=== PATIENT | male | born 1970 | race Caucasian/White ===

== ENCOUNTER 2017-07-02 22:18 | Inpatient (IN) | END 2017-07-07 14:58 | disposition home or self-care (01) | DRG 440 ==

== ENCOUNTER 2017-09-26 00:36 | Emergency (ER) | END 2017-09-26 06:40 | disposition home or self-care (01) ==

== ENCOUNTER 2018-11-06 11:07 | Inpatient (IN) | payer OTHER ==
[~2018-11-06] VITALS: Ht 175.3 cm; Wt 103.5 kg
[~2018-11-06 11:07] MED LIST: ALPR0.5T PO; CIPR500T4 PO; DOCU-144 PO; DOCU-216 PO; FAMO20TA18 PO; GLIP5TAB13 PO; HYDR-3601 PO; HYDR-4011 PO; IBUP-1542 PO; MAGN400O19 PO; METF-849 PO; METR-122 PO
[2018-11-06] MEDS ORDERED: KETOROLAC 15 MG INJ IV STA (11:44)
[2018-11-06] MEDS ORDERED: HEPARIN 25000 UNITS/250 ML 250 ML IV STA ×2 (12:38)
[2018-11-06] MEDS ORDERED: NITROGLYCERIN (SL) 0.4 MG TAB ONE (12:38)
[2018-11-06] MEDS ORDERED: HEPARIN 1000 UNITS/ML 10 ML INJ ONE ×2 (12:41→13:49)
[2018-11-06] MEDS: NITROGLYCERIN (SL) 0.4 MG TAB SL PRN ×2 (12:48→13:35)
[2018-11-06] MEDS ORDERED: NITROGLYCERIN (SL) 0.4 MG TAB SL ONE (13:00)
[2018-11-06] MEDS ORDERED: ATORVASTATIN 80 MG TAB PO ONE (13:00)
[2018-11-06] MEDS ORDERED: HEPARIN 1000 UNITS/ML 10 ML INJ IV ONE (13:00)
[2018-11-06] MEDS ORDERED: ONDANSETRON 4 MG INJ IV STA (13:13)
[2018-11-06] MEDS ORDERED: morphine 4 MG/ML VIAL IV STA (13:13)
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
[2018-11-06] MEDS ORDERED: FENTAnyl 50 MCG/ML VIAL ONE (13:49)
[2018-11-06] MEDS ORDERED: LIDOCAINE 1% (MDV) 20 ML INJ ONE (13:49)
[2018-11-06] MEDS ORDERED: MIDAZOLAM 1 MG/ML 2 ML INJ ONE (13:49)
[2018-11-06] MEDS ORDERED: IODIXANOL LOCM 100 ML BTL ONE (13:49)
[2018-11-06] MEDS ORDERED: VERAPAMIL 5 MG INJ ONE ×2 (13:50→14:19)
[2018-11-06] MEDS ORDERED: NITROGLYCERIN (IC) 100 MCG/ML INJ ONE ×2 (13:50→14:29)
--- NOTE | 2018-11-06 13:56 | CONS ---
Assessment/Plan Assessment/Plan Hospital Course (Demo Recall) Acute anterior ST elevation myocardial infarction Severe coronary artery disease include 100% occlusion of the LAD as well as significant obtuse marginal and ramus intermediate disease Status post emergent PCI of the left anterior descending artery Diabetes Most likely dyslipidemia History of pancreatitis History of anxiety Abnormal EKG due to above Recommendations: Aspirin and Brilinta needs to be continued. Importance of compliant with the medication was emphasized to the patient. Prescription has been left for the patient with the coupons so he can have it filled as soon as possible. Echocardiogram will be checked tomorrow. Serial cardiac enzyme will be checked but is expected to be elevated and rising over the next 24 hours at least Diabetic management as per internal medicine Statin has been started ICU care will be continued Angiomax will be continued for the next 2 to 3 hours. She to be pulled 2 hours after Angiomax was stopped We will plan for PCI of ramus intermediate and possibly obtuse marginal in about 48 hours if patient remains stable and no complication with the current PCI and patient remains compliant with the medication. I have my reservations about his complaints he has not been taking medication before as he was discharged a year ago with diabetic medication. I have emphasized with him multiple times the importance of compliant with the medication. More than 45 minutes critical care time was spent management treatment is critically ill patient excluding any procedures Thank you for this referral. We will continue to follow along with you JEWEL HERNANDEZ MD [facility] Consultation Date/Type/Reason Admit Date/Time Date of Consultation: Nov 06, 2018 Type of Consult Cardiology Reason for Consultation stemi Requesting Provider: NEELA SHIRLEY MD Date/Time of Note DATE: 11/06/18 TIME: 13:56 Hx of Present Illness Emergent interventional cardiology consultation note/critical care note Chief complaint: Chest pain Reason for consult: ST elevation [place] History of present illness: Thank you for this referral. History was informed the patient discussion with the staff and physician review of the old chart. This is a 47-year-old gentleman with history of diabetes although on no medication, pancreatitis about a year ago, anxiety who presents emergency room with cough complaint of chest pain. Pain Has been on and off. When he got the emergency room initially the pain was improved. EKG EKG done initially in the emergency did not show acute ST elevation myocardial infarction. Troponin was positive. Patient was diagnosed with non-ST elevation myocardial infarction However later on patient complained of recurrent chest pain and worsening. EKG repeated at [address] elevation myocardial infarction preop was called at that time code STEMI was activated. Patient was seen by me in the emergency room. After evaluation consent was obtained for emergent coronary angiography Patient underwent emergent coronary angiography and PCI of his underpants and occluded LAD. Patient currently in the ICU on Angiomax drip. His chest pain has significantly reduced now. He was also noted to have multivessel disease including significant ramus very small obtuse marginal disease as well. Allergies: No known drug allergies Medications At Home none Family history: No history of early coronary artery disease Social history: Does not smoke or drink Past medical history: History of pancreatitis 2018. At that time he was noted to have also diabetes has been discharged on oral medication which he has not taken any has not follow with any doctors. Review of system: Patient denies all others except for above-mentioned Past Medical History Home Meds Discontinued Scripts Hydrocodone/Acetaminophen ([place] 5-325 Tablet) 1 Each Tablet, 1 TAB PO Q6H PRN for PAIN, #20 TAB Prov:SUZI,AYLA 09/26/17 Ibuprofen* (Motrin*) 600 Mg Tab, 600 MG PO Q6, #30 TAB Prov:SUZI,AYLA 18 Magnesium Hydroxide* (Milk Of Magnesia*) 400 Mg/5 Ml Oral.susp, 30 ML PO DAILY for CONSTIPATION, #200 ML Prov:BROOKS,BEN V. PHARMACEUTICAL LABORATORY TECHNICIAN 07/07/17 Docusate Sodium* (Colace*) 100 Mg Capsule, 200 MG PO DAILY, #30 CAP Prov:BROOKS,BEN V. PHARMACEUTICAL LABORATORY TECHNICIAN 07/07/17 Glipizide* (Glipizide*) 5 Mg Tablet, 5 MG PO AC BREAKFAST, #30 TAB Prov:BROOKS,BEN V. PHARMACEUTICAL LABORATORY TECHNICIAN 07/07/17 Metformin* (Glucophage*) 500 Mg Tab, 500 MG PO WITH BREAKFAST DINNE, #60 TAB Prov:BROOKS,BEN V. PHARMACEUTICAL LABORATORY TECHNICIAN 07/07/17 Alprazolam* (Xanax*) 0.5 Mg Tab, 0.5 MG PO Q12 PRN for ANXIETY, #30 TAB Prov:BROOKS,BEN V. PHARMACEUTICAL LABORATORY TECHNICIAN 07/06/17 Metronidazole* (Metronidazole*) 500 Mg Tablet, 500 MG PO Q8 for 5 Days, #15 TAB Prov:BROOKS,BEN V. PHARMACEUTICAL LABORATORY TECHNICIAN 07/06/17 Ciprofloxacin Hcl* (Ciprofloxacin Hcl*) 500 Mg Tablet, 500 MG PO BID for 5 Days, #10 TAB Prov:BROOKSTUNGA V. PHARMACEUTICAL LABORATORY TECHNICIAN 07/06/17 Docusate Sodium (Dok) 100 Mg Capsule, 100 MG PO BID, #60 CAP Prov:BROOKS,BEN V. PHARMACEUTICAL LABORATORY TECHNICIAN 07/06/17 Famotidine* (Famotidine*) 20 Mg Tablet, 20 MG PO HS, #30 TAB Prov:BROOKSPEARLBEN V. PHARMACEUTICAL LABORATORY TECHNICIAN 07/06/17 Hydrocodone Bit-Acetaminophen (Hydrocodone Bit-APAP) 5-325MG Tablet, 1 TAB PO Q4H PRN for PAIN, #14 TAB Prov:BROOKSTUNGA V. PHARMACEUTICAL LABORATORY TECHNICIAN 07/06/17 Medications Current Medications Nitroglycerin (Nitroglycerin (Sl Tab) 0.4 Mg) 1 tab Q5M UP TO 3 DOSES PRN SL .CHEST PAIN Last administered on 11/06/18at 13:35; Admin Dose 1 TAB; Start 11/06/18 at 13:00 Allergies: Coded Allergies: No Known Allergy (Unverified , 11/06/18) Past Surgical History Past Surgical Hx: no surgical history Social History Smoking Status: Never smoker Exam/Review of Systems Vital Signs Vitals Vital Signs Date Temp Pulse Resp B/P (MAP) Pulse Ox O2 O2 Flow FiO2 Time Delivery Rate 11/06/18 97.2 60 16 155/93 99 11:16 (113) Exam Exam General: no acute distress HEENT: NC/AT. pupils are equal. round. NECK: NO JVD. no stridor. CV: RRR. systolic murmur; no gallop or rubs. PULM: no wheezing or rhonchi. GI: SOFT, NT, ND, no rebound or guarding Extremity: trace B/L LE edema. no clubbing. neuro: awake and alert, OX3. Psych: calm and pleasant rectal: deferred : normal Vascular right femoral arterial sheath in place no active bleeding or hematoma noted EKGs multiple were reviewed. Initial EKG showed normal sinus rhythm with ST-T wave abnormalities. Subsequent EKG has showed normal sinus rhythm with anterior ST elevation myocardial infarction with reciprocal changes Chest x-ray done emergency room showed no acute cardiopulmonary disease Labs Result Diagram: 11/06/18 1111 11/06/18 1111 Results 24hrs Laboratory Tests Test 11/06/18 11:11 White Blood Count 11.2 #H Red Blood Count 5.08 # Hemoglobin 15.8 # Hematocrit 44.9 Mean Corpuscular Volume 88.4 Mean Corpuscular Hemoglobin 31.1 Mean Corpuscular Hemoglobin Concent 35.2 Red Cell Distribution Width 12.2 Platelet Count 275 Mean Platelet Volume 11.5 H Immature Granulocytes % 0.300 Neutrophils % 51.7 Lymphocytes % 30.4 Monocytes % 13.4 H Eosinophils % 3.4 Basophils % 0.8 Nucleated Red Blood Cells % 0.0 Immature Granulocytes # 0.030 Neutrophils # 5.8 Lymphocytes # 3.4 H Monocytes # 1.5 H Eosinophils # 0.4 Basophils # 0.1 Nucleated Red Blood Cells # 0.0 Prothrombin Time 12.0 Prothrombin Time Ratio 0.9 INR International Normalized Ratio 0.88 Activated Partial Thromboplast Time 22.8 L Sodium Level 139 Potassium Level 4.0 Chloride Level 104 Carbon Dioxide Level 26 Anion Gap 9 Blood Urea Nitrogen 9 Creatinine 0.71 Est Glomerular Filtrat Rate mL/min > 60 Glucose Level 233 H Calcium Level 8.7 Total Bilirubin 0.9 Direct Bilirubin 0.00 Indirect Bilirubin 0.9 Aspartate Amino Transf (AST/SGOT) 57 H Alanine Aminotransferase (ALT/SGPT) 76 H Alkaline Phosphatase 98 Troponin I 0.681 *H B-Type Natriuretic Peptide 162 H Total Protein 7.0 Albumin 3.6 Globulin 3.40 H Albumin/Globulin Ratio 1.05 Medications Medications Current Medications Nitroglycerin (Nitroglycerin (Sl Tab) 0.4 Mg) 1 tab Q5M UP TO 3 DOSES PRN SL .CHEST PAIN Last administered on 11/06/18at 13:35; Admin Dose 1 TAB; Start 11/06/18 at 13:00 JEWEL HERNANDEZ MD Nov 06, 2018 13:56
[2018-11-06] MEDS ORDERED: HYDROCODONE/APAP (5/325) TAB PO PRN (14:00)
[2018-11-06] MEDS ORDERED: ACETAMINOPHEN 325 MG TAB PO PRN ×2 (14:00→15:30)
[2018-11-06] MEDS ORDERED: morphine 2 MG INJ IV PRN ×2 (14:00→15:30)
[2018-11-06] MEDS ORDERED: ONDANSETRON 4 MG INJ IV PRN (14:00)
[2018-11-06] MEDS ORDERED: NACL 0.9% 3 ML SYG IV SCH (14:00)
--- NOTE | 2018-11-06 14:00 | EN ---
Date/Time of Note Date/Time of Note DATE: 11/06/18 TIME: 13:59 Event Note Cardiology Cardiology Event Note 47-year-old presented with anterior elevation myocardial infarction. Code STEMI was activated. Patient was seen by myself in the emergency room. Response alternatives of defecating selective right and left coronary angiography possible percutaneous coronary intervention discussed with the patient in detail. High risk of procedure including risk of infection vascular complication bleeding complication SD stroke arrhythmia renal failure etc. discussed with the patient. Consent has been obtained. We will proceed with procedure as soon as the Encoding Machine Operator team is here.. Full note will follow JEWEL HERNANDEZ MD Nov 06, 2018 14:00
--- NOTE | 2018-11-06 14:06 | HP ---
Date/Time of Note Date/Time of Note DATE: 11/06/18 TIME: 14:06 Assessment/Plan VTE Prophylaxis Pharmacological prophylaxis: other Assessment/Plan Hospital Course Patient is a male with no sniffing past medical history as patient has not seen doctors in quite some time who presents to [facility] for chest pain. Patient states that chest pain began around 10 AM this morning and it feels centralized and it feels general and as if it is a crushing feeling. Patient states that all the chest pain is mildly better it is still not gone away. Code STEMI was called. Patient currently denies any other symptoms. Denies significant shortness of breath, headache, nausea, vomiting, abdominal pain, leg pain, bowel or bladder dysfunction. Objective Physical physical exam General: Patient is laying in bed and answers questions appropriately Mentation: Patient is alert and oriented 4, Head: Normocephalic atraumatic Eyes: EOMI, pupils reactive to light Neck: Supple, nontender, midline Respiratory: Clear to auscultation bilaterally Cardiovascular: regular rate, no obvious murmurs Gastrointestinal: non-tender to palpation, bowel sounds heard. Neurological: Moves all extremities spontaneously Skin: No new skin lesions Assessment and plan ST elevation [place] -Cardiology to take patient into cardiac cath -Medications per cardiology Chest pain -Secondary to above ST elevation [place] Mild elevated AST and ALT -Very mild, monitor tomorrow, consider ultrasound if values increase Disposition -Patient to go to cardiac cath for emergent STEMI cath Result Diagram: 11/06/18 1111 11/06/18 1111 Results 24hrs Laboratory Tests Test 11/06/18 11:11 White Blood Count 11.2 #H Red Blood Count 5.08 # Hemoglobin 15.8 # Hematocrit 44.9 Mean Corpuscular Volume 88.4 Mean Corpuscular Hemoglobin 31.1 Mean Corpuscular Hemoglobin Concent 35.2 Red Cell Distribution Width 12.2 Platelet Count 275 Mean Platelet Volume 11.5 H Immature Granulocytes % 0.300 Neutrophils % 51.7 Lymphocytes % 30.4 Monocytes % 13.4 H Eosinophils % 3.4 Basophils % 0.8 Nucleated Red Blood Cells % 0.0 Immature Granulocytes # 0.030 Neutrophils # 5.8 Lymphocytes # 3.4 H Monocytes # 1.5 H Eosinophils # 0.4 Basophils # 0.1 Nucleated Red Blood Cells # 0.0 Prothrombin Time 12.0 Prothrombin Time Ratio 0.9 INR International Normalized Ratio 0.88 Activated Partial Thromboplast Time 22.8 L Sodium Level 139 Potassium Level 4.0 Chloride Level 104 Carbon Dioxide Level 26 Anion Gap 9 Blood Urea Nitrogen 9 Creatinine 0.71 Est Glomerular Filtrat Rate mL/min > 60 Glucose Level 233 H Calcium Level 8.7 Total Bilirubin 0.9 Direct Bilirubin 0.00 Indirect Bilirubin 0.9 Aspartate Amino Transf (AST/SGOT) 57 H Alanine Aminotransferase (ALT/SGPT) 76 H Alkaline Phosphatase 98 Troponin I 0.681 *H B-Type Natriuretic Peptide 162 H Total Protein 7.0 Albumin 3.6 Globulin 3.40 H Albumin/Globulin Ratio 1.05 HPI/ROS Admit Date/Time Admit Date/Time PMH/Family/Social Past Medical History Medications Current Medications Nitroglycerin (Nitroglycerin (Sl Tab) 0.4 Mg) 1 tab Q5M UP TO 3 DOSES PRN SL .CHEST PAIN Last administered on 11/06/18at 13:35; Admin Dose 1 TAB; Start 11/06/18 at 13:00 Coded Allergies: No Known Allergy (Unverified , 11/06/18) Past Surgical History Past Surgical Hx: no surgical history Family History Significant Family History: no pertinent family hx Social History Smoking Status: Never smoker Exam/Review of Systems Vital Signs Vitals Vital Signs Date Temp Pulse Resp B/P (MAP) Pulse Ox O2 O2 Flow FiO2 Time Delivery Rate 11/06/18 97.2 60 16 155/93 99 11:16 (113) NEELA MEDINA Nov 06, 2018 14:06
[2018-11-06] MEDS ORDERED: TICAGRELOR 90 MG TABLET ONE (14:12)
[2018-11-06] MEDS ORDERED: DEXTROSE 50% 50 ML SYRINGE IV PRN ×2 (14:30)
[2018-11-06] MEDS ORDERED: GLUCAGON 1 MG INJ IM PRN (14:30)
[2018-11-06] MEDS ORDERED: GLUCOSE GEL 15 GRAM TUBE PO PRN ×2 (14:30)
[2018-11-06] MEDS ORDERED: GLUCOSE GEL 15 GRAM TUBE BUCCAL PRN (14:30)
[2018-11-06] MEDS ORDERED: SOD CHLORIDE 0.9% 1,000 ML IV SCH (15:09)
--- NOTE | 2018-11-06 15:09 | OPR ---
Date/Time of Note Date/Time of Note DATE: 11/06/18 TIME: 15:04 Operative Report Procedure Date: Nov 06, 2018 Preoperative Diagnosis anterior STEMI Postoperative Diagnosis same Operation/Procedure Performed PCI LAD Surgeon see signature line Microsoft Bi Developer JESSIE Anesthesia Type: moderate sedation Estimated Blood Loss: minimal Transfusion none Specimen none Grafts/Implants none Complications none Procedure Description Viticulture Teacher: Jewel Coats MD Indication:. ST elevation myocardial infarction Procure performed: #1 Emergent left heart catheterization and selective right and left coronary angiogram #2 Right femoral angiogram 3. Emergent successful PTCA and stenting of proximal left anterior descending artery using a 3 x 38 mm Synergy drug-eluting stent 4. Thrombectomy of the left anterior descending artery using a Pronto device 5. Moderate sedation for more than 60 minutes Findings: 1. Left main: is normal and trirfurcates to LAD & LCX and ramus intermediate 2. LAD: has 100 % stenosis at proximal LAD with BYRON 0 flow. Successful PCI of this lesion no significant residual stenosis left 3. Left circumflex artery: is condominant. OM1 is a small and has has subtotal ostial stenosis 4. RCA: is codominant. it has 50 % stenosis at PDA 5. Ramus intermedius small to moderate-sized vessel with about up to 80-90 % stenosis LV EDP is 20 with no significant gradient across aortic valve Procedure in detail: Written informed consent with obtained after risks benefits and alternatives discussed with the patient in detail. risks including but not limited to risk of infection vascular complications, bleeding complications, HI stroke arrhythmia renal failure at even were discussed with the patient in detail. Patient was brought into the cardiac laborer operator and placed in supine position. Right and left groin area was prepped and draped in regular sterile fashion and then he was in anesthetized using 1% lidocaine. Right femoral artery was cannulated and using modified seldinger technique a 6 Telugu sheath was placed in the femoral artery. . JR4 catheter was advanced and engaged into the right coronary artery and angiographic view was obtained. A total of 4 guiding catheter was advanced to engage the left main coronary artery. MW wire was used and advanced across the lesion and placed distal to the lesion. I used a 2.5 x 12 mm balloon which was placed across the lesion and predilated the vessel. Then I used a Pronto and thrombectomy was done of the large amount of clot was removed. Intermittent intracoronary nitroglycerin verapamil was given. The knee is a 2.5 x 15 mm balloon and dilated the vessel more. Then I used a 3 x 30 mm Synergy drug-eluting stent which was placed across the lesion and deployed at 12 Johnnie. Finally a 3.25 x 8 mm noncompliant balloon was used and postdilated the stent and up to 20 Johnnie. Final angiographic view was obtained which showed BYRON-3 flow no evidence of dissection and no significant residual stenosis at the site of the stent. Then a pigtail was advanced to engage the left ventricle hemodynamics as recorded by pullback aortic pressure was measured. Femoral angiogram was performed Patient tolerated the procedure well with no complication. Patient is to be transferred to recovery room in stable condition. contrast used: Under 30 cc Visipaque Conclusions: Successful PTCA, thrombectomy/stenting of the proximal left anterior descending artery from 100% occlusion to no significant residual st enosis using a 3 x 30 mm Synergy drug-eluting stent Recommendations: Aggressive medical therapy. aspirin indefinitely dual antiplatlet therapy with aspirin and Brilinta. Will consider PCI of ramus and possibly obtuse marginal later time ICU care overnight JEWEL COATS MD [facility] JEWEL COATS MD Nov 06, 2018 15:09
[2018-11-06] MEDS ORDERED: OXYCODONE/ACETAMINOPHEN (5/325) TAB PO PRN ×2 (15:30)
[2018-11-06] MEDS ORDERED: BIVALIRUDIN 250 MG in SOD CHLORIDE 0.9% 500 ML IV SCH (15:30)
[2018-11-06 16:00] VITALS: PULSE 67
[2018-11-06 16:15] VITALS: Ht 175.3 cm; Wt 103.5 kg
[2018-11-06] MEDS: INSULIN ASPART [NOVOLOG] 3 ML PEN SC SCH ×2 (17:35→20:44)
[2018-11-06 19:00] VITALS: BP 139/88; RESP 15
[2018-11-06 20:00] VITALS: BP 121/73; PULSE 71; RESP 20
[2018-11-06] MEDS: ATORVASTATIN 80 MG TAB PO SCH (20:29)
[2018-11-06] MEDS: TICAGRELOR 90 MG TABLET PO SCH (20:43)
[2018-11-06] MEDS: DOCUSATE SODIUM 100 MG CAP PO SCH (20:45)
[2018-11-06 21:00] VITALS: BP 122/76; PULSE 76; RESP 18
[2018-11-06 22:00] VITALS: BP 152/91; PULSE 72; RESP 19
[2018-11-06 23:00] VITALS: BP 136/106; PULSE 84; RESP 12
[2018-11-07] VITALS (25 sets, daily range): BP systolic 82–130; BP diastolic 45–97; PULSE 67–111; RESP 13–26
[2018-11-07] MEDS: ACCU-CHEK XX SCH (01:40)
[2018-11-07] MEDS: INSULIN ASPART [NOVOLOG] 3 ML PEN SC SCH ×4 (08:34→20:32)
[2018-11-07] MEDS: TICAGRELOR 90 MG TABLET PO SCH ×2 (08:51→20:33)
[2018-11-07] MEDS: ASPIRIN (EC) 81 MG TAB PO SCH (08:53)
[2018-11-07] MEDS: DOCUSATE SODIUM 100 MG CAP PO SCH ×2 (08:53→20:34)
[2018-11-07] MEDS ORDERED: ENOXAPARIN 80 MG/0.8 ML SYG SC SCH (10:00)
[2018-11-07] MEDS ORDERED: AMIODARONE 150MG/D5W BOLUS 100 ML IV ONE (10:00)
[2018-11-07] MEDS ORDERED: AMIODARONE 900 MG in DEXTROSE 5% 482 ML IV SCH (10:30)
--- NOTE | 2018-11-07 14:16 | PN ---
Date/Time of Note Date/Time of Note DATE: 11/07/18 TIME: 14:09 Assessment/Plan VTE Prophylaxis Risk score (from Nsg)>0 risk: 3 SCD applied (from Nsg): No SCD contraindicated: low risk/ambulating Pharmacological prophylaxis: other (per cardiology) Lines/Catheters IV Catheter Type (from Nrs): Peripheral IV Urinary Cath still in place: No Assessment/Plan Assessment/Plan 47 yo man newly diagnosed diabetes presents with acute STEMI #ST elevation WI - s/p cardiac cath 10/06 with PCI to LAD - Tentative plan to return to lab pack chemist for staged stenting. - Dual antiplatelet per cardiology. Looks like plavix will be better for insurance than brilinta. - Dr. Coats following. #A fib - Possible episode of A fib the morning of 10/07 - Per [facility]OSIAN[facility] Trial ([facility], August 2018), patient with both A fib and ACS s/p PCI may benefit most from anti-factor Xa plus clopidogrel WITHOUT aspirin. - Will defer to cardiology. #Mild elevated AST and ALT -Likely due to ACS DVT: SCDs GI: None Result Diagram: 11/07/1851211/07/18512 Subjective 24 Hr Interval Summary Free Text/Dictation After PCI last night patient had episode of possible atrial fibrillation this morning associated with heart palpitations. Says he's had palpitations in the past he attributed to anxiety. Otherwise feeling well, tolerating diet. Hasn't tried ambulating. Exam/Review of Systems Exam Vitals Vital Signs Date Temp Pulse Resp B/P (MAP) Pulse Ox O2 O2 Flow FiO2 Time Delivery Rate 11/07/18 72 12:00 11/07/18 23 89/48 (62) 96 Room Air 11:00 11/07/18 98.5 08:00 11/06/18 2.0 13:45 Intake and Output 11/06/18 11/06/18 11/07/18 1515:00 23:00 07:00 IntakeIntake Total 1502 ml OutputOutput Total 865 ml 570 ml BalanceBalance 637 ml -570 ml Exam General: Patient is laying in bed and answers questions appropriately Mentation: Patient is alert and oriented 4 Head: Normocephalic atraumatic Eyes: EOMI, pupils reactive to light Neck: Supple, nontender, midline Respiratory: Clear to auscultation bilaterally Cardiovascular: regular rate, no obvious murmurs Gastrointestinal: non-tender to palpation, bowel sounds heard. Ext: R femoral sheath site well healed, no hematoma. Results Results 24hrs Laboratory Tests Test 11/06/18 18:06 11/06/18 19:03 11/06/18 20:33 11/07/18 01:39 Bedside Glucose 179 174 214 Creatine Kinase 2784 H Creatine Kinase 3.8 Index Creatinine Kinase MB 105.00 H (Mass) Troponin I 134.000 *H Test 11/07/18 05:13 11/07/18 05:17 11/07/18 08:30 11/07/18 12:33 White Blood Count 12.7 H Red Blood Count 4.41 L Hemoglobin 13.6 L Hematocrit 39.0 L Mean Corpuscular 88.4 Volume Mean Corpuscular 30.8 Hemoglobin Mean Corpuscular 34.9 Hemoglobin Concent Red Cell 12.5 Distribution Width Platelet Count 204 # Mean Platelet Volume 12.1 H Immature 0.500 H Granulocytes % Neutrophils % 75.6 Lymphocytes % 9.8 L Monocytes % 12.5 H Eosinophils % 1.2 Basophils % 0.4 Nucleated Red Blood 0.0 Cells % Immature 0.060 H Granulocytes # Neutrophils # 9.6 H Lymphocytes # 1.2 Monocytes # 1.6 H Eosinophils # 0.2 Basophils # 0.1 Nucleated Red Blood 0.0 Cells # Sodium Level 138 Potassium Level 4.3 Chloride Level 107 Carbon Dioxide Level 26 Anion Gap 5 Blood Urea Nitrogen 9 Creatinine 0.70 Est Glomerular > 60 Filtrat Rate mL/min Glucose Level 194 Hemoglobin A1c 8.5 H Calcium Level 8.0 L Magnesium Level 2.0 Total Bilirubin 1.2 Direct Bilirubin 0.00 Indirect Bilirubin 1.2 H Aspartate Amino 328 #H Transf (AST/SGOT) Alanine 97 H Aminotransferase (AL T/SGPT) Alkaline Phosphatase 67 Creatine Kinase 1268 #H Creatine Kinase 3.1 Index Creatinine Kinase MB 39.50 H (Mass) Troponin I 102.000 *H B-Type Natriuretic 1440 H Peptide Total Protein 5.9 #L Albumin 3.0 L Globulin 2.90 Albumin/Globulin 1.03 Ratio Triglycerides Level 150 H Cholesterol Level 178 LDL Cholesterol, 123 Calculated HDL Cholesterol 25 L Cholesterol/HDL 7.1 Ratio Thyroid Stimulating 3.230 Hormone (TSH) Free Thyroxine 1.20 Bedside Glucose 197 227 H 288 H Medications Medication Current Medications Nitroglycerin (Nitroglycerin (Sl Tab) 0.4 Mg) 1 tab Q5M UP TO 3 DOSES PRN SL .CHEST PAIN Last administered on 11/06/18at 13:35; Admin Dose 1 TAB; Start 11/06/18 at 13:00 IV Flush (NS 3 ml) 3 ml PER PROTOCOL IV ; Start 11/06/18 at 14:00 Acetaminophen (Tylenol Tab) 650 mg Q6H PRN PO .PAIN 1-3 OR TEMP; Start 11/06/18 at 14:00 Acetaminophen/ Hydrocodone Bitart ([place] (5/325)) 1 tab Q6H PRN PO .PAIN 4-6; Start 11/06/18 at 14:00 Morphine Sulfate (morphine) 2 mg Q4H PRN IV .PAIN 7-10 Last administered on 11/07/18at 03:00; Admin Dose 2 MG; Start 11/06/18 at 14:00 Diagnostic Test (Pha) (Accu-Chek) 1 ea 02 XX ; Start 11/07/18 at 02:00 Insulin Aspart (Novolog Insulin Pen) NOVOLOG *MILD* ALGORITHM WITH MEALS BEDTIME SC Last administered on 11/07/18at 12:45; Admin Dose 4 UNIT; Start 11/06/18 at 17:35 Miscellaneous Information 1 ea NOTE XX ; Start 11/06/18 at 14:30 Glucose (Glutose) 15 gm Q15M PRN PO DECREASED GLUCOSE; Start 11/06/18 at 14:30 Glucose (Glutose) 22.5 gm Q15M PRN PO DECREASED GLUCOSE; Start 11/06/18 at 14:30 Dextrose (D50w Syringe) 25 ml Q15M PRN IV DECREASED GLUCOSE; Start 11/06/18 at 14:30 Dextrose (D50w Syringe) 50 ml Q15M PRN IV DECREASED GLUCOSE; Start 11/06/18 at 14:30 Glucagon (Glucagen) 1 mg Q15M PRN IM DECREASED GLUCOSE; Start 11/06/18 at 14:30 Glucose (Glutose) 15 gm Q15M PRN BUCCAL DECREASED GLUCOSE; Start 11/06/18 at 14:30 Aspirin (Halfprin) 81 mg DAILY PO Last administered on 11/07/18at 08:53; Admin Dose 81 MG; Start 11/07/18 at 09:00 Ticagrelor (Brilinta) 90 mg BID PO Last administered on 11/07/18at 08:51; Admin Dose 90 MG; Start 11/06/18 at 21:00 Acetaminophen (Tylenol Tab) 650 mg Q4H PRN PO PAIN; Start 11/06/18 at 15:30 Oxycodone/ Acetaminophen (Percocet (5/ 325)) 1 tab Q4H PRN PO PAIN; Start 11/06/18 at 15:30 Oxycodone/ Acetaminophen (Percocet (5/ 325)) 2 tab Q4H PRN PO PAIN; Start 11/06/18 at 15:30 Morphine Sulfate (morphine) 1 mg Q1H PRN IV PAIN LEVEL 6-10; Start 11/06/18 at 15:30 Ondansetron HCl (Zofran Inj) 4 mg Q4H PRN IV NAUSEA AND/OR VOMITING; Start 11/06/18 at 15:30 Docusate Sodium (Colace) 100 mg BID PO Last administered on 11/07/18at 08:53; Admin Dose 100 MG; Start 11/06/18 at 21:00 Carvedilol (Coreg) 3.125 mg BID PO Last administered on 11/07/18at 08:53; Admin Dose 3.125 MG; Start 11/06/18 at 21:00 Atorvastatin Calcium (Lipitor) 80 mg DAILY@21 PO Last administered on 11/06/18at 20:29; Admin Dose 80 MG; Start 11/06/18 at 21:00 Amiodarone HCl 900 mg/Dextrose 500 ml @ 0 mls/hr Q0M IV Last administered on 11/07/18at 10:50; Admin Dose 33.3 MLS/HR; Start 11/07/18 at 10:30; Stop 11/08/18 at 10:29 ELOISE TUCKER MD Nov 07, 2018 14:16
--- NOTE | 2018-11-07 15:23 | CONS ---
Consult Date/Type/Reason Admit Date/Time Nov 06, 2018 at 13:03 Initial Consult Date 11/06/18 Requesting Provider: NEELA SHIRLEY MD Date/Time of Note DATE: 11/07/18 TIME: 15:20 Subjective Interventional cardiology follow-up progress note/critical care note Subjective: Discussed with the staff of multiple physicians. Telemetry was reviewed. Patient went into atrial fibrillation with ventricular response. Started amiodarone converted back to sinus rhythm. He denies any more chest pain or pressure to me denies any groin pain to me. Patient still in ICU. Objective: General: no acute distress HEENT: NC/AT. pupils are equal. round. NECK: NO JVD. no stridor. CV: RRR. systolic murmur; no gallop or rubs. PULM: no wheezing or rhonchi. GI: SOFT, NT, ND, no rebound or guarding Extremity: trace B/L LE edema. no clubbing. neuro: awake and alert, OX3. Psych: calm and pleasant rectal: deferred : normal Vascular: Right femoral no bleeding or hematoma EKG was personally reviewed which shows sinus rhythm with proximal atrial fibrillation anteroseptal infarct age undetermined echo reviewed personally: Normal left ventricular cavity size. Mild concentric left ventricular hypertrophy. Moderate left ventricular systolic dysfunction. Ejection fraction is visually estimated at 35-40 %. Abnormal Diastolic Function. These segments of the LV are hypokinetic mid anterior segment, apical anterior segment, apical lateral segment, anteroseptum mid segment, apex and apical septum. The left atrium is normal in size. Mitral valve leaflets appear mildly thickened. Mild mitral annular calcification. Trace mitral regurgitation. Normal appearance of the aortic valve. No significant aortic stenosis or insufficiency. Normal appearance and function of the tricuspid valve with trace physiologic regurgitation. Normal right ventricular systolic pressure. Objective Vitals Vital Signs Date Temp Pulse Resp B/P (MAP) Pulse Ox O2 O2 Flow FiO2 Time Delivery Rate 11/07/18 82 16 124/70 99 Room Air 15:00 (88) 11/07/18 98.7 12:00 11/06/18 2.0 13:45 Intake and Output 11/06/18 11/06/18 11/07/18 1515:00 23:00 07:00 IntakeIntake Total 1502 ml OutputOutput Total 865 ml 570 ml BalanceBalance 637 ml -570 ml Results/Medications Result Diagram: 11/07/18 0513 11/07/18 0513 Results 24 hrs Laboratory Tests Test 11/06/18 18:06 11/06/18 19:03 11/06/18 20:33 11/07/18 01:39 Bedside Glucose 179 174 214 Creatine Kinase 2784 H Creatine Kinase 3.8 Index Creatinine Kinase MB 105.00 H (Mass) Troponin I 134.000 *H Test 11/07/18 05:13 11/07/18 05:17 11/07/18 08:30 11/07/18 12:33 White Blood Count 12.7 H Red Blood Count 4.41 L Hemoglobin 13.6 L Hematocrit 39.0 L Mean Corpuscular 88.4 Volume Mean Corpuscular 30.8 Hemoglobin Mean Corpuscular 34.9 Hemoglobin Concent Red Cell 12.5 Distribution Width Platelet Count 204 # Mean Platelet Volume 12.1 H Immature 0.500 H Granulocytes % Neutrophils % 75.6 Lymphocytes % 9.8 L Monocytes % 12.5 H Eosinophils % 1.2 Basophils % 0.4 Nucleated Red Blood 0.0 Cells % Immature 0.060 H Granulocytes # Neutrophils # 9.6 H Lymphocytes # 1.2 Monocytes # 1.6 H Eosinophils # 0.2 Basophils # 0.1 Nucleated Red Blood 0.0 Cells # Sodium Level 138 Potassium Level 4.3 Chloride Level 107 Carbon Dioxide Level 26 Anion Gap 5 Blood Urea Nitrogen 9 Creatinine 0.70 Est Glomerular > 60 Filtrat Rate mL/min Glucose Level 194 Hemoglobin A1c 8.5 H Calcium Level 8.0 L Magnesium Level 2.0 Total Bilirubin 1.2 Direct Bilirubin 0.00 Indirect Bilirubin 1.2 H Aspartate Amino 328 #H Transf (AST/SGOT) Alanine 97 H Aminotransferase (AL T/SGPT) Alkaline Phosphatase 67 Creatine Kinase 1268 #H Creatine Kinase 3.1 Index Creatinine Kinase MB 39.50 H (Mass) Troponin I 102.000 *H B-Type Natriuretic 1440 H Peptide Total Protein 5.9 #L Albumin 3.0 L Globulin 2.90 Albumin/Globulin 1.03 Ratio Triglycerides Level 150 H Cholesterol Level 178 LDL Cholesterol, 123 Calculated HDL Cholesterol 25 L Cholesterol/HDL 7.1 Ratio Thyroid Stimulating 3.230 Hormone (TSH) Free Thyroxine 1.20 Bedside Glucose 197 227 H 288 H Home Meds Discontinued Scripts Hydrocodone/Acetaminophen ([place] 5-325 Tablet) 1 Each Tablet, 1 TAB PO Q6H PRN for PAIN, #20 TAB Prov:SUZI,AYLA 09/26/17 Ibuprofen* (Motrin*) 600 Mg Tab, 600 MG PO Q6, #30 TAB Prov:SUZI,AYLA 09/26/17 Magnesium Hydroxide* (Milk Of Magnesia*) 400 Mg/5 Ml Oral.susp, 30 ML PO DAILY for CONSTIPATION, #200 ML Prov:BROOKS,BEN V. [employer]ORATORY ASSISTANT 07/07/17 Docusate Sodium* (Colace*) 100 Mg Capsule, 200 MG PO DAILY, #30 CAP Prov:BROOKS,BEN V. [employer]ORATORY ASSISTANT 07/07/17 Glipizide* (Glipizide*) 5 Mg Tablet, 5 MG PO AC BREAKFAST, #30 TAB Prov:BROOKS,BEN V[employer]ORATORY ASSISTANT 07/07/17 Metformin* (Glucophage*) 500 Mg Tab, 500 MG PO WITH BREAKFAST DINNE, #60 TAB Prov:BROOKS,BEN V. [employer]ORATORY ASSISTANT 07/07/17 Alprazolam* (Xanax*) 0.5 Mg Tab, 0.5 MG PO Q12 PRN for ANXIETY, #30 TAB Prov:BROOKS,BEN V[employer]ATORY ASSISTANT 07/06/17 Metronidazole* (Metronidazole*) 500 Mg Tablet, 500 MG PO Q8 for 5 Days, #15 TAB Prov:BROOKS,BEN V[employer]ORATORY ASSISTANT 07/06/17 Ciprofloxacin Hcl* (Ciprofloxacin Hcl*) 500 Mg Tablet, 500 MG PO BID for 5 Days, #10 TAB Prov:BROOKS,BEN V[employer]ORATORY ASSISTANT 07/06/17 Docusate Sodium (Dok) 100 Mg Capsule, 100 MG PO BID, #60 CAP Prov:BROOKS,BEN V[employer]ORATORY ASSISTANT 07/06/17 Famotidine* (Famotidine*) 20 Mg Tablet, 20 MG PO HS, #30 TAB Prov:BROOKS,BEN V[employer]ORATORY ASSISTANT 07/06/17 Hydrocodone Bit-Acetaminophen (Hydrocodone Bit-APAP) 5-325MG Tablet, 1 TAB PO Q4H PRN for PAIN, #14 TAB Prov:BROOKS,BEN V[employer]ORATORY ASSISTANT 07/06/17 Medications Current Medications Nitroglycerin (Nitroglycerin (Sl Tab) 0.4 Mg) 1 tab Q5M UP TO 3 DOSES PRN SL .CHEST PAIN Last administered on 11/06/18at 13:35; Admin Dose 1 TAB; Start 11/06/18 at 13:00 IV Flush (NS 3 ml) 3 ml PER PROTOCOL IV ; Start 11/06/18 at 14:00 Acetaminophen (Tylenol Tab) 650 mg Q6H PRN PO .PAIN 1-3 OR TEMP; Start 11/06/18 at 14:00 Acetaminophen/ Hydrocodone Bitart ([place] (5/325)) 1 tab Q6H PRN PO .PAIN 4-6; Start 11/06/18 at 14:00 Morphine Sulfate (morphine) 2 mg Q4H PRN IV .PAIN 7-10 Last administered on 11/07/18at 03:00; Admin Dose 2 MG; Start 11/06/18 at 14:00 Diagnostic Test (Pha) (Accu-Chek) 1 ea 02 XX ; Start 11/07/18 at 02:00 Insulin Aspart (Novolog Insulin Pen) NOVOLOG *MILD* ALGORITHM WITH MEALS BEDTIME SC Last administered on 11/07/18at 12:45; Admin Dose 4 UNIT; Start 11/06 at 17:35 Miscellaneous Information 1 ea NOTE XX ; Start 11/06/18 at 14:30 Glucose (Glutose) 15 gm Q15M PRN PO DECREASED GLUCOSE; Start 11/06/18 at 14:30 Glucose (Glutose) 22.5 gm Q15M PRN PO DECREASED GLUCOSE; Start 11/06/18 at 14:30 Dextrose (D50w Syringe) 25 ml Q15M PRN IV DECREASED GLUCOSE; Start 11/06/18 at 14:30 Dextrose (D50w Syringe) 50 ml Q15M PRN IV DECREASED GLUCOSE; Start 11/06/18 at 14:30 Glucagon (Glucagen) 1 mg Q15M PRN IM DECREASED GLUCOSE; Start 11/06/18 at 14:30 Glucose (Glutose) 15 gm Q15M PRN BUCCAL DECREASED GLUCOSE; Start 11/06/18 at 14:30 Aspirin (Halfprin) 81 mg DAILY PO Last administered on 11/07/18at 08:53; Admin Dose 81 MG; Start 11/07/18 at 09:00 Ticagrelor (Brilinta) 90 mg BID PO Last administered on 11/07/18at 08:51; Admin Dose 90 MG; Start 11/06/18 at 21:00 Acetaminophen (Tylenol Tab) 650 mg Q4H PRN PO PAIN; Start 11/06/18 at 15:30 Oxycodone/ Acetaminophen (Percocet (5/ 325)) 1 tab Q4H PRN PO PAIN; Start 11/06/18 at 15:30 Oxycodone/ Acetaminophen (Percocet (5/ 325)) 2 tab Q4H PRN PO PAIN; Start 11/06/18 at 15:30 Morphine Sulfate (morphine) 1 mg Q1H PRN IV PAIN LEVEL 6-10; Start 11/06/18 at 15:30 Ondansetron HCl (Zofran Inj) 4 mg Q4H PRN IV NAUSEA AND/OR VOMITING; Start 11/06/18 at 15:30 Docusate Sodium (Colace) 100 mg BID PO Last administered on 11/07/18at 08:53; Admin Dose 100 MG; Start 11/06/18 at 21:00 Carvedilol (Coreg) 3.125 mg BID PO Last administered on 11/07/18at 08:53; Admin Dose 3.125 MG; Start 11/06/18 at 21:00 Atorvastatin Calcium (Lipitor) 80 mg DAILY@21 PO Last administered on 11/06/18at 20:29; Admin Dose 80 MG; Start 11/06/18 at 21:00 Amiodarone HCl 900 mg/Dextrose 500 ml @ 0 mls/hr Q0M IV Last administered on 11/07/18at 10:50; Admin Dose 33.3 MLS/HR; Start 11/07/18 at 10:30; Stop 11/08/18 at 10:29 Insulin Glargine (Lantus) 25 units DAILY@2000 SC ; Start 11/07/18 at 20:00 Assessment/Plan Hospital Course (Demo Recall) Acute anterior ST elevation myocardial infarction Severe coronary artery disease include 100% occlusion of the LAD as well as significant obtuse marginal and ramus intermediate disease Status post emergent PCI of the left anterior descending artery Diabetes Most likely dyslipidemia History of pancreatitis History of anxiety Abnormal EKG due to above Paroxysmal atrial fibrillation rapid ventricular response Ischemic cardiomyopathy Recommendations: Aspirin and Brilinta needs to be continued. Importance of compliant with the medication was emphasized to the patient. Prescription has been left for the patient with the coupons so he can have it filled as soon as possible. I have even spoken to the pharmacy and even though initially had said he was not approved to have approved to give him 30-day for free with use of the coupons. Diabetic management as per internal medicine Statin has been started Continue with the Coreg. We will keep the patient amiodarone drip now that he is going to atrial fibrillation. Currently back in sinus still plan for PCI of ramus intermediate and possibly obtuse marginal tomorrow a.m. [facility] was discussed with the patient in detail. Risks include but limited to risk of infection vascular convocation bleeding ideation CO stroke arrhythmia renal failure etc. discussed with the patient. Patient consented to procedure. More than 35 minutes critical care time was spent management treatment is critically ill patient excluding any procedures Thank you for this referral. We will continue to follow along with you JEWEL HERNANDEZ MD [facility] JEWEL HERNANDEZ MD Nov 07, 2018 15:23
--- NOTE | 2018-11-07 15:48 | RADRPT ---
Echocardiogram Report Patient Name: SIMIN EASONPatient ID: [id number] : 1970 (47y 11m)Study Date: 11/07/2018 8:07:43 AM Gender: MAccession #: [id number] Tech: Deyanira Duran RDCS Location: 111 Ref.Physician: JEWEL COATS Height(Cm): BSA: Weight(Kg): Quality: AdequateOrder Physician: JEWEL COATS Account #: Procedures: Echocardiographic Report: Transthoracic echocardiogram with complete 2D, M-Mode, and doppler examination. Indications: STEMI. Measurements: 2D/M Mode Doppler Measurement Value Normal Range Measurement Value Normal Range LVIDd 2D 5.0 [ 4.2 - 5.8 ] cm AV Peak Darren 1.5 [ 100.0 - 170.0 ] cm/sec LVIDs 2D 2.9 [ 2.5 - 4.0 ] cm AV Peak PG 9.0 [ 2.0 - 9.0 ] mmHg LVPWd 2D 1.0 [ 0.6 - 1.0 ] cm LVOT Peak Darren 0.9 [ 70.0 - 110.0 ] cm/sec IVSd 2D 1.1 [ 0.6 - 1.0 ] cm LVOT Peak PG 3.0 [ 2.0 - 6.0 ] mmHg AoR Diam 2D 2.8 [ 2.6 - 3.4 ] cm EDV 2D 119.0 [ 62.0 - 150.0 ] ml ESV 2D 33.0 [ 21.0 - 61.0 ] ml EF 2D 72.3 [ 52.0 - 72.0 ] percent LA Dimen 2D 3.4 [ 3.0 - 4.0 ] cm Findings: Left Ventricle: Normal left ventricular cavity size. Mild concentric left ventricular hypertrophy. Moderate left ventricular systolic dysfunction. Ejection fraction is visually estimated at 35-40 %. Abnormal Diastolic Function. These segments of the LV are hypokinetic mid anterior segment, apical anterior segment, apical lateral segment, anteroseptum mid segment, apex and apical septum. Right Ventricle: Normal right ventricular size. Normal right ventricular systolic function. Left Atrium: The left atrium is normal in size. Right Atrium: The right atrium is normal in size. Mitral Valve: Mitral valve leaflets appear mildly thickened. Mild mitral annular calcification. Trace mitral regurgitation. Aortic Valve: Normal appearance of the aortic valve. No significant aortic stenosis or insufficiency. Tricuspid Valve: Normal appearance and function of the tricuspid valve with trace physiologic regurgitation. Normal right ventricular systolic pressure. Pulmonic Valve: Pulmonic valve not well visualized. Pericardium: Trivial pericardial effusion. Aorta: Normal aortic root. IVC: Normal size and no respiratory collapse consistent with elevated right atrial pressure. Conclusions: Normal left ventricular cavity size. Mild concentric left ventricular hypertrophy. Moderate left ventricular systolic dysfunction. Ejection fraction is visually estimated at 35-40 %. Abnormal Diastolic Function. These segments of the LV are hypokinetic mid anterior segment, apical anterior segment, apical lateral segment, anteroseptum mid segment, apex and apical septum. The left atrium is normal in size. Mitral valve leaflets appear mildly thickened. Mild mitral annular calcification. Trace mitral regurgitation. Normal appearance of the aortic valve. No significant aortic stenosis or insufficiency. Normal appearance and function of the tricuspid valve with trace physiologic regurgitation. Normal right ventricular systolic pressure. Electronically Signed By: Jewel Coats 2018-11-07 15:47:10 PDT
[2018-11-07] MEDS ORDERED: INSULIN GLARGINE [LANTus] (100 UNITS/ML) SYG SC SCH (20:00)
[2018-11-07] MEDS: ATORVASTATIN 80 MG TAB PO SCH (20:33)
[2018-11-07] MEDS: MELATONIN 5 MG TABLET PO PRN (20:56)
[2018-11-07] MEDS ORDERED: MELATONIN 5 MG TABLET PO SCH (21:00)
[2018-11-08] VITALS (22 sets, daily range): BP systolic 87–152; BP diastolic 53–79; PULSE 64–129; RESP 13–25
[2018-11-08] MEDS: ACCU-CHEK XX SCH (02:00)
[2018-11-08] MEDS ORDERED: LIDOCAINE 1% (MDV) 20 ML INJ ONE (07:21)
[2018-11-08] MEDS ORDERED: MIDAZOLAM 1 MG/ML 2 ML INJ ONE (07:21)
[2018-11-08] MEDS ORDERED: NITROGLYCERIN (IC) 100 MCG/ML INJ ONE (07:21)
[2018-11-08] MEDS ORDERED: IODIXANOL LOCM 50 ML BTL ONE (07:21)
[2018-11-08] MEDS ORDERED: IODIXANOL LOCM 100 ML BTL ONE ×2 (07:21→08:27)
[2018-11-08] MEDS ORDERED: FENTAnyl 50 MCG/ML VIAL ONE (07:21)
[2018-11-08] MEDS ORDERED: VERAPAMIL 5 MG INJ ONE (07:23)
--- NOTE | 2018-11-08 07:23 | CONS ---
Consult Date/Type/Reason Admit Date/Time Nov 06, 2018 at 13:03 Initial Consult Date 11/06/18 Type of Consultation: cv Requesting Provider: NEELA SHIRLEY MD Date/Time of Note DATE: 11/08/18 TIME: 07:22 Subjective Interventional cardiology follow-up progress note/critical care note Subjective: Discussed with the staff of multiple physicians. Telemetry was reviewed. Patient has remained in normal sinus rhythm amiodarone drip in the ICU still. He denies any more chest pain or pressure to me denies any groin pain to me. Patient still in ICU. Objective: General: no acute distress HEENT: NC/AT. pupils are equal. round. NECK: NO JVD. no stridor. CV: RRR. systolic murmur; no gallop or rubs. PULM: no wheezing or rhonchi. GI: SOFT, NT, ND, no rebound or guarding Extremity: trace B/L LE edema. no clubbing. neuro: awake and alert, OX3. Psych: calm and pleasant rectal: deferred : normal Vascular: Right femoral no bleeding or hematoma EKG was personally reviewed which shows sinus rhythm with proximal atrial fibrillation anteroseptal infarct age undetermined echo reviewed personally: Normal left ventricular cavity size. Mild concentric left ventricular hypertrophy. Moderate left ventricular systolic dysfunction. Ejection fraction is visually estimated at 35-40 %. Abnormal Diastolic Function. These segments of the LV are hypokinetic mid anterior segment, apical anterior segment, apical lateral segment, anteroseptum mid segment, apex and apical septum. The left atrium is normal in size. Mitral valve leaflets appear mildly thickened. Mild mitral annular calcification. Trace mitral regurgitation. Normal appearance of the aortic valve. No significant aortic stenosis or insufficiency. Normal appearance and function of the tricuspid valve with trace physiologic regurgitation. Normal right ventricular systolic pressure. Objective Vitals Vital Signs Date Temp Pulse Resp B/P (MAP) Pulse Ox O2 O2 Flow FiO2 Time Delivery Rate 11/08/18 79 23 101/64 98 Room Air 06:00 (76) 11/08/18 98.7 04:00 11/06/18 2.0 13:45 Intake and Output 11/07/18 11/07/18 11/08/18 1515:00 23:00 07:00 IntakeIntake Total 560.0 ml 756.9 ml 316.9 ml OutputOutput Total 800 ml 775 ml 1150 ml BalanceBalance -240.0 ml -18.1 ml -833.1 ml Results/Medications Result Diagram: 11/08/18 0500 11/08/18 0500 Results 24 hrs Laboratory Tests Test 11/07/18 08:30 11/07/18 12:33 11/07/18 17:27 11/07/18 20:21 Bedside Glucose 227 H 288 H 224 H 198 Test 11/08/18 01:24 11/08/18 05:00 Bedside Glucose 155 White Blood Count 11.4 H Red Blood Count 4.34 L Hemoglobin 13.6 L Hematocrit 39.3 L Mean Corpuscular 90.6 Volume Mean Corpuscular 31.3 Hemoglobin Mean Corpuscular 34.6 Hemoglobin Concent Red Cell 12.2 Distribution Width Platelet Count 217 Mean Platelet Volume 11.5 H Immature 0.400 Granulocytes % Neutrophils % 67.9 Lymphocytes % 13.1 L Monocytes % 15.3 H Eosinophils % 2.7 Basophils % 0.6 Nucleated Red Blood 0.0 Cells % Immature 0.040 H Granulocytes # Neutrophils # 7.8 H Lymphocytes # 1.5 Monocytes # 1.7 H Eosinophils # 0.3 Basophils # 0.1 Nucleated Red Blood 0.0 Cells # Sodium Level 137 Potassium Level 4.3 Chloride Level 105 Carbon Dioxide Level 29 Anion Gap 3 L Blood Urea Nitrogen 11 Creatinine 0.87 Est Glomerular > 60 Filtrat Rate mL/min Glucose Level 174 Calcium Level 8.6 Phosphorus Level 4.4 Magnesium Level 1.9 Home Meds Discontinued Scripts Hydrocodone/Acetaminophen ([place] 5-325 Tablet) 1 Each Tablet, 1 TAB PO Q6H PRN for PAIN, #20 TAB Prov:SUZI,AYLA 09/26/17 Ibuprofen* (Motrin*) 600 Mg Tab, 600 MG PO Q6, #30 TAB Prov:SUZI,AYLA 09/26/17 Magnesium Hydroxide* (Milk Of Magnesia*) 400 Mg/5 Ml Oral.susp, 30 ML PO DAILY for CONSTIPATION, #200 ML Prov:BROOKS,BEN V. RECORDS ADMINISTRATOR 07/07/17 Docusate Sodium* (Colace*) 100 Mg Capsule, 200 MG PO DAILY, #30 CAP Prov:BROOKS,BEN V. RECORDS ADMINISTRATOR 07/07/17 Glipizide* (Glipizide*) 5 Mg Tablet, 5 MG PO AC BREAKFAST, #30 TAB Prov:BROOKS,BEN V. RECORDS ADMINISTRATOR 07/07/17 Metformin* (Glucophage*) 500 Mg Tab, 500 MG PO WITH BREAKFAST DINNE, #60 TAB Prov:BROOKS,BEN V. RECORDS ADMINISTRATOR 07/07/17 Alprazolam* (Xanax*) 0.5 Mg Tab, 0.5 MG PO Q12 PRN for ANXIETY, #30 TAB Prov:BROOKS,BEN V. RECORDS ADMINISTRATOR 07/06/17 Metronidazole* (Metronidazole*) 500 Mg Tablet, 500 MG PO Q8 for 5 Days, #15 TAB Prov:BROOKS,BEN V. RECORDS ADMINISTRATOR 07/06/17 Ciprofloxacin Hcl* (Ciprofloxacin Hcl*) 500 Mg Tablet, 500 MG PO BID for 5 Days, #10 TAB Prov:BROOKS,BEN V. RECORDS ADMINISTRATOR 07/06/17 Docusate Sodium (Dok) 100 Mg Capsule, 100 MG PO BID, #60 CAP Prov:BROOKS,BEN V. RECORDS ADMINISTRATOR 07/06/17 Famotidine* (Famotidine*) 20 Mg Tablet, 20 MG PO HS, #30 TAB Prov:BROOKS,BEN V. RECORDS ADMINISTRATOR 07/06/17 Hydrocodone Bit-Acetaminophen (Hydrocodone Bit-APAP) 5-325MG Tablet, 1 TAB PO Q4H PRN for PAIN, #14 TAB Prov:BROOKSBEN V. RECORDS ADMINISTRATOR 07/06/17 Medications Current Medications Nitroglycerin (Nitroglycerin (Sl Tab) 0.4 Mg) 1 tab Q5M UP TO 3 DOSES PRN SL .CHEST PAIN Last administered on 11/06/18at 13:35; Admin Dose 1 TAB; Start 11/06/18 at 13:00 IV Flush (NS 3 ml) 3 ml PER PROTOCOL IV ; Start 11/06/18 at 14:00 Acetaminophen (Tylenol Tab) 650 mg Q6H PRN PO .PAIN 1-3 OR TEMP; Start 11/06/18 at 14:00 Acetaminophen/ Hydrocodone Bitart ([place] (5/325)) 1 tab Q6H PRN PO .PAIN 4-6; Start 11/06/18 at 14:00 Morphine Sulfate (morphine) 2 mg Q4H PRN IV .PAIN 7-10 Last administered on 11/07/18at 03:00; Admin Dose 2 MG; Start 11/06/18 at 14:00 Diagnostic Test (Pha) (Accu-Chek) 1 ea 02 XX ; Start 11/07/18 at 02:00 Insulin Aspart (Novolog Insulin Pen) NOVOLOG *MILD* ALGORITHM WITH MEALS BEDTIME SC Last administered on 11/07/18at 20:32; Admin Dose 1 UNIT; Start 11/06/18 at 17:35 Miscellaneous Information 1 ea NOTE XX ; Start 11/06/18 at 14:30 Glucose (Glutose) 15 gm Q15M PRN PO DECREASED GLUCOSE; Start 11/06/18 at 14:30 Glucose (Glutose) 22.5 gm Q15M PRN PO DECREASED GLUCOSE; Start 11/06/18 at 14:30 Dextrose (D50w Syringe) 25 ml Q15M PRN IV DECREASED GLUCOSE; Start 11/06/18 at 14:30 Dextrose (D50w Syringe) 50 ml Q15M PRN IV DECREASED GLUCOSE; Start 11/06/18 at 14:30 Glucagon (Glucagen) 1 mg Q15M PRN IM DECREASED GLUCOSE; Start 11/06/18 at 14:30 Glucose (Glutose) 15 gm Q15M PRN BUCCAL DECREASED GLUCOSE; Start 11/06/18 at 14:30 Aspirin (Halfprin) 81 mg DAILY PO Last administered on 11/07/18at 08:53; Admin Dose 81 MG; Start 11/07/18 at 09:00 Ticagrelor (Brilinta) 90 mg BID PO Last administered on 11/07/18at 20:33; Admin Dose 90 MG; Start 11/06/18 at 21:00 Acetaminophen (Tylenol Tab) 650 mg Q4H PRN PO PAIN; Start 11/06/18 at 15:30 Oxycodone/ Acetaminophen (Percocet (5/ 325)) 1 tab Q4H PRN PO PAIN; Start 11/06/18 at 15:30 Oxycodone/ Acetaminophen (Percocet (5/ 325)) 2 tab Q4H PRN PO PAIN; Start 11/06/18 at 15:30 Morphine Sulfate (morphine) 1 mg Q1H PRN IV PAIN LEVEL 6-10; Start 11/06/18 at 15:30 Ondansetron HCl (Zofran Inj) 4 mg Q4H PRN IV NAUSEA AND/OR VOMITING; Start 11/06/18 at 15:30 Docusate Sodium (Colace) 100 mg BID PO Last administered on 11/07/18 20:34; Admin Dose 100 MG; Start 11/06/18 at 21:00 Carvedilol (Coreg) 3.125 mg BID PO Last administered on 11/07/18 20:34; Admin Dose 3.125 MG; Start 11/06/18 at 21:00 Atorvastatin Calcium (Lipitor) 80 mg DAILY@21 PO Last administered on 11/07/18 20:33; Admin Dose 80 MG; Start 11/06/18 at 21:00 Amiodarone HCl 900 mg/Dextrose 500 ml @ 0 mls/hr Q0M IV Last administered on 11/07/18 10:50; Admin Dose 33.3 MLS/HR; Start 11/07/18 at 10:30; Stop 11/08/18 at 10:29 Insulin Glargine (Lantus) 25 units DAILY@2000 SC Last administered on 11/07/18 20:33; Admin Dose 25 UNITS; Start 11/07/18 at 20:00 Melatonin (Melatonin) 5 mg HS PRN PO INSOMNIA Last administered on 11/07/18 20:56; Admin Dose 5 MG; Start 11/07/18 at 20:30 Assessment/Plan Hospital Course (Demo Recall) Acute anterior ST elevation myocardial infarction Severe coronary artery disease include 100% occlusion of the LAD as well as significant obtuse marginal and ramus intermediate disease Status post emergent PCI of the left anterior descending artery Diabetes Most likely dyslipidemia History of pancreatitis History of anxiety Abnormal EKG due to above Paroxysmal atrial fibrillation rapid ventricular response Ischemic cardiomyopathy Recommendations: Aspirin and Brilinta needs to be continued. Importance of compliant with the medication was emphasized to the patient. Prescription has been left for the patient with the coupons so he can have it filled as soon as possible. I have even spoken to the pharmacy and even though initially had said he was not approved to have approved to give him 30-day for free with use of the coupons. Diabetic management as per internal medicine Statin has been started Continue with the Coreg. We will keep the patient amiodarone drip now that he is going to atrial fibrillation. Currently back in sinus still plan for PCI of ramus intermediate and possibly obtuse marginal tomorrow a.m. [facility] was discussed with the patient in detail. Risks include but limited to risk of infection vascular convocation bleeding ideation CT stroke arrhythmia renal failure etc. discussed with the patient. Patient consented to procedure. More than 32 minutes critical care time was spent management treatment is critically ill patient excluding any procedures Thank you for this referral. We will continue to follow along with you JEWEL HERNANDEZ MD [facility] JEWEL HERNANDEZ MD Nov 08, 2018 07:23
[2018-11-08] MEDS ORDERED: ASPIRIN 81 MG TAB ONE (07:27)
[2018-11-08] MEDS ORDERED: TICAGRELOR 90 MG TABLET ONE (07:27)
[2018-11-08] MEDS: INSULIN ASPART [NOVOLOG] 3 ML PEN SC SCH ×4 (07:35→20:31)
[2018-11-08] MEDS ORDERED: BIVALIRUDIN 250MG /NS 50 ML 100 ML IVPB ONE (08:27)
--- NOTE | 2018-11-08 08:37 | OPR ---
Date/Time of Note Date/Time of Note DATE: 11/08/18 TIME: 08:32 Operative Report Procedure Date: Nov 08, 2018 Preoperative Diagnosis [place] , CAD Postoperative Diagnosis same Operation/Procedure Performed PCI RI Surgeon see signature line Linotype Machinist MAYI Anesthesia Type: moderate sedation Estimated Blood Loss: minimal Transfusion none Specimen none Grafts/Implants none Complications none Procedure Description Grinding Machine Operator: Jewel Coats MD Indication: 47 year old with anterior STEMI PCI LAD 2 days ago who was also noted to have significant RI disease and FIRE OFFICIAL small OM. Procure performed: #1 Right femoral angiogram AND Closure using a perclose device 2. Selective left coronary angiography 3. Successful PTCA and stenting of ramus intermediate using a 2.25 x 38 mm Synergy drug-eluting stent 4. Moderate sedation for more than 60 minutes Findings: 1. Left main: is normal and trirfurcates to LAD & LCX. And ramus intermediate 2. LAD: Proximal/mid stent is widely patent 3. Left circumflex artery: is condominant. it has chronic total occlusion of the obtuse marginal 1 which appeared to be very small. Attempt to crossing this lesion was unsuccessful Procedure in detail: Written informed consent with obtained after risks benefits and alternatives discussed with the patient in detail. risks including but not limited to risk of infection vascular complications, bleeding complications, TN stroke arrhythmia renal failure at even were discussed with the patient in detail. Patient was brought into the cardiac label pinker and placed in supine position. Right and left groin area was prepped and draped in regular sterile fashion and then he was in anesthetized using 1% lidocaine. Right femoral artery was cannulated and using modified seldinger technique a 6 [place] sheath was placed in the femoral artery. Femoral angiogram was performed At this time we decided to perform PCI of the ramus intermediate artery. A total of 4 guiding catheter was advanced to engage the left main coronary artery geographic view was obtained. BMW wire was used and advanced across the lesion and placed distal to the lesion into the ramus intermediate. I used a 2 x 15 mm balloon which was placed across the lesion and predilated the vessel. Then I used a 2.25 x 38 mm Synergy drug-eluting stent which was placed across the lesion and deployed at 12 Johnnie. Another BMW was used and crossed into the LAD and proximal portion of the LAD stent was postdilated not to jeopardize this area finally a [] noncompliant balloon was used and postdilated the stent and up to 18 Johnnie. Final angiographic view was obtained which showed BYRON-3 flow no evidence of dissection and no significant residual stenosis at the site of the stent. Multiple wires were used to try to cross into the obtuse marginal area. We could not cross across it given the fact that it was appeared to be chronic total occlusion and very small decided not to pursue this any further perclose was successfully deployed. Patient tolerated the procedure well with no complication. Patient is to be transferred to recovery room in stable condition. contrast used: 105 cc Visipaque Conclusions: Successful PTCA stenting of the intermediate artery from 80 to 90% stenosis to no significant residual stenosis using a 2.25 x 38 mm Synergy drug- eluting stent. Recommendations: Aggressive medical therapy. aspirin indefinitely dual antiplatlet therapy with aspirin and Brilinta . JEWEL COATS MD [facility] JEWEL COATS MD Nov 08, 2018 08:37
[2018-11-08] MEDS ORDERED: SOD CHLORIDE 0.9% 1,000 ML IV SCH (08:45)
[2018-11-08] MEDS: TICAGRELOR 90 MG TABLET PO SCH ×2 (09:00→20:31)
[2018-11-08] MEDS: ASPIRIN (EC) 81 MG TAB PO SCH (09:00)
[2018-11-08] MEDS: DOCUSATE SODIUM 100 MG CAP PO SCH ×2 (09:45→20:14)
--- NOTE | 2018-11-08 11:21 | PN ---
Date/Time of Note Date/Time of Note DATE: 11/08/18 TIME: : Assessment/Plan VTE Prophylaxis Risk score (from Ns)>0 risk: 3 SCD applied (from Ns): Yes Pharmacological prophylaxis: NA/contraindicated Pharm contraindication: low risk/ambulating Lines/Catheters IV Catheter Type (from [facility]): Peripheral IV Urinary Cath still in place: No Assessment/Plan Assessment/Plan 47 yo man newly diagnosed diabetes presents with acute STEMI #ST elevation [place] - s/p cardiac cath 11/06 and 11/07 with PCI to LAD - Dual antiplatelet per cardiology, meds will be delivered to bedside. - Dr. Coats following. #Diabetes - Blood sugar well controlled with lantus 25, but patient wants to be on oral meds only - Will hold lantus and try metformin BID. #A fib - Very brief episode the morning after admission. - Likely was related to CAD. Will plan to hold off on anticoagulation. #Mild elevated AST and ALT -Likely due to ACS DVT: SCDs GI: None Dispo: Transfer to [facility], discharge in AM. 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 Exam/Review of Systems Exam Vitals Vital Signs Date Temp Pulse Resp B/P (MAP) Pulse Ox O2 O2 Flow FiO2 Time Delivery Rate 11/08/18 79 23 101/64 98 Room Air 06:00 (76) 11/08/18 98.7 04:00 11/06/18 2.0 13:45 Intake and Output 11/07/18 11/07/18 11/08/18 1515:00 23:00 07:00 IntakeIntake Total 560.0 ml 756.9 ml 316.9 ml OutputOutput Total 800 ml 775 ml 1150 ml BalanceBalance -240.0 ml -18.1 ml -833.1 ml Exam General: Patient is laying in bed and answers questions appropriately Mentation: Patient is alert and oriented 4 Head: Normocephalic atraumatic Eyes: EOMI, pupils reactive to light Neck: Supple, nontender, midline Respiratory: Clear to auscultation bilaterally Cardiovascular: regular rate, no obvious murmurs Gastrointestinal: non-tender to palpation, bowel sounds heard. Ext: R femoral sheath site well healed, no hematoma. Results Results 24hrs Laboratory Tests Test 11/07/18 12:33 11/07/18 17:27 11/07/18 20:21 11/08/18 01:24 Bedside Glucose 288 H 224 H 198 155 Test 11/08/18 05:00 11/08/18 10:34 White Blood Count 11.4 H Red Blood Count 4.34 L Hemoglobin 13.6 L Hematocrit 39.3 L Mean Corpuscular 90.6 Volume Mean Corpuscular 31.3 Hemoglobin Mean Corpuscular 34.6 Hemoglobin Concent Red Cell 12.2 Distribution Width Platelet Count 217 Mean Platelet Volume 11.5 H Immature 0.400 Granulocytes % Neutrophils % 67.9 Lymphocytes % 13.1 L Monocytes % 15.3 H Eosinophils % 2.7 Basophils % 0.6 Nucleated Red Blood 0.0 Cells % Immature 0.040 H Granulocytes # Neutrophils # 7.8 H Lymphocytes # 1.5 Monocytes # 1.7 H Eosinophils # 0.3 Basophils # 0.1 Nucleated Red Blood 0.0 Cells # Sodium Level 137 Potassium Level 4.3 Chloride Level 105 Carbon Dioxide Level 29 Anion Gap 3 L Blood Urea Nitrogen 11 Creatinine 0.87 Est Glomerular > 60 Filtrat Rate mL/min Glucose Level 174 Calcium Level 8.6 Phosphorus Level 4.4 Magnesium Level 1.9 Bedside Glucose 149 Medications Medication Current Medications Nitroglycerin (Nitroglycerin (Sl Tab) 0.4 Mg) 1 tab Q5M UP TO 3 DOSES PRN SL .CHEST PAIN Last administered on 11/06/18at 13:35; Admin Dose 1 TAB; Start 11/06/18 at 13:00 IV Flush (NS 3 ml) 3 ml PER PROTOCOL IV ; Start 11/06/18 at 14:00 Acetaminophen (Tylenol Tab) 650 mg Q6H PRN PO .PAIN 1-3 OR TEMP; Start 11/06/18 at 14:00 Acetaminophen/ Hydrocodone Bitart ([place] (5/325)) 1 tab Q6H PRN PO .PAIN 4-6; Start 11/06/18 at 14:00 Morphine Sulfate (morphine) 2 mg Q4H PRN IV .PAIN 7-10 Last administered on 11/07/18at 03:00; Admin Dose 2 MG; Start 11/06/18 at 14:00 Diagnostic Test (Pha) (Accu-Chek) 1 ea 02 XX ; Start 11/07/18 at 02:00 Insulin Aspart (Novolog Insulin Pen) NOVOLOG *MILD* ALGORITHM WITH MEALS BEDTIME SC Last administered on 11/08/18at 10:39; Admin Dose 1 UNIT; Start 11/06/18 at 17:35 Miscellaneous Information 1 ea NOTE XX ; Start 11/06/18 at 14:30 Glucose (Glutose) 15 gm Q15M PRN PO DECREASED GLUCOSE; Start 11/06/18 at 14:30 Glucose (Glutose) 22.5 gm Q15M PRN PO DECREASED GLUCOSE; Start 11/06/18 at 14:30 Dextrose (D50w Syringe) 25 ml Q15M PRN IV DECREASED GLUCOSE; Start 11/06/18 at 14:30 Dextrose (D50w Syringe) 50 ml Q15M PRN IV DECREASED GLUCOSE; Start 11/06/18 at 14:30 Glucagon (Glucagen) 1 mg Q15M PRN IM DECREASED GLUCOSE; Start 11/06/18 at 14:30 Glucose (Glutose) 15 gm Q15M PRN BUCCAL DECREASED GLUCOSE; Start 11/06/18 at 14: 30 Aspirin (Halfprin) 81 mg DAILY PO Last administered on 11/07/18at 08:53; Admin Dose 81 MG; Start 11/07/18 at 09:00 Ticagrelor (Brilinta) 90 mg BID PO Last administered on 11/07/18at 20:33; Admin Dose 90 MG; Start 11/06/18 at 21:00 Acetaminophen (Tylenol Tab) 650 mg Q4H PRN PO PAIN; Start 11/06/18 at 15:30 Oxycodone/ Acetaminophen (Percocet (5/ 325)) 1 tab Q4H PRN PO PAIN; Start 11/06/18 at 15:30 Oxycodone/ Acetaminophen (Percocet (5/ 325)) 2 tab Q4H PRN PO PAIN; Start 11/06/18 at 15:30 Morphine Sulfate (morphine) 1 mg Q1H PRN IV PAIN LEVEL 6-10; Start 11/06/18 at 15:30 Ondansetron HCl (Zofran Inj) 4 mg Q4H PRN IV NAUSEA AND/OR VOMITING; Start 11/06/18 at 15:30 Docusate Sodium (Colace) 100 mg BID PO Last administered on 11/08/18 09:45; Admin Dose 100 MG; Start 11/06/18 at 21:00 Carvedilol (Coreg) 3.125 mg BID PO Last administered on 11/08/18 09:46; Admin Dose 3.125 MG; Start 11/06/18 at 21:00 Atorvastatin Calcium (Lipitor) 80 mg DAILY@21 PO Last administered on 11/07/18 20:33; Admin Dose 80 MG; Start 11/06/18 at 21:00 Insulin Glargine (Lantus) 25 units DAILY@2000 SC Last administered on 11/07/18 20:33; Admin Dose 25 UNITS; Start 11/07/18 at 20:00 Melatonin (Melatonin) 5 mg HS PRN PO INSOMNIA Last administered on 11/07/18 20:56; Admin Dose 5 MG; Start 11/07/18 at 20:30 ELOISE TUCKER MD Nov 08, 2018 11:21
[2018-11-08] MEDS: metFORMIN 500 MG TAB PO SCH ×2 (11:30→17:35)
[2018-11-08] MEDS: ONDANSETRON 4 MG INJ IV PRN (12:37)
--- NOTE | 2018-11-08 16:51 | RADRPT ---
Vent Rate: 69 bpm RR Interval: 868 msec [place] Interval: 182 msec QRS Duration: 84 msec QT Interval: 470 msec QTC Interval: 504 msec P-R-T [place]: 25 - -9 - 117 degrees Sinus rhythm...normal P axis, V-rate 50- 99 Probable anteroseptal infarct, recent...Q, ST>0.15mV, T neg, V1-V2 Lateral wall also involved...lat Q or ST-T abnormalities Prolonged QT interval...QTc >500mS Electronically Signed By: Alban Woodall
--- NOTE | 2018-11-08 16:54 | RADRPT ---
Vent Rate: 84 bpm RR Interval: 716 msec SC Interval: 179 msec QRS Duration: 80 msec QT Interval: 349 msec QTC Interval: 412 msec P-R-T [place]: 18 - -5 - 119 degrees Sinus rhythm...normal P axis, V-rate 50- 99 Probable anteroseptal infarct, recent...Q, ST>0.15mV, T neg, V1-V2 Electronically Signed By: Alban Woodall
[2018-11-08] MEDS ORDERED: AMIODARONE 900 MG in DEXTROSE 5% 482 ML IV SCH (18:00)
[2018-11-08] MEDS ORDERED: AMIODARONE 150MG/D5W BOLUS 100 ML IV ONE (18:00)
[2018-11-08] MEDS: ATORVASTATIN 80 MG TAB PO SCH (20:14)
[2018-11-08] MEDS: MELATONIN 5 MG TABLET PO PRN (23:58)
[2018-11-09] VITALS (16 sets, daily range): BP systolic 98–133; BP diastolic 67–83; PULSE 75–97; RESP 16–20
[2018-11-09] MEDS: ACCU-CHEK XX SCH (03:40)
[2018-11-09] MEDS: metFORMIN 500 MG TAB PO SCH (08:28)
[2018-11-09] MEDS: ASPIRIN (EC) 81 MG TAB PO SCH (08:28)
[2018-11-09] MEDS: INSULIN ASPART [NOVOLOG] 3 ML PEN SC SCH ×4 (08:53→21:00)
[2018-11-09] MEDS: DOCUSATE SODIUM 100 MG CAP PO SCH ×2 (08:55→13:20)
[2018-11-09] MEDS: TICAGRELOR 90 MG TABLET PO SCH ×2 (09:00→22:28)
--- NOTE | 2018-11-09 13:06 | RADRPT ---
Vent Rate: 138 bpm RR Interval: 474 msec [place] Interval: [id number] msec QRS Duration: 88 msec QT Interval: 298 msec QTC Interval: 433 msec P-R-T [place]: [id number] - -23 - 101 degrees Atrial fibrillation Anterior infarct, acute (LAD)...ST >0.25mV, V2-V5 Electronically Signed By: Alban Woodall
--- NOTE | 2018-11-09 15:12 | PN ---
Date/Time of Note Date/Time of Note DATE: 11/09/18 TIME: 15:09 Assessment/Plan VTE Prophylaxis Risk score (from Ns)>0 risk: 7 SCD applied (from Ns): Yes Pharmacological prophylaxis: heparin Lines/Catheters IV Catheter Type (from Nrs): Peripheral IV Urinary Cath still in place: No Assessment/Plan Hospital Course 47 yo male presented with STEMI now s/p staged PCI with reduced EF and newly diagnosed DMII STEMI: - Continue DAPT, statin, JULIA, BB - Management per cardiology A Fib: - Amiodarone infusion DMII: - Started on metfomrin. A1C is 8.5. Will discharge him on metfomrin and have him follow up with PMD. Extensively counseled on dietary modifications Likely dc tomorrow Result Diagram: 11/09/1852111/09/18521 Results 24hrs Laboratory Tests Test 11/08/18 18:29 11/08/18 20:08 11/09/18 03:38 11/09/18 05:22 Bedside Glucose 217 240 H 195 White Blood Count 13.5 H Red Blood Count 4.28 L Hemoglobin 13.3 L Hematocrit 38.3 L Mean Corpuscular 89.5 Volume Mean Corpuscular 31.1 Hemoglobin Mean Corpuscular 34.7 Hemoglobin Concent Red Cell 12.1 Distribution Width Platelet Count 221 Mean Platelet Volume 11.7 H Immature 0.400 Granulocytes % Neutrophils % 73.2 Lymphocytes % 9.9 L Monocytes % 13.1 H Eosinophils % 2.8 Basophils % 0.6 Nucleated Red Blood 0.0 Cells % Immature 0.050 H Granulocytes # Neutrophils # 9.9 H Lymphocytes # 1.3 Monocytes # 1.8 H Eosinophils # 0.4 Basophils # 0.1 Nucleated Red Blood 0.0 Cells # Sodium Level 139 Potassium Level 4.4 Chloride Level 104 Carbon Dioxide Level 28 Anion Gap 7 Blood Urea Nitrogen 14 Creatinine 0.79 Est Glomerular > 60 Filtrat Rate mL/min Glucose Level 194 Calcium Level 8.5 Magnesium Level 1.8 Total Bilirubin 1.4 H Direct Bilirubin 0.00 Indirect Bilirubin 1.4 H Aspartate Amino 56 H Transf (AST/SGOT) Alanine 56 Aminotransferase (AL T/SGPT) Alkaline Phosphatase 79 Creatine Kinase 172 Creatine Kinase 1.3 Index Creatinine Kinase MB 2.27 (Mass) Troponin I 14.400 *H Total Protein 5.8 L Albumin 3.0 L Globulin 2.80 Albumin/Globulin 1.07 Ratio Test 11/09/18 08:31 11/09/18 12:47 Bedside Glucose 154 250 H Subjective 24 Hr Interval Summary Free Text/Dictation Discussed diet and lifestyle modifications at length No current symptoms Wants to stay until tomorrow as can't get into apartment Exam/Review of Systems Exam Vitals Vital Signs Date Temp Pulse Resp B/P (MAP) Pulse Ox O2 O2 Flow FiO2 Time Delivery Rate 11/09/18 77 13:37 11/09/18 98.3 16 127/75 98 11:25 (92) 11/09/18 Room Air 06:15 11/06/18 2.0 13:45 Intake and Output 11/08/18 11/08/18 11/09/18 1515:00 23:00 07:00 IntakeIntake Total 556.7 ml 1310 ml 120 ml OutputOutput Total 500 ml 1600 ml 200 ml BalanceBalance 56.7 ml -290 ml -80 ml Constitutional: alert, oriented, well developed Psych: no complaints, nl mood/affect Head: normocephalic, atraumatic Eyes: nl conjunctiva, EOMI, nl lids, nl sclera, PERRL ENMT: nl external ears & nose, nl lips & teeth, nl nasal mucosa & septum Neck: supple, non-tender Respiratory: clear to auscultation, normal air movement Cardiovascular: regular rate and rhythm, nl pulses Gastrointestinal: soft, nl liver, spleen, non-tender Musculoskeletal: nl extremities to inspection, nl gait and stance Extremities: normal pulses Neurological: RADIO TALK SHOW HOST II-XII intact, nl mental status, nl speech, nl strength Skin: nl turgor; No rash or lesions Lymph: nl lymph nodes Results Results 24hrs Laboratory Tests Test 11/08/18 18:29 11/08/18 20:08 11/09/18 03:38 11/09/18 05:22 Bedside Glucose 217 240 H 195 White Blood Count 13.5 H Red Blood Count 4.28 L Hemoglobin 13.3 L Hematocrit 38.3 L Mean Corpuscular 89.5 Volume Mean Corpuscular 31.1 Hemoglobin Mean Corpuscular 34.7 Hemoglobin Concent Red Cell 12.1 Distribution Width Platelet Count 221 Mean Platelet Volume 11.7 H Immature 0.400 Granulocytes % Neutrophils % 73.2 Lymphocytes % 9.9 L Monocytes % 13.1 H Eosinophils % 2.8 Basophils % 0.6 Nucleated Red Blood 0.0 Cells % Immature 0.050 H Granulocytes # Neutrophils # 9.9 H Lymphocytes # 1.3 Monocytes # 1.8 H Eosinophils # 0.4 Basophils # 0.1 Nucleated Red Blood 0.0 Cells # Sodium Level 139 Potassium Level 4.4 Chloride Level 104 Carbon Dioxide Level 28 Anion Gap 7 Blood Urea Nitrogen 14 Creatinine 0.79 Est Glomerular > 60 Filtrat Rate mL/min Glucose Level 194 Calcium Level 8.5 Magnesium Level 1.8 Total Bilirubin 1.4 H Direct Bilirubin 0.00 Indirect Bilirubin 1.4 H Aspartate Amino 56 H Transf (AST/SGOT) Alanine 56 Aminotransferase (AL T/SGPT) Alkaline Phosphatase 79 Creatine Kinase 172 Creatine Kinase 1.3 Index Creatinine Kinase MB 2.27 (Mass) Troponin I 14.400 *H Total Protein 5.8 L Albumin 3.0 L Globulin 2.80 Albumin/Globulin 1.07 Ratio Test 11/09/18 08:31 11/09/18 12:47 Bedside Glucose 154 250 H Medications Medication Current Medications Nitroglycerin (Nitroglycerin (Sl Tab) 0.4 Mg) 1 tab Q5M UP TO 3 DOSES PRN SL .CHEST PAIN Last administered on 11/06/18at 13:35; Admin Dose 1 TAB; Start 11/06/18 at 13:00 IV Flush (NS 3 ml) 3 ml PER PROTOCOL IV ; Start 11/06/18 at 14:00 Acetaminophen (Tylenol Tab) 650 mg Q6H PRN PO .PAIN 1-3 OR TEMP; Start 11/06/18 at 14:00 Acetaminophen/ Hydrocodone Bitart ([place] (5/325)) 1 tab Q6H PRN PO .PAIN 4-6; Start 11/06/18 at 14:00 Morphine Sulfate (morphine) 2 mg Q4H PRN IV .PAIN 7-10 Last administered on 11/07/18at 03:00; Admin Dose 2 MG; Start 11/06/18 at 14:00 Diagnostic Test (Pha) (Accu-Chek) 1 ea 02 XX Last administered on 11/09/18at 03:40; Admin Dose 1 EA; Start 11/07/18 at 02:00 Insulin Aspart (Novolog Insulin Pen) NOVOLOG *MILD* ALGORITHM WITH MEALS BEDTIME SC Last administered on 11/09/18at 13:06; Admin Dose 3 UNIT; Start 11/06/18 at 17:35 Miscellaneous Information 1 ea NOTE XX ; Start 11/06/18 at 14:30 Glucose (Glutose) 15 gm Q15M PRN PO DECREASED GLUCOSE; Start 11/06/18 at 14:30 Glucose (Glutose) 22.5 gm Q15M PRN PO DECREASED GLUCOSE; Start 11/06/18 at 14:30 Dextrose (D50w Syringe) 25 ml Q15M PRN IV DECREASED GLUCOSE; Start 11/06/18 at 14:30 Dextrose (D50w Syringe) 50 ml Q15M PRN IV DECREASED GLUCOSE; Start 11/06/18 at 14:30 Glucagon (Glucagen) 1 mg Q15M PRN IM DECREASED GLUCOSE; Start 11/06/18 at 14:30 Glucose (Glutose) 15 gm Q15M PRN BUCCAL DECREASED GLUCOSE; Start 11/06/18 at 14:30 Aspirin (Halfprin) 81 mg DAILY PO Last administered on 11/09/18at 08:28; Admin Dose 81 MG; Start 11/07/18 at 09:00 Ticagrelor (Brilinta) 90 mg BID PO Last administered on 11/09/18at 09:00; Admin Dose 90 MG; Start 11/06/18 at 21:00 Acetaminophen (Tylenol Tab) 650 mg Q4H PRN PO PAIN; Start 11/06/18 at 15:30 Oxycodone/ Acetaminophen (Percocet (5/ 325)) 1 tab Q4H PRN PO PAIN; Start 11/06/18 at 15:30 Oxycodone/ Acetaminophen (Percocet (5/ 325)) 2 tab Q4H PRN PO PAIN; Start 11/06/18 at 15:30 Morphine Sulfate (morphine) 1 mg Q1H PRN IV PAIN LEVEL 6-10; Start 11/06/18 at 15:30 Ondansetron HCl (Zofran Inj) 4 mg Q4H PRN IV NAUSEA AND/OR VOMITING Last administered on 11/08/18at 12:37; Admin Dose 4 MG; Start 11/06/18 at 15:30 Docusate Sodium (Colace) 100 mg BID PO Last administered on 11/09/18at 13:20; Admin Dose 100 MG; Start 11/06/18 at 21:00 Carvedilol (Coreg) 3.125 mg BID PO Last administered on 11/09/18 08:27; Admin Dose 3.125 MG; Start 11/06/18 at 21:00 Atorvastatin Calcium (Lipitor) 80 mg DAILY@21 PO Last administered on 11/08/18 20:14; Admin Dose 80 MG; Start 11/06/18 at 21:00 Insulin Glargine (Lantus) 25 units DAILY@2000 SC Last administered on 11/07/18 20:33; Admin Dose 25 UNITS; Start 11/07/18 at 20:00; Status Hold Melatonin (Melatonin) 5 mg HS PRN PO INSOMNIA Last administered on 11/08/18 23:58; Admin Dose 5 MG; Start 11/07/18 at 20:30 Metformin HCl (Glucophage) 500 mg BID WITH MEALS PO Last administered on 11/09/18 08:28; Admin Dose 500 MG; Start 11/08/18 at 11:30 Amiodarone HCl 900 mg/Dextrose 500 ml @ 16.7 mls/hr Q24H IV Last administered on 11/08/18 18:43; Admin Dose 16.7 MLS/HR; Start 11/08/18 at 18:00 BAYRON MULLEN MD Nov 09, 2018 15:12
[2018-11-09] MEDS ORDERED: metFORMIN 500 MG TAB PO SCH (17:55)
[2018-11-09] MEDS: LISINOPRIL 5 MG TAB PO SCH (18:34)
--- NOTE | 2018-11-09 20:43 | CONS ---
Consult Date/Type/Reason Admit Date/Time Nov 06, 2018 at 13:03 Initial Consult Date 11/06/18 Type of Consultation: cv Requesting Provider: NEELA SHIRLEY MD Date/Time of Note DATE: 11/09/18 TIME: 20:42 Subjective Interventional cardiology follow-up progress note/critical care note Subjective: Discussed with the staff of multiple physicians. Telemetry was reviewed. Patient has remained in normal sinus rhythm amiodarone drip but with short runs of AFIB YESTERDAY He denies any more chest pain or pressure to me denies any groin pain to me. Objective: General: no acute distress HEENT: NC/AT. pupils are equal. round. NECK: NO JVD. no stridor. CV: RRR. systolic murmur; no gallop or rubs. PULM: no wheezing or rhonchi. GI: SOFT, NT, ND, no rebound or guarding Extremity: trace B/L LE edema. no clubbing. neuro: awake and alert, OX3. Psych: calm and pleasant rectal: deferred : normal Vascular: Right femoral no bleeding or hematoma EKG was personally reviewed which shows sinus rhythm with proximal atrial fibrillation anteroseptal infarct age undetermined echo reviewed personally: Normal left ventricular cavity size. Mild concentric left ventricular hypertrophy. Moderate left ventricular systolic dysfunction. Ejection fraction is visually estimated at 35-40 %. Abnormal Diastolic Function. These segments of the LV are hypokinetic mid anterior segment, apical anterior segment, apical lateral segment, anteroseptum mid segment, apex and apical septum. The left atrium is normal in size. Mitral valve leaflets appear mildly thickened. Mild mitral annular calcification. Trace mitral regurgitation. Normal appearance of the aortic valve. No significant aortic stenosis or insufficiency. Normal appearance and function of the tricuspid valve with trace physiologic regurgitation. Normal right ventricular systolic pressure. Objective Vitals Vital Signs Date Temp Pulse Resp B/P (MAP) Pulse Ox O2 O2 Flow FiO2 Time Delivery Rate 11/09/18 75 16:04 11/09/18 97.9 16 108/70 96 15:33 (83) 11/09/18 Room Air 06:15 11/06/18 2.0 13:45 Intake and Output 11/08/18 11/08/18 11/09/18 1515:00 23:00 07:00 IntakeIntake Total 556.7 ml 1310 ml 136.7 ml OutputOutput Total 500 ml 1600 ml 200 ml BalanceBalance 56.7 ml -290 ml -63.3 ml Results/Medications Result Diagram: 11/09/1852111/09/18521 Results 24 hrs Laboratory Tests Test 11/09/18 03:38 11/09/18 05:22 11/09/18 08:31 11/09/18 12:47 Bedside Glucose 195 154 250 H White Blood Count 13.5 H Red Blood Count 4.28 L Hemoglobin 13.3 L Hematocrit 38.3 L Mean Corpuscular 89.5 Volume Mean Corpuscular 31.1 Hemoglobin Mean Corpuscular 34.7 Hemoglobin Concent Red Cell 12.1 Distribution Width Platelet Count 221 Mean Platelet Volume 11.7 H Immature 0.400 Granulocytes % Neutrophils % 73.2 Lymphocytes % 9.9 L Monocytes % 13.1 H Eosinophils % 2.8 Basophils % 0.6 Nucleated Red Blood 0.0 Cells % Immature 0.050 H Granulocytes # Neutrophils # 9.9 H Lymphocytes # 1.3 Monocytes # 1.8 H Eosinophils # 0.4 Basophils # 0.1 Nucleated Red Blood 0.0 Cells # Sodium Level 139 Potassium Level 4.4 Chloride Level 104 Carbon Dioxide Level 28 Anion Gap 7 Blood Urea Nitrogen 14 Creatinine 0.79 Est Glomerular > 60 Filtrat Rate mL/min Glucose Level 194 Calcium Level 8.5 Magnesium Level 1.8 Total Bilirubin 1.4 H Direct Bilirubin 0.00 Indirect Bilirubin 1.4 H Aspartate Amino 56 H Transf (AST/SGOT) Alanine 56 Aminotransferase (AL T/SGPT) Alkaline Phosphatase 79 Creatine Kinase 172 Creatine Kinase 1.3 Index Creatinine Kinase MB 2.27 (Mass) Troponin I 14.400 *H Total Protein 5.8 L Albumin 3.0 L Globulin 2.80 Albumin/Globulin 1.07 Ratio Test 11/09/18 18:06 Bedside Glucose 186 Home Meds Discontinued Scripts Hydrocodone/Acetaminophen ([place] 5-325 Tablet) 1 Each Tablet, 1 TAB PO Q6H PRN for PAIN, #20 TAB Prov:SUZI,AYLA 09/26/17 Ibuprofen* (Motrin*) 600 Mg Tab, 600 MG PO Q6, #30 TAB Prov:SUZI,AYLA 09/26/17 Magnesium Hydroxide* (Milk Of Magnesia*) 400 Mg/5 Ml Oral.susp, 30 ML PO DAILY for CONSTIPATION, #200 ML Prov:BROOKS,BEN V. POTATO PEELER 07/07/17 Docusate Sodium* (Colace*) 100 Mg Capsule, 200 MG PO DAILY, #30 CAP Prov:BROOKS,BEN V. POTATO PEELER 07/07/17 Glipizide* (Glipizide*) 5 Mg Tablet, 5 MG PO AC BREAKFAST, #30 TAB Prov:BROOKS,BEN V. POTATO PEELER 07/07/17 Metformin* (Glucophage*) 500 Mg Tab, 500 MG PO WITH BREAKFAST DINNE, #60 TAB Prov:BROOKS,BEN V. POTATO PEELER 07/07/17 Alprazolam* (Xanax*) 0.5 Mg Tab, 0.5 MG PO Q12 PRN for ANXIETY, #30 TAB Prov:BROOKS,BEN V. POTATO PEELER 07/06/17 Metronidazole* (Metronidazole*) 500 Mg Tablet, 500 MG PO Q8 for 5 Days, #15 TAB Prov:BROOKS,BEN V. POTATO PEELER 07/06/17 Ciprofloxacin Hcl* (Ciprofloxacin Hcl*) 500 Mg Tablet, 500 MG PO BID for 5 Days, #10 TAB Prov:BROOSK,BEN V. POTATO PEELER 07/06/17 Docusate Sodium (Dok) 100 Mg Capsule, 100 MG PO BID, #60 CAP Prov:RBOOKS,BEN V. POTATO PEELER 07/06/17 Famotidine* (Famotidine*) 20 Mg Tablet, 20 MG PO HS, #30 TAB Prov:BROOKS,BEN V. POTATO PEELER 07/06/17 Hydrocodone Bit-Acetaminophen (Hydrocodone Bit-APAP) 5-325MG Tablet, 1 TAB PO Q4H PRN for PAIN, #14 TAB Prov:BROOKS,BEN V. POTATO PEELER 07/06/17 Medications Current Medications Nitroglycerin (Nitroglycerin (Sl Tab) 0.4 Mg) 1 tab Q5M UP TO 3 DOSES PRN SL .CHEST PAIN Last administered on 11/06/18at 13:35; Admin Dose 1 TAB; Start 11/06/18 at 13:00 IV Flush (NS 3 ml) 3 ml PER PROTOCOL IV ; Start 11/06/18 at 14:00 Acetaminophen (Tylenol Tab) 650 mg Q6H PRN PO .PAIN 1-3 OR TEMP; Start 11/06/18 at 14:00 Acetaminophen/ Hydrocodone Bitart ([place] (5/325)) 1 tab Q6H PRN PO .PAIN 4-6; Start 11/06/18 at 14:00 Morphine Sulfate (morphine) 2 mg Q4H PRN IV .PAIN 7-10 Last administered on 11/07/18at 03:00; Admin Dose 2 MG; Start 11/06/18 at 14:00 Insulin Aspart (Novolog Insulin Pen) NOVOLOG *MILD* ALGORITHM WITH MEALS BEDTIME SC Last administered on 11/09/18at 18:13; Admin Dose 2 UNIT; Start 11/06/18 at 17:35 Miscellaneous Information 1 ea NOTE XX ; Start 11/06/18 at 14:30 Glucose (Glutose) 15 gm Q15M PRN PO DECREASED GLUCOSE; Start 11/06/18 at 14:30 Glucose (Glutose) 22.5 gm Q15M PRN PO DECREASED GLUCOSE; Start 11/06/18 at 14:30 Dextrose (D50w Syringe) 25 ml Q15M PRN IV DECREASED GLUCOSE; Start 11/06/18 at 14:30 Dextrose (D50w Syringe) 50 ml Q15M PRN IV DECREASED GLUCOSE; Start 11/06/18 at 14:30 Glucagon (Glucagen) 1 mg Q15M PRN IM DECREASED GLUCOSE; Start 11/06/18 at 14:30 Glucose (Glutose) 15 gm Q15M PRN BUCCAL DECREASED GLUCOSE; Start 11/06/18 at 14:30 Aspirin (Halfprin) 81 mg DAILY PO Last administered on 11/09/18at 08:28; Admin Dose 81 MG; Start 11/07/18 at 09:00 Ticagrelor (Brilinta) 90 mg BID PO Last administered on 11/09/18at 09:00; Admin Dose 90 MG; Start 11/06/18 at 21:00 Acetaminophen (Tylenol Tab) 650 mg Q4H PRN PO PAIN; Start 11/06/18 at 15:30 Oxycodone/ Acetaminophen (Percocet (5/ 325)) 1 tab Q4H PRN PO PAIN; Start 11/06/18 at 15:30 Oxycodone/ Acetaminophen (Percocet (5/ 325)) 2 tab Q4H PRN PO PAIN; Start 11/06/18 at 15:30 Morphine Sulfate (morphine) 1 mg Q1H PRN IV PAIN LEVEL 6-10; Start 11/06/18 at 15:30 Ondansetron HCl (Zofran Inj) 4 mg Q4H PRN IV NAUSEA AND/OR VOMITING Last administered on 11/08/18 12:37; Admin Dose 4 MG; Start 11/06/18 at 15:30 Docusate Sodium (Colace) 100 mg BID PO Last administered on 11/09/18 13:20; Admin Dose 100 MG; Start 11/06/18 at 21:00 Carvedilol (Coreg) 3.125 mg BID PO Last administered on 11/09/18 08:27; Admin Dose 3.125 MG; Start 11/06/18 at 21:00 Atorvastatin Calcium (Lipitor) 80 mg DAILY@21 PO Last administered on 11/08/18 20:14; Admin Dose 80 MG; Start 11/06/18 at 21:00 Insulin Glargine (Lantus) 25 units DAILY@2000 SC Last administered on 11/07/18 20:33; Admin Dose 25 UNITS; Start 11/07/18 at 20:00; Status Hold Melatonin (Melatonin) 5 mg HS PRN PO INSOMNIA Last administered on 11/08/18 23:58; Admin Dose 5 MG; Start 11/07/18 at 20:30 Amiodarone HCl 900 mg/Dextrose 500 ml @ 16.7 mls/hr Q24H IV Last administered on 11/08/18 18:43; Admin Dose 16.7 MLS/HR; Start 11/08/18 at 18:00 Metformin HCl (Glucophage) 1,000 mg BID WITH MEALS PO Last administered on 11/09/18 18:34; Admin Dose 1,000 MG; Start 11/09/18 at 17:55 Lisinopril (Zestril) 5 mg DAILY PO Last administered on 11/09/18 18:34; Admin Dose 5 MG; Start 11/09/18 at 15:30 Magnesium Sulfate 3 gm/Dextrose 106 ml @ 35.333 mls/ hr ONCE ONCE IVPB ; Start 11/09/18 at 22:00; Stop 11/10/18 at 00:59 Assessment/Plan Hospital Course (Demo Recall) Acute anterior ST elevation myocardial infarction Severe coronary artery disease include 100% occlusion of the LAD as well as significant obtuse marginal and ramus intermediate disease Status post emergent PCI of the left anterior descending artery Diabetes Most likely dyslipidemia History of pancreatitis History of anxiety Abnormal EKG due to above Paroxysmal atrial fibrillation rapid ventricular response Ischemic cardiomyopathy Recommendations: Aspirin and Brilinta needs to be continued. Importance of compliant with the medication was emphasized to the patient. Diabetic management as per internal medicine. WILL HOLD Metformin today since had contrast yesterday Statin has been started Continue with the Coreg. We will stop amiodarone drip now and start p o amiodarone dc planning in am Thank you for this referral. We will continue to follow along with you JEWEL HERNANDEZ MD [facility] JEWEL HERNANDEZ MD Nov 09, 2018 20:43
[2018-11-09] MEDS: AMIODARONE 200 MG TAB PO SCH (21:59)
[2018-11-09] MEDS: ATORVASTATIN 80 MG TAB PO SCH (21:59)
[2018-11-09] MEDS ORDERED: MAGNESIUM SULFATE 3 GM in DEXTROSE 5% 100 ML IVPB ONE (22:00)
[2018-11-09] MEDS: ONDANSETRON 4 MG INJ IV PRN (22:11)
[2018-11-09] MEDS ORDERED: AL HYDROX/MG HYDROX/SIMETH 30 ML CUP PO PRN (23:30)
[2018-11-09] MEDS ORDERED: METOCLOPRAMIDE 10 MG INJ IV ONE (23:30)
[2018-11-10] VITALS (12 sets, daily range): BP systolic 99–129; BP diastolic 55–80; PULSE 71–94; RESP 18–19
[2018-11-10] MEDS: MELATONIN 5 MG TABLET PO PRN (00:14)
[2018-11-10] MEDS: INSULIN ASPART [NOVOLOG] 3 ML PEN SC SCH ×4 (08:14→21:22)
[2018-11-10] MEDS: LISINOPRIL 5 MG TAB PO SCH (08:15)
[2018-11-10] MEDS: ASPIRIN (EC) 81 MG TAB PO SCH (08:15)
[2018-11-10] MEDS: AMIODARONE 200 MG TAB PO SCH ×2 (08:15→21:04)
[2018-11-10] MEDS: TICAGRELOR 90 MG TABLET PO SCH ×2 (08:17→21:22)
[2018-11-10] MEDS: DOCUSATE SODIUM 100 MG CAP PO SCH ×2 (08:20→21:00)
--- NOTE | 2018-11-10 09:17 | CONS ---
Consult Date/Type/Reason Admit Date/Time Nov 06, 2018 at 13:03 Initial Consult Date 11/06/18 Type of Consultation: cv Requesting Provider: NEELA SHIRLEY MD Date/Time of Note DATE: 11/10/18 TIME: 09:16 Subjective Interventional cardiology follow-up progress note/critical care note Subjective: Discussed with the staff of multiple physicians. Telemetry was reviewed. Patient has remained in normal sinus rhythm he c/o abd discomfort. constipation/ diarrhea He denies any more chest pain or pressure to me denies any groin pain to me. Objective: General: no acute distress HEENT: NC/AT. pupils are equal. round. NECK: NO JVD. no stridor. CV: RRR. systolic murmur; no gallop or rubs. PULM: no wheezing or rhonchi. GI: SOFT, NT, ND, no rebound or guarding Extremity: trace B/L LE edema. no clubbing. neuro: awake and alert, OX3. Psych: calm and pleasant rectal: deferred : normal Vascular: Right femoral no bleeding or hematoma EKG was personally reviewed which shows sinus rhythm with proximal atrial fibrillation anteroseptal infarct age undetermined echo reviewed personally: Normal left ventricular cavity size. Mild concentric left ventricular hypertrophy. Moderate left ventricular systolic dysfunction. Ejection fraction is visually estimated at 35-40 %. Abnormal Diastolic Function. These segments of the LV are hypokinetic mid anterior segment, apical anterior segment, apical lateral segment, anteroseptum mid segment, apex and apical septum. The left atrium is normal in size. Mitral valve leaflets appear mildly thickened. Mild mitral annular calcification. Trace mitral regurgitation. Normal appearance of the aortic valve. No significant aortic stenosis or insufficiency. Normal appearance and function of the tricuspid valve with trace physiologic regurgitation. Normal right ventricular systolic pressure. Objective Vitals Vital Signs Date Temp Pulse Resp B/P (MAP) Pulse Ox O2 O2 Flow FiO2 Time Delivery Rate 11/10/18 82 08:01 11/10/18 98.2 18 107/63 96 07:47 (78) 11/10/18 Room Air 04:00 11/06/18 2.0 13:45 Intake and Output 11/09/18 11/09/18 11/10/18 1515:00 23:00 07:00 IntakeIntake Total 131.48 ml 1132.54 ml 606 ml OutputOutput Total 800 ml BalanceBalance 131.48 ml 332.54 ml 606 ml Results/Medications Result Diagram: 11/09/1852111/09/18521 Results 24 hrs Laboratory Tests Test 11/09/18 12:47 11/09/18 18:06 11/09/18 22:21 11/10/18 08:12 Bedside Glucose 250 H 186 166 193 Home Meds Discontinued Scripts Hydrocodone/Acetaminophen ([place] 5-325 Tablet) 1 Each Tablet, 1 TAB PO Q6H PRN for PAIN, #20 TAB Prov:SUZI,AYLA 09/26/17 Ibuprofen* (Motrin*) 600 Mg Tab, 600 MG PO Q6, #30 TAB Prov:SUZI,AYLA 09/26/17 Magnesium Hydroxide* (Milk Of Magnesia*) 400 Mg/5 Ml Oral.susp, 30 ML PO DAILY for CONSTIPATION, #200 ML Prov:BROOKS,BEN V. CONSTRUCTION SALES MANAGER 07/07/17 Docusate Sodium* (Colace*) 100 Mg Capsule, 200 MG PO DAILY, #30 CAP Prov:BROOKS,BEN V. CONSTRUCTION SALES MANAGER 07/07/17 Glipizide* (Glipizide*) 5 Mg Tablet, 5 MG PO AC BREAKFAST, #30 TAB Prov:BROOKS,BEN V. CONSTRUCTION SALES MANAGER 07/07/17 Metformin* (Glucophage*) 500 Mg Tab, 500 MG PO WITH BREAKFAST DINNE, #60 TAB Prov:BROOKS,BEN V. CONSTRUCTION SALES MANAGER 07/07/17 Alprazolam* (Xanax*) 0.5 Mg Tab, 0.5 MG PO Q12 PRN for ANXIETY, #30 TAB Prov:BROOKS,BEN V. CONSTRUCTION SALES MANAGER 07/06/17 Metronidazole* (Metronidazole*) 500 Mg Tablet, 500 MG PO Q8 for 5 Days, #15 TAB Prov:BROOKS,BEN V. CONSTRUCTION SALES MANAGER 07/06/17 Ciprofloxacin Hcl* (Ciprofloxacin Hcl*) 500 Mg Tablet, 500 MG PO BID for 5 Days, #10 TAB Prov:BROOKS,BEN V. CONSTRUCTION SALES MANAGER 07/06/17 Docusate Sodium (Dok) 100 Mg Capsule, 100 MG PO BID, #60 CAP Prov:BROOKS,BEN V. CONSTRUCTION SALES MANAGER 07/06/17 Famotidine* (Famotidine*) 20 Mg Tablet, 20 MG PO HS, #30 TAB Prov:BROOKS,BEN V. CONSTRUCTION SALES MANAGER 07/06/17 Hydrocodone Bit-Acetaminophen (Hydrocodone Bit-APAP) 5-325MG Tablet, 1 TAB PO Q4H PRN for PAIN, #14 TAB Prov:BROOKS,BEN V. CONSTRUCTION SALES MANAGER 07/06/17 Medications Current Medications Nitroglycerin (Nitroglycerin (Sl Tab) 0.4 Mg) 1 tab Q5M UP TO 3 DOSES PRN SL .CHEST PAIN Last administered on 11/06/18at 13:35; Admin Dose 1 TAB; Start 11/06/18 at 13:00 IV Flush (NS 3 ml) 3 ml PER PROTOCOL IV ; Start 11/06/18 at 14:00 Acetaminophen (Tylenol Tab) 650 mg Q6H PRN PO .PAIN 1-3 OR TEMP; Start 11/06/18 at 14:00 Acetaminophen/ Hydrocodone Bitart ([place] (5/325)) 1 tab Q6H PRN PO .PAIN 4-6; Start 11/06/18 at 14:00 Morphine Sulfate (morphine) 2 mg Q4H PRN IV .PAIN 7-10 Last administered on 11/07/18at 03:00; Admin Dose 2 MG; Start 11/06/18 at 14:00 Insulin Aspart (Novolog Insulin Pen) NOVOLOG *MILD* ALGORITHM WITH MEALS BEDTIME SC Last administered on 11/10/18at 08:14; Admin Dose 2 UNIT; Start 11/06/18 at 17:35 Miscellaneous Information 1 ea NOTE XX ; Start 11/06/18 at 14:30 Glucose (Glutose) 15 gm Q15M PRN PO DECREASED GLUCOSE; Start 11/06/18 at 14:30 Glucose (Glutose) 22.5 gm Q15M PRN PO DECREASED GLUCOSE; Start 11/06/18 at 14:30 Dextrose (D50w Syringe) 25 ml Q15M PRN IV DECREASED GLUCOSE; Start 11/06/18 at 14:30 Dextrose (D50w Syringe) 50 ml Q15M PRN IV DECREASED GLUCOSE; Start 11/06/18 at 14:30 Glucagon (Glucagen) 1 mg Q15M PRN IM DECREASED GLUCOSE; Start 11/06/18 at 14:30 Glucose (Glutose) 15 gm Q15M PRN BUCCAL DECREASED GLUCOSE; Start 11/06/18 at 14:30 Aspirin (Halfprin) 81 mg DAILY PO Last administered on 11/10/18 08:15; Admin Dose 81 MG; Start 11/07/18 at 09:00 Ticagrelor (Brilinta) 90 mg BID PO Last administered on 11/10/18 08:17; Admin Dose 90 MG; Start 11/06/18 at 21:00 Acetaminophen (Tylenol Tab) 650 mg Q4H PRN PO PAIN; Start 11/06/18 at 15:30 Oxycodone/ Acetaminophen (Percocet (5/ 325)) 1 tab Q4H PRN PO PAIN; Start at 15:30 Oxycodone/ Acetaminophen (Percocet (5/ 325)) 2 tab Q4H PRN PO PAIN; Start 11/06/18 at 15:30 Morphine Sulfate (morphine) 1 mg Q1H PRN IV PAIN LEVEL 6-10; Start 11/06/18 at 15:30 Ondansetron HCl (Zofran Inj) 4 mg Q4H PRN IV NAUSEA AND/OR VOMITING Last administered on 11/09/18 22:11; Admin Dose 4 MG; Start 11/06/18 at 15:30 Docusate Sodium (Colace) 100 mg BID PO Last administered on 11/09/18 13:20; Admin Dose 100 MG; Start 11/06/18 at 21:00 Carvedilol (Coreg) 3.125 mg BID PO Last administered on 11/10/18 08:16; Admin Dose 3.125 MG; Start 11/06/18 at 21:00 Atorvastatin Calcium (Lipitor) 80 mg DAILY@21 PO Last administered on 11/09/18 21:59; Admin Dose 80 MG; Start 11/06/18 at 21:00 Insulin Glargine (Lantus) 25 units DAILY@2000 SC Last administered on 11/07/18 20:33; Admin Dose 25 UNITS; Start 11/07/18 at 20:00; Status Hold Melatonin (Melatonin) 5 mg HS PRN PO INSOMNIA Last administered on 11/10/18 00:14; Admin Dose 5 MG; Start 11/07/18 at 20:30 Metformin HCl (Glucophage) 1,000 mg BID WITH MEALS PO Last administered on 11/09/18 18:34; Admin Dose 1,000 MG; Start 11/09/18 at 17:55; Status Hold Lisinopril (Zestril) 5 mg DAILY PO Last administered on 11/10/18at 08:15; Admin Dose 5 MG; Start 11/09/18 at 15:30 Amiodarone HCl (Cordarone) 200 mg BID PO Last administered on 11/10/18at 08:15; Admin Dose 200 MG; Start 11/09/18 at 21:00 Simethicone (Mylicon) 80 mg Q8 PRN PO DISTENSION/GAS/BLOATING; Start 11/09/18 at 23:30 Al Hydrox/Mg Hydrox/Simethicone (Mag-Al Plus) 30 ml Q6H PRN PO GASTROINTESTINAL UPSET Last administered on 11/10/18at 00:14; Admin Dose 30 ML; Start 11/09/18 at 23:30 Assessment/Plan Hospital Course (Demo Recall) Acute anterior ST elevation myocardial infarction Severe coronary artery disease include 100% occlusion of the LAD as well as significant obtuse marginal and ramus intermediate disease Status post emergent PCI of the left anterior descending artery Diabetes Most likely dyslipidemia History of pancreatitis History of anxiety Abnormal EKG due to above Paroxysmal atrial fibrillation rapid ventricular response Ischemic cardiomyopathy Recommendations: Aspirin and Brilinta needs to be continued. Importance of compliant with the medication was emphasized to the patient. Diabetic management as per internal medicine. WILL HOLD Metformin today since had contrast yesterday Statin has been started Continue with the Coreg. We will stop amiodarone drip now and start p o amiodarone dc planning pt was given my info to call and schedule a follow up appointment Thank you for this referral. We will continue to follow along with you JEWEL HERNANDEZ MD [facility] JEWEL HERNANDEZ MD Nov 10, 2018 09:17
--- NOTE | 2018-11-10 16:17 | PN ---
Date/Time of Note Date/Time of Note DATE: 11/10/18 TIME: 16:16 Assessment/Plan VTE Prophylaxis Risk score (from Nsg)>0 risk: 3 SCD applied (from Nsg): Yes Pharmacological prophylaxis: heparin Lines/Catheters IV Catheter Type (from Nrsg): Saline Lock Urinary Cath still in place: No Assessment/Plan Hospital Course 47 yo male presented with STEMI now s/p staged PCI with reduced EF and newly diagnosed DMII STEMI: - Continue DAPT, statin, JULIA, BB - Management per cardiology A Fib: - Amiodarone DMII: - Started on metfomrin. A1C is 8.5. Will discharge him on metfomrin and have him follow up with PMD. Extensively counseled on dietary modifications Likely dc tomorrow Result Diagram: 11/09/1852111/09/18521 Results 24hrs Laboratory Tests Test 11/09/18 18:06 11/09/18 22:21 11/10/18 08:12 11/10/18 12:19 Bedside Glucose 186 166 193 176 Subjective 24 Hr Interval Summary Free Text/Dictation Had diarrhea overnight, abdominal discomfort Feeling better now Very anxious about being discharged Discussed Dm and lifestyel at length again Exam/Review of Systems Exam Vitals Vital Signs Date Temp Pulse Resp B/P (MAP) Pulse Ox O2 O2 Flow FiO2 Time Delivery Rate 11/10/18 78 16:01 11/10/18 99.1 19 99/58 (72) 96 15:29 11/10/18 Room Air 04:00 11/06/18 2.0 13:45 Intake and Output 11/09/18 11/09/18 11/10/18 1515:00 23:00 07:00 IntakeIntake Total 131.48 ml 1132.54 ml 606 ml OutputOutput Total 800 ml BalanceBalance 131.48 ml 332.54 ml 606 ml Constitutional: alert, oriented, well developed Psych: no complaints, nl mood/affect Head: normocephalic, atraumatic Eyes: nl conjunctiva, EOMI, nl lids, nl sclera, PERRL ENMT: nl external ears & nose, nl lips & teeth, nl nasal mucosa & septum Neck: supple, non-tender Respiratory: clear to auscultation, normal air movement Cardiovascular: regular rate and rhythm, nl pulses Gastrointestinal: soft, nl liver, spleen, non-tender Musculoskeletal: nl extremities to inspection, nl gait and stance Extremities: normal pulses Neurological: COSTUME SHOP MANAGER II-XII intact, nl mental status, nl speech, nl strength Skin: nl turgor; No rash or lesions Lymph: nl lymph nodes Results Results 24hrs Laboratory Tests Test 11/09/18 18:06 11/09/18 22:21 11/10/18 08:12 11/10/18 12:19 Bedside Glucose 186 166 193 176 Medications Medication Current Medications Nitroglycerin (Nitroglycerin (Sl Tab) 0.4 Mg) 1 tab Q5M UP TO 3 DOSES PRN SL .CHEST PAIN Last administered on 11/06/18at 13:35; Admin Dose 1 TAB; Start 11/06/18 at 13:00 IV Flush (NS 3 ml) 3 ml PER PROTOCOL IV ; Start 11/06/18 at 14:00 Acetaminophen (Tylenol Tab) 650 mg Q6H PRN PO .PAIN 1-3 OR TEMP; Start 11/06/18 at 14:00 Acetaminophen/ Hydrocodone Bitart ([place] (5/325)) 1 tab Q6H PRN PO .PAIN 4-6; Start 11/06/18 at 14:00 Morphine Sulfate (morphine) 2 mg Q4H PRN IV .PAIN 7-10 Last administered on 11/07/18at 03:00; Admin Dose 2 MG; Start 11/06/18 at 14:00 Insulin Aspart (Novolog Insulin Pen) NOVOLOG *MILD* ALGORITHM WITH MEALS BEDTIME SC Last administered on 11/10/18at 12:22; Admin Dose 1 UNIT; Start 11/06/18 at 17:35 Miscellaneous Information 1 ea NOTE XX ; Start 11/06/18 at 14:30 Glucose (Glutose) 15 gm Q15M PRN PO DECREASED GLUCOSE; Start 11/06/18 at 14:30 Glucose (Glutose) 22.5 gm Q15M PRN PO DECREASED GLUCOSE; Start 11/06/18 at 14:30 Dextrose (D50w Syringe) 25 ml Q15M PRN IV DECREASED GLUCOSE; Start 11/06/18 at 14:30 Dextrose (D50w Syringe) 50 ml Q15M PRN IV DECREASED GLUCOSE; Start 11/06/18 at 14:30 Glucagon (Glucagen) 1 mg Q15M PRN IM DECREASED GLUCOSE; Start 11/06/18 at 14:30 Glucose (Glutose) 15 gm Q15M PRN BUCCAL DECREASED GLUCOSE; Start 11/06/18 at 14:30 Aspirin (Halfprin) 81 mg DAILY PO Last administered on 11/10/18 08:15; Admin Dose 81 MG; Start 11/07/18 at 09:00 Ticagrelor (Brilinta) 90 mg BID PO Last administered on 11/10/18 08:17; Admin Dose 90 MG; Start 11/06/18 at 21:00 Acetaminophen (Tylenol Tab) 650 mg Q4H PRN PO PAIN; Start 11/06/18 at 15:30 Oxycodone/ Acetaminophen (Percocet (5/ 325)) 1 tab Q4H PRN PO PAIN; Start 11/06/18 at 15:30 Oxycodone/ Acetaminophen (Percocet (5/ 325)) 2 tab Q4H PRN PO PAIN; Start 11/06/18 at 15:30 Morphine Sulfate (morphine) 1 mg Q1H PRN IV PAIN LEVEL 6-10; Start 11/06/18 at 15:30 Ondansetron HCl (Zofran Inj) 4 mg Q4H PRN IV NAUSEA AND/OR VOMITING Last administered on 11/09/18 22:11; Admin Dose 4 MG; Start 11/06/18 at 15:30 Docusate Sodium (Colace) 100 mg BID PO Last administered on 11/09/18 13:20; Admin Dose 100 MG; Start 11/06/18 at 21:00 Carvedilol (Coreg) 3.125 mg BID PO Last administered on 11/10/18 08:16; Admin Dose 3.125 MG; Start 11/06/18 at 21:00 Atorvastatin Calcium (Lipitor) 80 mg DAILY@21 PO Last administered on 11/09/18 21:59; Admin Dose 80 MG; Start 11/06/18 at 21:00 Insulin Glargine (Lantus) 25 units DAILY@2000 SC Last administered on 11/07/18at 20:33; Admin Dose 25 UNITS; Start 11/07/18 at 20:00; Status Hold Melatonin (Melatonin) 5 mg HS PRN PO INSOMNIA Last administered on 11/10/18at 00:14; Admin Dose 5 MG; Start 11/07/18 at 20:30 Metformin HCl (Glucophage) 1,000 mg BID WITH MEALS PO Last administered on 11/09/18 18:34; Admin Dose 1,000 MG; Start 11/09/18 at 17:55; Status Hold Lisinopril (Zestril) 5 mg DAILY PO Last administered on 11/10/18 08:15; Admin Dose 5 MG; Start 11/09/18 at 15:30 Amiodarone HCl (Cordarone) 200 mg BID PO Last administered on 11/10/18 08:15; Admin Dose 200 MG; Start 11/09/18 at 21:00 Simethicone (Mylicon) 80 mg Q8 PRN PO DISTENSION/GAS/BLOATING; Start 11/09/18 at 23:30 Al Hydrox/Mg Hydrox/Simethicone (Mag-Al Plus) 30 ml Q6H PRN PO GASTROINTESTINAL UPSET Last administered on 11/10/18 00:14; Admin Dose 30 ML; Start 11/09/18 at 23:30 BAYRON MULLEN MD Nov 10, 2018 16:17
[2018-11-10] MEDS: ATORVASTATIN 80 MG TAB PO SCH (21:04)
[2018-11-11] VITALS (9 sets, daily range): BP systolic 101–113; BP diastolic 59–62; PULSE 66–79; RESP 19
[2018-11-11] MEDS: MELATONIN 5 MG TABLET PO PRN (00:07)
[2018-11-11] MEDS: INSULIN ASPART [NOVOLOG] 3 ML PEN SC SCH ×3 (07:55→17:21)
[2018-11-11] MEDS: AMIODARONE 200 MG TAB PO SCH (08:23)
[2018-11-11] MEDS: ASPIRIN (EC) 81 MG TAB PO SCH (08:23)
[2018-11-11] MEDS: LISINOPRIL 5 MG TAB PO SCH (08:25)
[2018-11-11] MEDS: TICAGRELOR 90 MG TABLET PO SCH (08:28)
[2018-11-11] MEDS: DOCUSATE SODIUM 100 MG CAP PO SCH (08:29)
[2018-11-11] MEDS ORDERED: METF-849 PO (11:27)
[2018-11-11] MEDS ORDERED: TICA90TA PO (11:27)
[2018-11-11] MEDS ORDERED: ATOR-2 PO (11:27)
[2018-11-11] MEDS ORDERED: GLIP5TAB13 PO (11:27)
[2018-11-11] MEDS ORDERED: CARV3.1260 PO (11:27)
[2018-11-11] MEDS ORDERED: AMIO200T4 PO (11:27)
[2018-11-11] MEDS ORDERED: LISI-313 PO (11:27)
--- NOTE | 2018-11-11 11:29 | PDOCDIS ---
Discharge Instructions DIAGNOSIS Discharge Diagnosis STEMI CAD Diabetes CONDITION [id number] Patient Condition: [id number] Stable FOLLOW UP/APPOINTMENTS Follow-up Plan Take your medications everyday as prescribed See Dr Raza Coats in clinic within the next couple weeks Eat a diet low in sugars and carbohydrates to manage your diabetes You also need to see a primary care provider to manage your blood sugar going f orward Return to the emergency room if you have any concerning symptoms, particularly pain in your chest BAYRON MULLEN MD Nov 11, 2018 11:29
--- NOTE | 2018-11-11 12:00 | DS ---
Date/Time of Note Date/Time of Note DATE: 11/11/18 TIME: 11:57 Discharge Summary Admission/Discharge Info Admit Date/Time Nov 06, 2018 at 13:03 Discharge Date/Time Discharge Diagnosis STEMI CAD Diabetes Patient Condition: Stable Hospital Course 47 yo male presented with STEMI. He underwent emergent coronary angiography by Dr Coats. This revealed 100% LAD occlusion to which PCI was performed with good result. He was treated with brilinta, aspirin, statin, carvedilol and lisinopril. He was found to be diabetic and extensively counseled on diet and lifestyle management. Two days after primary PCI he went back to hemodialysis lab technician for attempted staged PCI of RM1 lesion, however this lesion was unable to be crossed so no further stents were placed. TTE showed EF of about 35% with numerous RWMA in LAD distribution. He was discharged to further care as outpatinet and encouraged to follow up with Dr Coats. Home Meds Discontinued Scripts Hydrocodone/Acetaminophen ([place] 5-325 Tablet) 1 Each Tablet, 1 TAB PO Q6H PRN for PAIN, #20 TAB Prov:SUZI,AYLA 09/26/17 Ibuprofen* (Motrin*) 600 Mg Tab, 600 MG PO Q6, #30 TAB Prov:SUZI,AYLA 09/26/17 Magnesium Hydroxide* (Milk Of Magnesia*) 400 Mg/5 Ml Oral.susp, 30 ML PO DAILY for CONSTIPATION, #200 ML Prov:BROOKS,BEN V. OVERWEAVER 07/07/17 Docusate Sodium* (Colace*) 100 Mg Capsule, 200 MG PO DAILY, #30 CAP Prov:BROOKS,BEN V. OVERWEAVER 07/07/17 Glipizide* (Glipizide*) 5 Mg Tablet, 5 MG PO AC BREAKFAST, #30 TAB Prov:BROOKS,BEN V. OVERWEAVER 07/07/17 Metformin* (Glucophage*) 500 Mg Tab, 500 MG PO WITH BREAKFAST DINNE, #60 TAB Prov:BROOKS,BEN V. OVERWEAVER 07/07/17 Alprazolam* (Xanax*) 0.5 Mg Tab, 0.5 MG PO Q12 PRN for ANXIETY, #30 TAB Prov:BROOKS,BEN V. OVERWEAVER 07/06/17 Metronidazole* (Metronidazole*) 500 Mg Tablet, 500 MG PO Q8 for 5 Days, #15 TAB Prov:BROOKS,BEN V. OVERWEAVER 07/06/17 Ciprofloxacin Hcl* (Ciprofloxacin Hcl*) 500 Mg Tablet, 500 MG PO BID for 5 Days, #10 TAB Prov:BROOKS,BEN V. OVERWEAVER 07/06/17 Docusate Sodium (Dok) 100 Mg Capsule, 100 MG PO BID, #60 CAP Prov:BROOKS,BEN V. OVERWEAVER 07/06/17 Famotidine* (Famotidine*) 20 Mg Tablet, 20 MG PO HS, #30 TAB Prov:BROOKS,BEN V. OVERWEAVER 07/06/17 Hydrocodone Bit-Acetaminophen (Hydrocodone Bit-APAP) 5-325MG Tablet, 1 TAB PO Q4H PRN for PAIN, #14 TAB Prov:BROOKS,BEN V. OVERWEAVER 07/06/17 Follow-up Plan Take your medications everyday as prescribed See Dr Raza Coats in clinic within the next couple weeks Eat a diet low in sugars and carbohydrates to manage your diabetes You also need to see a primary care provider to manage your blood sugar going forward Return to the emergency room if you have any concerning symptoms, particularly pain in your chest Primary Care Provider Care Physician No Primary Pending Labs Laboratory Tests Test 11/10/18 12:19 11/10/18 17:07 11/10/18 21:10 11/11/18 02:20 Bedside 176 173 192 149 Glucose mg/dL (70-220) mg/dL (70-220) mg/dL (70-220) mg/dL (70-220) Test 11/11/18 06:10 11/11/18 08:13 11/11/18 11:34 White Blood 13.4 Count 10^3/ul (4.8-10 .8) Red Blood 3.99 Count 10^6/ul (4.70-6 .10) Hemoglobin 12.2 g/dl (14.0-18.0 ) Hematocrit 35.7 % (42.0-52.0) Mean 89.5 Corpuscular fl (82.0-101.0) Volume Mean 30.6 Corpuscular pg (29.0-33.0) Hemoglobin Mean 34.2 Corpuscular g/dl (32.0-37.0 Hemoglobin Conc ) ent Red Cell 12.3 Distribution % (11.5-14.5) Width Platelet Count 261 10^3/UL (140-41 5) Mean Platelet 11.7 Volume fl (7.4-10.4) Immature 0.700 Granulocytes % % (0.001-0.429) Neutrophils % 70.7 % (39.0-77.0) Lymphocytes % 10.2 % (15.0-51.0) Monocytes % 14.6 % (0.0-11.0) Eosinophils % 3.3 % (0.0-7.0) Basophils % 0.5 % (0.0-2.0) Nucleated Red 0.0 Blood Cells % /100WBC (0.0-0. 0) Immature 0.090 Granulocytes # 10^3/ul (0.0-0. 031) Neutrophils # 9.5 10^3/ul (1.6-7. 5) Lymphocytes # 1.4 10^3/ul (0.8-2. 9) Monocytes # 2.0 10^3/ul (0.3-0. 9) Eosinophils # 0.4 10^3/ul (0.0-0. 5) Basophils # 0.1 10^3/ul (0.0-0. 1) Nucleated Red 0.0 Blood Cells # 10^3/ul (0.0-0. 0) Sodium Level 136 mmol/L (135-144 ) Potassium 4.3 Level mmol/L (3.5-5.1 ) Chloride Level 102 mmol/L (97-110) Carbon Dioxide 27 Level mmol/L (21-31) Anion Gap 7 (5-13) Blood Urea 18 mg/dl (7-20) Nitrogen Creatinine 1.00 mg/dl (0.61-1.2 4) Est Glomerular > 60 Filtrat mL/min (>60) Rate mL/min Glucose Level 119 mg/dl (70-220) Calcium Level 7.8 mg/dl (8.4-10.2 ) Bedside 134 239 Glucose mg/dL (70-220) mg/dL (70-220) BAYRON MULLEN MD Nov 11, 2018 12:00
--- NOTE | 2018-11-11 15:20 | CONS ---
Consult Date/Type/Reason Admit Date/Time Nov 06, 2018 at 13:03 Initial Consult Date 11/06/18 Type of Consultation: cv Requesting Provider: NEELA SHIRLEY MD Date/Time of Note DATE: 11/11/18 TIME: 15:19 Subjective Interventional cardiology follow-up progress note/critical care note Subjective: Discussed with the staff of multiple physicians. Telemetry was reviewed. Patient has remained in normal sinus rhythm he c/o abd discomfort. constipation/ diarrhea He denies any more chest pain or pressure to me denies any groin pain to me. he wants to go home d/w physicians Objective: General: no acute distress HEENT: NC/AT. pupils are equal. round. NECK: NO JVD. no stridor. CV: RRR. systolic murmur; no gallop or rubs. PULM: no wheezing or rhonchi. GI: SOFT, NT, ND, no rebound or guarding Extremity: trace B/L LE edema. no clubbing. neuro: awake and alert, OX3. Psych: calm and pleasant rectal: deferred : normal Vascular: Right femoral no bleeding or hematoma EKG was personally reviewed which shows sinus rhythm with proximal atrial fibril lation anteroseptal infarct age undetermined echo reviewed personally: Normal left ventricular cavity size. Mild concentric left ventricular hypertrophy. Moderate left ventricular systolic dysfunction. Ejection fraction is visually estimated at 35-40 %. Abnormal Diastolic Function. These segments of the LV are hypokinetic mid anterior segment, apical anterior segment, apical lateral segment, anteroseptum mid segment, apex and apical septum. The left atrium is normal in size. Mitral valve leaflets appear mildly thickened. Mild mitral annular calcification. Trace mitral regurgitation. Normal appearance of the aortic valve. No significant aortic stenosis or insufficiency. Normal appearance and function of the tricuspid valve with trace physiologic regurgitation. Normal right ventricular systolic pressure. Objective Vitals Vital Signs Date Temp Pulse Resp B/P (MAP) Pulse Ox O2 O2 Flow FiO2 Time Delivery Rate 11/11/18 98.1 79 19 113/62 96 14:59 (79) 11/10/18 Room Air 04:00 Intake and Output 11/10/18 11/10/18 11/11/18 1515:00 23:00 07:00 IntakeIntake Total 800 ml 700 ml OutputOutput Total 700 ml BalanceBalance 800 ml 0 ml Results/Medications Result Diagram: 11/11/18 0610 11/11/18 0610 Results 24 hrs Laboratory Tests Test 11/10/18 17:07 11/10/18 21:10 11/11/18 02:20 11/11/18 06:10 Bedside Glucose 173 192 149 White Blood Count 13.4 H Red Blood Count 3.99 L Hemoglobin 12.2 L Hematocrit 35.7 L Mean Corpuscular 89.5 Volume Mean Corpuscular 30.6 Hemoglobin Mean Corpuscular 34.2 Hemoglobin Concent Red Cell 12.3 Distribution Width Platelet Count 261 Mean Platelet Volume 11.7 H Immature 0.700 H Granulocytes % Neutrophils % 70.7 Lymphocytes % 10.2 L Monocytes % 14.6 H Eosinophils % 3.3 Basophils % 0.5 Nucleated Red Blood 0.0 Cells % Immature 0.090 H Granulocytes # Neutrophils # 9.5 H Lymphocytes # 1.4 Monocytes # 2.0 H Eosinophils # 0.4 Basophils # 0.1 Nucleated Red Blood 0.0 Cells # Sodium Level 136 Potassium Level 4.3 Chloride Level 102 Carbon Dioxide Level 27 Anion Gap 7 Blood Urea Nitrogen 18 Creatinine 1.00 Est Glomerular > 60 Filtrat Rate mL/min Glucose Level 119 Calcium Level 7.8 L Test 11/11/18 08:13 11/11/18 11:34 Bedside Glucose 134 239 H Home Meds Active Scripts Glipizide* (Glipizide*) 5 Mg Tablet, 5 MG PO AC BREAKFAST for 60 Days, #60 TAB Prov:BAYRON MULLEN MD 11/11/18 Metformin* (Glucophage*) 500 Mg Tab, 1000 MG PO BID WITH MEALS for 60 Days, #120 TAB 5 Refills Prov:BAYRON MULLEN MD 11/11/18 Lisinopril* (Lisinopril*) 5 Mg Tablet, 5 MG PO DAILY for 90 Days, #90 TAB 3 Refills Prov:BAYRON MULLEN MD 11/11/18 Carvedilol* (Carvedilol*) 3.125 Mg Tablet, 3.125 MG PO BID for 60 Days, #120 TAB 5 Refills Prov:BAYRON MULLEN MD 11/11/18 Atorvastatin* (Atorvastatin*) 80 Mg Tablet, 80 MG PO DAILY@21 for 90 Days, #90 TAB 5 Refills Prov:BAYRON MULLEN MD 11/11/18 Amiodarone Hcl* (Amiodarone Hcl*) 200 Mg Tablet, 200 MG PO BID for 30 Days, #60 TAB Prov:BAYRON MULLEN MD 11/11/18 Ticagrelor* (Brilinta*) 90 Mg Tablet, 90 MG PO BID for 30 Days, #60 TAB 9 Refills Prov:BAYRON MULLEN MD 11/11/18 Discontinued Scripts Hydrocodone/Acetaminophen (Paguate 5-325 Tablet) 1 Each Tablet, 1 TAB PO Q6H PRN for PAIN, #20 TAB Prov:SUZI,AYLA 09/26/17 Ibuprofen* (Motrin*) 600 Mg Tab, 600 MG PO Q6, #30 TAB Prov:SUZI,AYLA 09/26/17 Magnesium Hydroxide* (Milk Of Magnesia*) 400 Mg/5 Ml Oral.susp, 30 ML PO DAILY for CONSTIPATION, #200 ML Prov:BROOKS,BEN V. HAND SPRAYER 07/07/17 Docusate Sodium* (Colace*) 100 Mg Capsule, 200 MG PO DAILY, #30 CAP Prov:BROOKS,BEN V. HAND SPRAYER 07/07/17 Glipizide* (Glipizide*) 5 Mg Tablet, 5 MG PO AC BREAKFAST, #30 TAB Prov:BROOKS,BEN V. HAND SPRAYER 07/07/17 Metformin* (Glucophage*) 500 Mg Tab, 500 MG PO WITH BREAKFAST DINNE, #60 TAB Prov:BROOKS,BEN V. HAND SPRAYER 07/07/17 Alprazolam* (Xanax*) 0.5 Mg Tab, 0.5 MG PO Q12 PRN for ANXIETY, #30 TAB Prov:BROOKS,BEN V. HAND SPRAYER 07/06/17 Metronidazole* (Metronidazole*) 500 Mg Tablet, 500 MG PO Q8 for 5 Days, #15 TAB Prov:BROOKS,BEN V. HAND SPRAYER 07/06/17 Ciprofloxacin Hcl* (Ciprofloxacin Hcl*) 500 Mg Tablet, 500 MG PO BID for 5 Days, #10 TAB Prov:BROOKS,BEN V. HAND SPRAYER 07/06/17 Docusate Sodium (Dok) 100 Mg Capsule, 100 MG PO BID, #60 CAP Prov:BROOKS,BEN V. HAND SPRAYER 07/06/17 Famotidine* (Famotidine*) 20 Mg Tablet, 20 MG PO HS, #30 TAB Prov:BROOKS,BEN V. HAND SPRAYER 07/06/17 Hydrocodone Bit-Acetaminophen (Hydrocodone Bit-APAP) 5-325MG Tablet, 1 TAB PO Q4H PRN for PAIN, #14 TAB Prov:BROOKS,BEN V. HAND SPRAYER 07/06/17 Medications Current Medications Nitroglycerin (Nitroglycerin (Sl Tab) 0.4 Mg) 1 tab Q5M UP TO 3 DOSES PRN SL .CHEST PAIN Last administered on 11/06/18at 13:35; Admin Dose 1 TAB; Start 11/06/18 at 13:00 IV Flush (NS 3 ml) 3 ml PER PROTOCOL IV ; Start 11/06/18 at 14:00 Acetaminophen (Tylenol Tab) 650 mg Q6H PRN PO .PAIN 1-3 OR TEMP; Start 11/06/18 at 14:00 Acetaminophen/ Hydrocodone Bitart (Paguate (5/325)) 1 tab Q6H PRN PO .PAIN 4-6; Start 11/06/18 at 14:00 Morphine Sulfate (morphine) 2 mg Q4H PRN IV .PAIN 7-10 Last administered on 11/07/18at 03:00; Admin Dose 2 MG; Start 11/06/18 at 14:00 Insulin Aspart (Novolog Insulin Pen) NOVOLOG *MILD* ALGORITHM WITH MEALS BEDTIME SC Last administered on 11/11/18at 11:39; Admin Dose 3 UNIT; Start 11/06/18 at 17:35 Miscellaneous Information 1 ea NOTE XX ; Start 11/06/18 at 14:30 Glucose (Glutose) 15 gm Q15M PRN PO DECREASED GLUCOSE; Start 11/06/18 at 14:30 Glucose (Glutose) 22.5 gm Q15M PRN PO DECREASED GLUCOSE; Start 11/06/18 at 14:30 Dextrose (D50w Syringe) 25 ml Q15M PRN IV DECREASED GLUCOSE; Start 11/06/18 at 14:30 Dextrose (D50w Syringe) 50 ml Q15M PRN IV DECREASED GLUCOSE; Start 11/06/18 at 14:30 Glucagon (Glucagen) 1 mg Q15M PRN IM DECREASED GLUCOSE; Start 11/06/18 at 14:30 Glucose (Glutose) 15 gm Q15M PRN BUCCAL DECREASED GLUCOSE; Start 11/06/18 at 14:30 Aspirin (Halfprin) 81 mg DAILY PO Last administered on 11/11/18 08:23; Admin Dose 81 MG; Start 11/07/18 at 09:00 Ticagrelor (Brilinta) 90 mg BID PO Last administered on 11/11/18 08:28; Admin Dose 90 MG; Start 11/06/18 at 21:00 Acetaminophen (Tylenol Tab) 650 mg Q4H PRN PO PAIN; Start 11/06/18 at 15:30 Oxycodone/ Acetaminophen (Percocet (5/ 325)) 1 tab Q4H PRN PO PAIN; Start 11/06/18 at 15:30 Oxycodone/ Acetaminophen (Percocet (5/ 325)) 2 tab Q4H PRN PO PAIN; Start 11/06/18 at 15:30 Morphine Sulfate (morphine) 1 mg Q1H PRN IV PAIN LEVEL 6-10; Start 11/06/18 at 15:30 Ondansetron HCl (Zofran Inj) 4 mg Q4H PRN IV NAUSEA AND/OR VOMITING Last administered on 11/09/18 22:11; Admin Dose 4 MG; Start 11/06/18 at 15:30 Docusate Sodium (Colace) 100 mg BID PO Last administered on 11/09/18 13:20; Admin Dose 100 MG; Start 11/06/18 at 21:00 Carvedilol (Coreg) 3.125 mg BID PO Last administered on 11/11/18 08:25; Admin Dose 3.125 MG; Start 11/06/18 at 21:00 Atorvastatin Calcium (Lipitor) 80 mg DAILY@21 PO Last administered on 11/10/18 21:04; Admin Dose 80 MG; Start 11/06/18 at 21:00 Insulin Glargine (Lantus) 25 units DAILY@2000 SC Last administered on 11/07/18 20:33; Admin Dose 25 UNITS; Start 11/07/18 at 20:00; Status Hold Melatonin (Melatonin) 5 mg HS PRN PO INSOMNIA Last administered on 11/11/18 00:07; Admin Dose 5 MG; Start 11/07/18 at 20:30 Metformin HCl (Glucophage) 1,000 mg BID WITH MEALS PO Last administered on 6/12/19at 18:34; Admin Dose 1,000 MG; Start 11/09/18 at 17:55; Status Hold Lisinopril (Zestril) 5 mg DAILY PO Last administered on 11/11/18at 08:25; Admin Dose 5 MG; Start 11/09/18 at 15:30 Amiodarone HCl (Cordarone) 200 mg BID PO Last administered on 11/11/18at 08:23; Admin Dose 200 MG; Start 11/09/18 at 21:00 Simethicone (Mylicon) 80 mg Q8 PRN PO DISTENSION/GAS/BLOATING; Start 11/09/18 at 23:30 Al Hydrox/Mg Hydrox/Simethicone (Mag-Al Plus) 30 ml Q6H PRN PO GASTROINTESTINAL UPSET Last administered on 11/10/18at 00:14; Admin Dose 30 ML; Start 11/09/18 at 23:30 Assessment/Plan Hospital Course (Demo Recall) Acute anterior ST elevation myocardial infarction Severe coronary artery disease include 100% occlusion of the LAD as well as significant obtuse marginal and ramus intermediate disease Status post emergent PCI of the left anterior descending artery Diabetes Most likely dyslipidemia History of pancreatitis History of anxiety Abnormal EKG due to above Paroxysmal atrial fibrillation rapid ventricular response Ischemic cardiomyopathy Recommendations: Aspirin and Brilinta needs to be continued. Importance of compliant with the medication was emphasized to the patient. Diabetic management as per internal medicine. WILL HOLD Metformin today since had contrast yesterday Statin has been started Continue with the Coreg. We will stop amiodarone drip now and start p o amiodarone dc planning is in process pt was given my info to call and schedule a follow up appointment Thank you for this referral. We will continue to follow along with you JEWEL HERNANDEZ MD [facility] JEWEL HERNANDEZ MD Nov 11, 2018 15:20
== END 2018-11-11 17:36 | disposition home or self-care (01) | DRG 247 ==
LOC: E/R 11:07 → ICU 13:03 → SUATTDRO 13:55 → EDBEDREQSVC 13:58 → EDBEDREQ 13:58 → TEL 11-09 05:40
PROVIDERS: ADMIT Internal Medicine; ATTEND Internal Medicine
PROC: 4A023N7 Measurement of Cardiac Sampling and Pressure, Left Heart, Percutaneous Approach (ICD-10-PCS; 2018-11-06)
PROC: B211YZZ Fluoroscopy of Multiple Coronary Arteries using Other Contrast (ICD-10-PCS; 2018-11-06)
PROC: 3E0 Administration, Physiological Systems and Anatomical Regions, Introduction (ICD-10-PCS; 2018-11-06)
PROC: 3E073GC Introduction of Other Therapeutic Substance into Coronary Artery, Percutaneous Approach (ICD-10-PCS; 2018-11-06)
PROC: 027034Z Dilation of Coronary Artery, One Artery with Drug-eluting Intraluminal Device, Percutaneous Approach (ICD-10-PCS; principal; 2018-11-06 14:00)
PROC: 02C03ZZ Extirpation of Matter from Coronary Artery, One Artery, Percutaneous Approach (ICD-10-PCS; 2018-11-06 14:00)
PROC: 027034Z Dilation of Coronary Artery, One Artery with Drug-eluting Intraluminal Device, Percutaneous Approach (ICD-10-PCS; 2018-11-08)
PROC: B211YZZ Fluoroscopy of Multiple Coronary Arteries using Other Contrast (ICD-10-PCS; 2018-11-08)
DX: I21.09 ST elevation (STEMI) myocardial infarction involving other coronary artery of anterior wall (principal); I25.10 Atherosclerotic heart disease of native coronary artery without angina pectoris; I48.0 Paroxysmal atrial fibrillation; I25.5 Ischemic cardiomyopathy; E11.9 Type 2 diabetes mellitus without complications; E78.5 Hyperlipidemia, unspecified; F41.9 Anxiety disorder, unspecified; Z79.84 Long term (current) use of oral hypoglycemic drugs
CPT/HCPCS: 71045; 80048; 80053; 80061; 82550; 82553; 82962; 83036; 83735; 83880; 84100; 84439; 84443; 84484; 85025; 85610; 85730; 87081; 93005; 93306; 93458; 96374; 97161; J0583; C1725; C1757; C1760; C1874; C1887; C1894; C9606; J0282; J1644; J1815; J1885; J2250; J2270; J2405; J2765; J3010; J3475; J7030; J7040; J7060; Q9967

== ENCOUNTER 2018-11-29 01:07 | Observation (INO) | payer OTHER ==
[~2018-11-29] VITALS: Ht 177.8 cm; Wt 99.9 kg
[~2018-11-29 01:07] MED LIST changes: -ALPR0.5T PO; +AMIO200T4 PO; +ATOR-2 PO; +CARV3.1260 PO; -CIPR500T4 PO; -DOCU-144 PO; -DOCU-216 PO; -FAMO20TA18 PO; -HYDR-3601 PO; -HYDR-4011 PO; -IBUP-1542 PO; +LISI-313 PO; -MAGN400O19 PO; -METR-122 PO; +TICA90TA PO
[2018-11-29] MEDS ORDERED: ASPIRIN 81 MG TAB PO STA (01:24)
--- NOTE | 2018-11-29 01:37 | ERD ---
ER Documentation Chief Complaint Chief Complaint L arm/shoulder/leg/chest numbness X 2 wks, recent DC w/ stents X 3 wks ago HPI 47-year-old male with a history of a recent STEMI presenting with left-sided arm, chest, and leg numbness since his STEMI. However his symptoms are worsening. He has no associated headache, speech disturbance, vision disturbance. He states that he has some discomfort in his left chest but he does not describe it as pain. No associated shortness of breath. He was feeling some palpitations intermittently today as well. There were no alleviating or exacerbating factors. ROS All systems reviewed and are negative except as per history of present illness. Medications Home Meds Active Scripts Glipizide* (Glipizide*) 5 Mg Tablet, 5 MG PO AC BREAKFAST for 60 Days, #60 TAB Prov:BAYRON MULLEN MD 11/11/18 Metformin* (Glucophage*) 500 Mg Tab, 1000 MG PO BID WITH MEALS for 60 Days, #120 TAB 5 Refills Prov:BAYRON MULLEN MD 11/11/18 Lisinopril* (Lisinopril*) 5 Mg Tablet, 5 MG PO DAILY for 90 Days, #90 TAB 3 Refills Prov:BAYRON MULLEN MD 11/11/18 Carvedilol* (Carvedilol*) 3.125 Mg Tablet, 3.125 MG PO BID for 60 Days, #120 TAB 5 Refills Prov:BAYRON MULLEN MD 11/11/18 Atorvastatin* (Atorvastatin*) 80 Mg Tablet, 80 MG PO DAILY@21 for 90 Days, #90 TAB 5 Refills Prov:BAYRON MULLEN MD 11/11/18 Amiodarone Hcl* (Amiodarone Hcl*) 200 Mg Tablet, 200 MG PO BID for 30 Days, #60 TAB Prov:BAYRON MULLEN MD 11/11/18 Ticagrelor* (Brilinta*) 90 Mg Tablet, 90 MG PO BID for 30 Days, #60 TAB 9 Refills Prov:BAYRON MULLEN MD 11/11/18 Reported Medications Aspirin Ec (Aspir 81) 81 Mg Tablet.dr, 81 MG PO DAILY, #30 TAB 11/29/18 Allergies Allergies: Coded Allergies: No Known Allergy (Unverified , 11/29/18) PMhx/Soc History of Surgery: Yes (CHEST TUBE PLACEMENT 07/2000) Anesthesia Reaction: No Hx Neurological Disorder: No Hx Respiratory Disorders: No Hx Cardiac Disorders: Yes (CAD, STEMI) Hx Psychiatric Problems: No Hx Miscellaneous Medical Probl: Yes (Diabetes, hyperlipidemia) Hx Alcohol Use: No Hx Substance Use: No Hx Tobacco Use: No FmHx Family History: diabetes Physical Exam Vitals Vital Signs Date Temp Pulse Resp B/P (MAP) Pulse Ox O2 O2 Flow FiO2 Time Delivery Rate 11/29/18 62 10 122/75 Room Air 04:38 (91) 11/29/18 69 17 128/73 98 Room Air 01:30 (91) 11/29/18 97.4 79 18 192/89 99 01:11 (123) Physical Exam Const: No acute distress Head: Atraumatic Eyes: Normal Conjunctiva. PERRLA, EOMI ENT: Normal External Ears, Nose and Mouth. Neck: Full range of motion. No meningismus. Resp: Clear to auscultation bilaterally Cardio: Regular rate and rhythm, no murmurs. 2+ distal pulses in all 4 extremities Abd: Soft, non tender, non distended. Normal bowel sounds Skin: No petechiae or rashes Back: No midline or flank tenderness Ext: No cyanosis, or edema Neur: Awake and alert, oriented x3, cranial nerves intact, strength and sensations grossly intact in all 4 extremities. Normal gait. Psych: Normal Mood and Affect Result Diagram: 11/29/1815711/29/188 Results 24 hrs Laboratory Tests Test 11/29/18 01:58 White Blood Count 11.2 10^3/ul Red Blood Count 4.60 10^6/ul Hemoglobin 14.2 g/dl Hematocrit 40.3 % Mean Corpuscular Volume 87.6 fl Mean Corpuscular Hemoglobin 30.9 pg Mean Corpuscular Hemoglobin Concent 35.2 g/dl Red Cell Distribution Width 13.2 % Platelet Count 325 10^3/UL Mean Platelet Volume 11.7 fl Immature Granulocytes % 0.400 % Neutrophils % 72.4 % Lymphocytes % 12.3 % Monocytes % 11.4 % Eosinophils % 2.8 % Basophils % 0.7 % Nucleated Red Blood Cells % 0.0 /100WBC Immature Granulocytes # 0.040 10^3/ul Neutrophils # 8.1 10^3/ul Lymphocytes # 1.4 10^3/ul Monocytes # 1.3 10^3/ul Eosinophils # 0.3 10^3/ul Basophils # 0.1 10^3/ul Nucleated Red Blood Cells # 0.0 10^3/ul Sodium Level 141 mmol/L Potassium Level 4.3 mmol/L Chloride Level 106 mmol/L Carbon Dioxide Level 22 mmol/L Anion Gap 13 Blood Urea Nitrogen 13 mg/dl Creatinine 0.86 mg/dl Est Glomerular Filtrat Rate mL/min > 60 mL/min Glucose Level 86 mg/dl Calcium Level 8.9 mg/dl Troponin I < 0.012 ng/ml Current Medications Medications Dose Sig/Dimitri Start Time Status Last (Trade) Ordered Route PRN Stop Time Admin Dose Reason Admin Aspirin 162 mg ONCE STAT 11/29/18 DC 11/29/18 (Aspirin) PO 01:24 11/29/18 01:52 01:25 Ondansetron 4 mg ER BRIDGE 11/29/18 HCl (Zofran PRN IV 05:00 11/30/18 Inj) NAUSEA/VOMITI 04:59 NG 650 mg ER BRIDGE 11/29/18 Acetaminophen PRN PO 05:00 11/30/18 (Tylenol .MILD PAIN 04:59 Tab) 1-3 OR TEMP Procedures/MDM EMERGENT LABS AND DIAGNOSTIC STUDIES: Lab Results above were reviewed and interpreted by me. CBC: no anemia or evidence of infection BMP: No e/o clinically significant electrolyte abnormality severe acidosis, alkalosis, renal failure, diabetic ketoacidosis Troponin within normal limits, not indicative of cardiac ischemia 12-lead EKG #1 was interpreted by Dora Browne MD: Normal Sinus Rhythm with ventricular rate of 70 beats per minute Normal axis Normal intervals Evidence of septal infarct with septal Q waves. T wave inversion in the anteroseptal leads with mild ST elevation in V2 and V3. Concerning for ischemia. Similar to old EKG done November 08, 2018 EKG #2: Rate/Rhythm: Normal Sinus Rhythm QRS, ST, T-waves: Anterior septal Q waves. T wave inversions in anterior sep barbara leads, chronic Impression: Abnormal EKG, possible ischemia, no STEMI Radiology Results as interpreted by Radiology below were reviewed by Billie Browne MD: Chest x-ray: No acute abnormalities CT head shows no acute abnormalities Initial Nursing notes reviewed. Previous Medical Records requested via the Electronic Health Record. EMERGENCY DEPARTMENT COURSE / MEDICAL DECISION MAKING: Patient presents with increasing left-sided paresthesias and a discomfort in his left chest. Initial EKG was abnormal. Vitals were notable for hypertension. Initial troponin is negative. Repeat EKG showed improvement of the initial abnormalities on the EKG. However patient is high risk, given his recent STEMI and will require admission for observation and ACS rule out. I have a low suspicion for aortic dissection. CT head was done to evaluate for possible recent stroke and was negative. Further work-up will be deferred to the inpatient physician. Accepting Care Team: Current data and ongoing care discussed. Time: Time of admission Primary Provider: Dr. Spain Consulting: none Outstanding Data: none Departure Diagnosis: Primary Impression: Left sided numbness Additional Impression: Chest discomfort Condition: Fair HERI BROWNE MD Nov 29, 2018 01:37
[2018-11-29] MEDS ORDERED: ASPI-535 PO (03:06)
[2018-11-29] MEDS ORDERED: ACETAMINOPHEN 325 MG TAB PO PRN ×2 (05:00→07:00)
[2018-11-29] MEDS ORDERED: ONDANSETRON 4 MG INJ IV PRN ×2 (05:00→07:00)
--- NOTE | 2018-11-29 06:42 | HP ---
Date/Time of Note Date/Time of Note DATE: 11/29/18 TIME: 06:36 Assessment/Plan VTE Prophylaxis Pharmacological prophylaxis: heparin Lines/Catheters IV Catheter Type (from Nrsg): Saline Lock Assessment/Plan Assessment/Plan 1. Chest pain: Rule out ACS -Patient was admitted here as a code STEMI about 3 weeks ago and underwent PCI with stent to LAD -First troponin now negative and EKG without ST elevation or depression -Continue cardiac medications and antiplatelets -Cardiology consult -CTPA pending 2. Left upper and lower extremity numbness: Head CT negative for acute findings -Obtain MRI of the brain and to check carotids -Continue statin and antiplatelet therapy 3. Type 2 diabetes: Insulin while in-house 4. Dyslipidemia: Statin Result Diagram: 11/29/18 0158 11/29/18 0158 Results 24hrs Laboratory Tests Test 11/29/18 01:58 White Blood Count 11.2 H Red Blood Count 4.60 L Hemoglobin 14.2 Hematocrit 40.3 L Mean Corpuscular Volume 87.6 Mean Corpuscular Hemoglobin 30.9 Mean Corpuscular Hemoglobin Concent 35.2 Red Cell Distribution Width 13.2 Platelet Count 325 # Mean Platelet Volume 11.7 H Immature Granulocytes % 0.400 Neutrophils % 72.4 Lymphocytes % 12.3 L Monocytes % 11.4 H Eosinophils % 2.8 Basophils % 0.7 Nucleated Red Blood Cells % 0.0 Immature Granulocytes # 0.040 H Neutrophils # 8.1 H Lymphocytes # 1.4 Monocytes # 1.3 H Eosinophils # 0.3 Basophils # 0.1 Nucleated Red Blood Cells # 0.0 Sodium Level 141 Potassium Level 4.3 Chloride Level 106 Carbon Dioxide Level 22 Anion Gap 13 Blood Urea Nitrogen 13 Creatinine 0.86 Est Glomerular Filtrat Rate mL/min > 60 Glucose Level 86 Calcium Level 8.9 Troponin I < 0.012 HPI/ROS Admit Date/Time Admit Date/Time Hx of Present Illness Patient is a 47-year-old male with a history of CAD with recent stent, type 2 diabetes, dyslipidemia who presents the ER complaining of left-sided chest pain and left upper and lower extremity numbness. Patient was discharged from here about 2 weeks ago after he was admitted as a code STEMI. At that time he had PCI with stent to LAD. 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 Attempt to crossing this lesion was unsuccessful. When presented to ER today, blood pressure was 192/89. First troponin negative. EKG without ST elevation or depression. Head CT negative for acute findings. PMH/Family/Social Past Medical History Past Surgical Hx: other Family History Significant Family History: no pertinent family hx Social History Alcohol Use: none Smoking Status: Never smoker Drug Use: none Exam Constitutional: other (No acute distress) Head: normocephalic, atraumatic Eyes: EOMI, PERRL Respiratory: clear to auscultation, normal air movement Cardiovascular: regular rate and rhythm Gastrointestinal: soft Extremities: normal pulses Medications Current Medications Ondansetron HCl (Zofran Inj) 4 mg ER BRIDGE PRN IV NAUSEA/VOMITING; Start 11/29/18 at 05:00; Stop 11/30/18 at 04:59 Acetaminophen (Tylenol Tab) 650 mg ER BRIDGE PRN PO .MILD PAIN 1-3 OR TEMP; Start 11/29/18 at 05:00; Stop 11/30/18 at 04:59 Coded Allergies: No Known Allergy (Unverified , 11/29/18) Past Surgical History Past Surgical Hx: no surgical history Family History Significant Family History: no pertinent family hx Social History Smoking Status: Never smoker Exam/Review of Systems Vital Signs Vitals Vital Signs Date Temp Pulse Resp B/P (MAP) Pulse Ox O2 O2 Flow FiO2 Time Delivery Rate 11/29/18 62 10 122/75 Room Air 04:38 (91) 11/29/18 98 01:30 11/29/18 97.4 01:11 JIM ARMAS MD Nov 29, 2018 06:42
[2018-11-29] MEDS ORDERED: NACL 0.9% 3 ML SYG IV SCH (07:00)
[2018-11-29] MEDS ORDERED: NITROGLYCERIN (SL) 0.4 MG TAB SL PRN (07:00)
[2018-11-29] MEDS ORDERED: ALBUTEROL/IPRATROPIUM (NEB) 3 ML AMP HHN PRN (07:00)
[2018-11-29] MEDS: DEXTROSE 5%-0.45% NACL 1,000 ML IV SCH ×2 (07:30→20:05)
--- NOTE | 2018-11-29 09:17 | CONS ---
Assessment/Plan Assessment/Plan Hospital Course (Demo Recall) Chest pain: Appears to be nonanginal Coronary artery disease status post ST elevation [place] Status post multivessel stenting Diabetes hypertension Dyslipidemia Anxiety Nausea vomiting poor appetite Recommendations: Continue with his home medications. Aspirin Brilinta statin beta-iván JULIA in hibitor to be continued Psych work-up and treatment as per internal medicine GI work-up and treatment as per internal medicine Consider manager intel consult to assist the patient in scheduling follow-up appointments I had previously arranged for and made available Brilinta for the patient for free for the first month. However if Brilinta is no longer covering the patient cannot afford why it is probably best to switch him to Plavix after finishing the Brilinta although it has been explained to the patient that data for Plavix is not as clear as Brilinta after acute ST elevation DE. However is better to take Plavix and aspirin as supposed to aspirin only DC planning as per internal medicine Thank you JEWEL HERNANDEZ MD [facility] Consultation Date/Type/Reason Admit Date/Time Date of Consultation: Nov 29, 2018 Type of Consult Cardiology Reason for Consultation Chest pain Requesting Provider: JIM ARMAS MD Date/Time of Note DATE: 11/29/18 TIME: 09:13 Hx of Present Illness Interventional cardiology consultation note Chief complaint: Nausea vomiting poor appetite left arm and leg numbness chest discomfort Reason for consult: Chest pain History of present illness: Thank you for this referral. History was informed the patient discussion physician and staff review of the old chart This is a 39-year-old gentleman with history of coronary artery disease status post anterior ST elevation myocardial infarction about 3 to 4 weeks ago status post emergent PCI of the LAD and also PCI of the ramus intermediate who presents emergency above complaint. Patient said the past 2 days he started having poor appetite nausea vomiting with vomiting he was unable to eat he also having some left arm numbness as well as left leg numbness. He said he was also feeling "weird" in the left side of his chest. This feeling was very different than his heart attack chest pain. He came to emergency room for work-up. So far troponin have been negative he has remained in sinus rhythm. Patient has not followed up with any doctors since the discharge despite instruction to do so. He said that he was given an appoint with his primary care doctor in January 26 is got concerned and nervous. But he said he has been taking his medication regularly Allergies: No known drug allergies Medications as per medical reconciliation sheet which was personally reviewed Family history: No history of early coronary artery disease Social history: Does not smoke or drink Past medical history: History of pancreatitis 2017. Diabetes hypertension dyslipidemia History of anterior ST elevation myocardial infarction October 2018 he underwent PCI of his LAD at that time. He also had ramus intermediate disease which was successfully stented. 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 During the acute DE he also had episode of proximal atrial fibrillation but has remained sinus rhythm now Review of system: Patient denies all others except for above-mentioned Past Medical History Home Meds Active Scripts Glipizide* (Glipizide*) 5 Mg Tablet, 5 MG PO AC BREAKFAST for 60 Days, #60 TAB Prov:BAYRON MULLEN MD 11/11/18 Metformin* (Glucophage*) 500 Mg Tab, 1000 MG PO BID WITH MEALS for 60 Days, #120 TAB 5 Refills Prov:BAYRON MULLEN MD 11/11/18 Lisinopril* (Lisinopril*) 5 Mg Tablet, 5 MG PO DAILY for 90 Days, #90 TAB 3 Refills Prov:BAYRON MULLEN MD 11/11/18 Carvedilol* (Carvedilol*) 3.125 Mg Tablet, 3.125 MG PO BID for 60 Days, #120 TAB 5 Refills Prov:BAYRON MULLEN MD 11/11/18 Atorvastatin* (Atorvastatin*) 80 Mg Tablet, 80 MG PO DAILY@21 for 90 Days, #90 TAB 5 Refills Prov:BAYRON MULLEN MD 11/11/18 Amiodarone Hcl* (Amiodarone Hcl*) 200 Mg Tablet, 200 MG PO BID for 30 Days, #60 TAB Prov:BAYRON MULLEN MD 11/11/18 Ticagrelor* (Brilinta*) 90 Mg Tablet, 90 MG PO BID for 30 Days, #60 TAB 9 Refills Prov:BAYRON MULLEN MD 11/11/18 Reported Medications Aspirin Ec (Aspir 81) 81 Mg Tablet.dr, 81 MG PO DAILY, #30 TAB 11/29/18 Medications Current Medications Ondansetron HCl (Zofran Inj) 4 mg ER BRIDGE PRN IV NAUSEA/VOMITING Last administ ered on 11/29/18at 07:23; Admin Dose 4 MG; Start 11/29/18 at 05:00; Stop 11/30/18 at 04:59 Acetaminophen (Tylenol Tab) 650 mg ER BRIDGE PRN PO .MILD PAIN 1-3 OR TEMP; Start 11/29/18 at 05:00; Stop 11/30/18 at 04:59 Dextrose/Sodium Chloride 1,000 ml @ 75 mls/hr [id number] IV Last administered on 11/29/18at 07:30; Admin Dose 75 MLS/HR; Start 11/29/18 at 06:34 IV Flush (NS 3 ml) 3 ml PER PROTOCOL IV ; Start 11/29/18 at 07:00 Ondansetron HCl (Zofran Inj) 4 mg Q6H PRN IV NAUSEA/VOMITING; Start 11/29/18 at 07:00 Nitroglycerin (Nitroglycerin (Sl Tab) 0.4 Mg) 1 tab Q5M PRN SL .CHEST PAIN; Start 11/29/18 at 07:00 Acetaminophen (Tylenol Tab) 650 mg Q6H PRN PO .PAIN 1-3 OR TEMP; Start 11/29/18 at 07:00 Albuterol/ Ipratropium (Duoneb) 3 ml Q2H RESP THERAPY PRN HHN SHORTNESS OF BREATH; Start 11/29/18 at 07:00 Amiodarone HCl (Cordarone) 200 mg BID PO ; Start 11/29/18 at 09:00 Aspirin (Halfprin) 81 mg DAILY PO ; Start 11/29/18 at 09:00 Atorvastatin Calcium (Lipitor) 80 mg DAILY@21 PO ; Start 11/29/18 at 21:00 Carvedilol (Coreg) 3.125 mg BID PO ; Start 11/29/18 at 09:00 Lisinopril (Zestril) 5 mg DAILY PO ; Start 11/29/18 at 09:00 Ticagrelor (Brilinta) 90 mg BID PO ; Start 11/29/18 at 09:00 Allergies: Coded Allergies: No Known Allergy (Unverified , 11/29/18) Past Surgical History Past Surgical Hx: no surgical history Social History Smoking Status: Never smoker Exam/Review of Systems Vital Signs Vitals Vital Signs Date Temp Pulse Resp B/P (MAP) Pulse Ox O2 O2 Flow FiO2 Time Delivery Rate 11/29/18 98.0 58 12 121/81 98 Room Air 06:30 (94) Exam Exam General: no acute distress HEENT: NC/AT. pupils are equal. round. NECK: NO JVD. no stridor. CV: RRR. systolic murmur; no gallop or rubs. PULM: no wheezing or rhonchi. GI: SOFT, NT, ND, no rebound or guarding Extremity: trace B/L LE edema. no clubbing. neuro: awake and alert, OX3. Psych: calm and pleasant rectal: deferred EKG was personally reviewed showed normal sinus rhythm anteroseptal infarct age undetermined. Labs Result Diagram: 11/29/18 0158 11/29/18 0158 Results 24hrs Laboratory Tests Test 11/29/18 01:58 11/29/18 07:36 White Blood Count 11.2 H Red Blood Count 4.60 L Hemoglobin 14.2 Hematocrit 40.3 L Mean Corpuscular Volume 87.6 Mean Corpuscular Hemoglobin 30.9 Mean Corpuscular Hemoglobin Concent 35.2 Red Cell Distribution Width 13.2 Platelet Count 325 # Mean Platelet Volume 11.7 H Immature Granulocytes % 0.400 Neutrophils % 72.4 Lymphocytes % 12.3 L Monocytes % 11.4 H Eosinophils % 2.8 Basophils % 0.7 Nucleated Red Blood Cells % 0.0 Immature Granulocytes # 0.040 H Neutrophils # 8.1 H Lymphocytes # 1.4 Monocytes # 1.3 H Eosinophils # 0.3 Basophils # 0.1 Nucleated Red Blood Cells # 0.0 Sodium Level 141 Potassium Level 4.3 Chloride Level 106 Carbon Dioxide Level 22 Anion Gap 13 Blood Urea Nitrogen 13 Creatinine 0.86 Est Glomerular Filtrat Rate mL/min > 60 Glucose Level 86 Calcium Level 8.9 Troponin I < 0.012 0.025 Creatine Kinase 65 Creatine Kinase Index 1.6 Creatinine Kinase MB (Mass) 1.06 Medications Medications Current Medications Ondansetron HCl (Zofran Inj) 4 mg ER BRIDGE PRN IV NAUSEA/VOMITING Last administered on 11/29/18at 07:23; Admin Dose 4 MG; Start 11/29/18 at 05:00; Stop 11/30/18 at 04:59 Acetaminophen (Tylenol Tab) 650 mg ER BRIDGE PRN PO .MILD PAIN 1-3 OR TEMP; Start 11/29/18 at 05:00; Stop 11/30/18 at 04:59 Dextrose/Sodium Chloride 1,000 ml @ 75 mls/hr [id number] IV Last administered on 11/29/18at 07:30; Admin Dose 75 MLS/HR; Start 11/29/18 at 06:34 IV Flush (NS 3 ml) 3 ml PER PROTOCOL IV ; Start 11/29/18 at 07:00 Ondansetron HCl (Zofran Inj) 4 mg Q6H PRN IV NAUSEA/VOMITING; Start 11/29/18 at 07:00 Nitroglycerin (Nitroglycerin (Sl Tab) 0.4 Mg) 1 tab Q5M PRN SL .CHEST PAIN; Start 11/29/18 at 07:00 Acetaminophen (Tylenol Tab) 650 mg Q6H PRN PO .PAIN 1-3 OR TEMP; Start 11/29/18 at 07:00 Albuterol/ Ipratropium (Duoneb) 3 ml Q2H RESP THERAPY PRN HHN SHORTNESS OF BREATH; Start 11/29/18 at 07:00 Amiodarone HCl (Cordarone) 200 mg BID PO ; Start 11/29/18 at 09:00 Aspirin (Halfprin) 81 mg DAILY PO ; Start 11/29/18 at 09:00 Atorvastatin Calcium (Lipitor) 80 mg DAILY@21 PO ; Start 11/29/18 at 21:00 Carvedilol (Coreg) 3.125 mg BID PO ; Start 11/29/18 at 09:00 Lisinopril (Zestril) 5 mg DAILY PO ; Start 11/29/18 at 09:00 Ticagrelor (Brilinta) 90 mg BID PO ; Start 11/29/18 at 09:00 JEWEL HERNANDEZ MD Nov 29, 2018 09:17
[2018-11-29] MEDS: AMIODARONE 200 MG TAB PO SCH ×3 (09:29→20:06)
[2018-11-29] MEDS: LISINOPRIL 5 MG TAB PO SCH ×2 (09:30→12:01)
--- NOTE | 2018-11-29 11:54 | PN ---
Date/Time of Note Date/Time of Note DATE: 11/29/18 TIME: 11:49 Assessment/Plan VTE Prophylaxis SCD applied (from Nsg): Yes Pharmacological prophylaxis: other Lines/Catheters IV Catheter Type (from Nrsg): Saline Lock Assessment/Plan Hospital Course S: Patient presently denies chest pain. Seen by cardiology team earlier today. O: VS - see below PE: General: Conversive, lying in bed, no acute distress HEENT: NC/AT. pupils are equal. round. NECK: NO JVD. no stridor. CV: RRR. systolic murmur; no gallop or rubs. PULM: no wheezing or rhonchi. GI: SOFT, NT, ND, no rebound or guarding Extremity: trace B/L LE edema. no clubbing. neuro: No focal deficits Psych: calm and pleasant Assessment/Plan: 47-year-old male who presents with: 1. Chest pain: Rule out ACS -first 2 troponins are negative-Patient was admitted here as a code STEMI about 3 weeks ago and underwent PCI with stent to LAD -Continue cardiac medications and antiplatelets, follow-up third troponin -Cardiology consult -follow-up their further recommendations -Also follow-up results of CTPA -We will also get case management consult to investigate if patient qualifies for any more Brilinta since this is the preferred medication for him given his cardiac stent recently placed on prior admission. Again patient only has 1 month supply and is almost out of this now. 2. Left upper and lower extremity numbness: Head CT negative for acute findings -Consider to obtain MRI of the brain and to check carotids -Continue statin and antiplatelet therapy 3. Type 2 diabetes: Monitor, continue insulin while in-house 4. Dyslipidemia: Statin Result Diagram: 11/29/18 0158 11/29/18 0158 Results 24hrs Laboratory Tests Test 11/29/18 01:58 11/29/18 07:36 White Blood Count 11.2 H Red Blood Count 4.60 L Hemoglobin 14.2 Hematocrit 40.3 L Mean Corpuscular Volume 87.6 Mean Corpuscular Hemoglobin 30.9 Mean Corpuscular Hemoglobin Concent 35.2 Red Cell Distribution Width 13.2 Platelet Count 325 # Mean Platelet Volume 11.7 H Immature Granulocytes % 0.400 Neutrophils % 72.4 Lymphocytes % 12.3 L Monocytes % 11.4 H Eosinophils % 2.8 Basophils % 0.7 Nucleated Red Blood Cells % 0.0 Immature Granulocytes # 0.040 H Neutrophils # 8.1 H Lymphocytes # 1.4 Monocytes # 1.3 H Eosinophils # 0.3 Basophils # 0.1 Nucleated Red Blood Cells # 0.0 Sodium Level 141 Potassium Level 4.3 Chloride Level 106 Carbon Dioxide Level 22 Anion Gap 13 Blood Urea Nitrogen 13 Creatinine 0.86 Est Glomerular Filtrat Rate mL/min > 60 Glucose Level 86 Calcium Level 8.9 Troponin I < 0.012 0.025 Creatine Kinase 65 Creatine Kinase Index 1.6 Creatinine Kinase MB (Mass) 1.06 Exam/Review of Systems Exam Vitals Vital Signs Date Temp Pulse Resp B/P (MAP) Pulse Ox O2 O2 Flow FiO2 Time Delivery Rate 11/29/18 54 17 105/72 97 Room Air 11:00 (83) 11/29/18 98.0 08:30 Results Results 24hrs Laboratory Tests Test 11/29/18 01:58 11/29/18 07:36 White Blood Count 11.2 H Red Blood Count 4.60 L Hemoglobin 14.2 Hematocrit 40.3 L Mean Corpuscular Volume 87.6 Mean Corpuscular Hemoglobin 30.9 Mean Corpuscular Hemoglobin Concent 35.2 Red Cell Distribution Width 13.2 Platelet Count 325 # Mean Platelet Volume 11.7 H Immature Granulocytes % 0.400 Neutrophils % 72.4 Lymphocytes % 12.3 L Monocytes % 11.4 H Eosinophils % 2.8 Basophils % 0.7 Nucleated Red Blood Cells % 0.0 Immature Granulocytes # 0.040 H Neutrophils # 8.1 H Lymphocytes # 1.4 Monocytes # 1.3 H Eosinophils # 0.3 Basophils # 0.1 Nucleated Red Blood Cells # 0.0 Sodium Level 141 Potassium Level 4.3 Chloride Level 106 Carbon Dioxide Level 22 Anion Gap 13 Blood Urea Nitrogen 13 Creatinine 0.86 Est Glomerular Filtrat Rate mL/min > 60 Glucose Level 86 Calcium Level 8.9 Troponin I < 0.012 0.025 Creatine Kinase 65 Creatine Kinase Index 1.6 Creatinine Kinase MB (Mass) 1.06 Medications Medication Current Medications Ondansetron HCl (Zofran Inj) 4 mg ER BRIDGE PRN IV NAUSEA/VOMITING Last administered on 11/29/18at 07:23; Admin Dose 4 MG; Start 11/29/18 at 05:00; Stop 11/30/18 at 04:59 Acetaminophen (Tylenol Tab) 650 mg ER BRIDGE PRN PO .MILD PAIN 1-3 OR TEMP; Start 11/29/18 at 05:00; Stop 11/30/18 at 04:59 Dextrose/Sodium Chloride 1,000 ml @ 75 mls/hr [id number] IV Last administered on 11/29/18at 07:30; Admin Dose 75 MLS/HR; Start 11/29/18 at 06:34 IV Flush (NS 3 ml) 3 ml PER PROTOCOL IV ; Start 11/29/18 at 07:00 Ondansetron HCl (Zofran Inj) 4 mg Q6H PRN IV NAUSEA/VOMITING; Start 11/29/18 at 07:00 Nitroglycerin (Nitroglycerin (Sl Tab) 0.4 Mg) 1 tab Q5M PRN SL .CHEST PAIN; Start 11/29/18 at 07:00 Acetaminophen (Tylenol Tab) 650 mg Q6H PRN PO .PAIN 1-3 OR TEMP; Start 11/29/18 at 07:00 Albuterol/ Ipratropium (Duoneb) 3 ml Q2H RESP THERAPY PRN HHN SHORTNESS OF BREATH; Start 11/29/18 at 07:00 Amiodarone HCl (Cordarone) 200 mg BID PO ; Start 11/29/18 at 09:00 Aspirin (Halfprin) 81 mg DAILY PO ; Start 11/29/18 at 09:00 Atorvastatin Calcium (Lipitor) 80 mg DAILY@21 PO ; Start 11/29/18 at 21:00 Carvedilol (Coreg) 3.125 mg BID PO ; Start 11/29/18 at 09:00 Lisinopril (Zestril) 5 mg DAILY PO ; Start 11/29/18 at 09:00 Ticagrelor (Brilinta) 90 mg BID PO ; Start 11/29/18 at 09:00 CIERA BUTCHER Nov 29, 2018 11:54
[2018-11-29] MEDS: TICAGRELOR 90 MG TABLET PO SCH ×2 (12:00→20:19)
[2018-11-29] MEDS: ASPIRIN (EC) 81 MG TAB PO SCH (12:01)
[2018-11-29 17:20] VITALS: Ht 177.8 cm; Wt 99.9 kg
[2018-11-29 17:21] VITALS: BP 158/70; PULSE 65; RESP 18
[2018-11-29] MEDS: ATORVASTATIN 80 MG TAB PO SCH (20:05)
[2018-11-29 20:29] VITALS: BP 116/67; PULSE 63; RESP 18
[2018-11-29] MEDS ORDERED: GLUCOSE GEL 15 GRAM TUBE BUCCAL PRN (22:00)
[2018-11-29] MEDS ORDERED: GLUCOSE GEL 15 GRAM TUBE PO PRN ×2 (22:00)
[2018-11-29] MEDS ORDERED: MELATONIN 5 MG TABLET PO ONE (22:00)
[2018-11-29] MEDS ORDERED: DEXTROSE 50% 50 ML SYRINGE IV PRN ×2 (22:00)
[2018-11-29] MEDS ORDERED: GLUCAGON 1 MG INJ IM PRN (22:00)
[2018-11-29] MEDS: INSULIN ASPART [NOVOLOG] 3 ML PEN SC SCH (23:04)
[2018-11-30] VITALS (7 sets, daily range): BP systolic 108–132; BP diastolic 60–70; PULSE 55–66; RESP 18–20
[2018-11-30] MEDS: ACCU-CHEK XX SCH (02:32)
[2018-11-30] MEDS: INSULIN ASPART [NOVOLOG] 3 ML PEN SC SCH ×4 (07:55→20:12)
--- NOTE | 2018-11-30 08:45 | CONS ---
Consult Date/Type/Reason Admit Date/Time Nov 29, 2018 at 04:37 Initial Consult Date 11/29/18 Type of Consultation: CV Requesting Provider: JIM ARMAS MD Date/Time of Note DATE: 11/30/18 TIME: 08:42 Subjective Interventional cardiology follow-up progress note S: D/W STAFF. tele was reviewed. pt has remained in NSR. No atrial fibrillation overnight is noted no cp still c/o left arm hand and left leg numbness No palpitation Objective: General: no acute distress HEENT: NC/AT. pupils are equal. round. NECK: NO JVD. no stridor. CV: RRR. systolic murmur; no gallop or rubs. PULM: no wheezing or rhonchi. GI: SOFT, NT, ND, no rebound or guarding Extremity: trace B/L LE edema. no clubbing. neuro: awake and alert, OX3. Psych: calm and pleasant rectal: deferred Objective Vitals Vital Signs Date Temp Pulse Resp B/P (MAP) Pulse Ox O2 O2 Flow FiO2 Time Delivery Rate 11/30/18 97.9 55 18 108/60 99 Room Air 07:16 (76) Intake and Output 11/29/18 11/29/18 11/30/18 1515:00 23:00 07:00 IntakeIntake Total 1000 ml 480 ml OutputOutput Total 600 ml 1200 ml BalanceBalance 400 ml -720 ml Results/Medications Result Diagram: 11/30/18 0604 11/30/18 0604 Results 24 hrs Laboratory Tests Test 11/29/18 15:34 11/29/18 17:26 11/29/18 21:36 11/29/18 22:52 Bedside Glucose 163 227 H 288 H Creatine Kinase 57 Creatine Kinase Index 1.8 Creatinine Kinase MB 1.02 (Mass) Troponin I < 0.012 Test 11/30/18 02:36 11/30/18 06:04 11/30/18 08:04 Bedside Glucose 148 109 White Blood Count 8.5 # Red Blood Count 4.27 L Hemoglobin 12.9 L Hematocrit 37.9 L Mean Corpuscular Volume 88.8 Mean Corpuscular 30.2 Hemoglobin Mean Corpuscular 34.0 Hemoglobin Concent Red Cell Distribution 13.5 Width Platelet Count 254 # Mean Platelet Volume 11.9 H Immature Granulocytes % 0.400 Neutrophils % 64.1 Lymphocytes % 16.4 Monocytes % 14.2 H Eosinophils % 3.8 Basophils % 1.1 Nucleated Red Blood 0.0 Cells % Immature Granulocytes # 0.030 Neutrophils # 5.4 Lymphocytes # 1.4 Monocytes # 1.2 H Eosinophils # 0.3 Basophils # 0.1 Nucleated Red Blood 0.0 Cells # Sodium Level 143 Potassium Level 4.8 Chloride Level 107 Carbon Dioxide Level 28 Anion Gap 8 Blood Urea Nitrogen 12 Creatinine 0.97 Est Glomerular Filtrat > 60 Rate mL/min Glucose Level 107 Calcium Level 8.5 Total Bilirubin 1.0 Direct Bilirubin 0.00 Indirect Bilirubin 1.0 Aspartate Amino 28 Transf (AST/SGOT) Alanine 40 Aminotransferase (ALT/SG PT) Alkaline Phosphatase 92 Total Protein 6.9 Albumin 3.6 Globulin 3.30 H Albumin/Globulin Ratio 1.09 Home Meds Active Scripts Glipizide* (Glipizide*) 5 Mg Tablet, 5 MG PO AC BREAKFAST for 60 Days, #60 TAB Prov:BAYRON MULLEN MD 11/11/18 Metformin* (Glucophage*) 500 Mg Tab, 1000 MG PO BID WITH MEALS for 60 Days, #120 TAB 5 Refills Prov:BAYRON MULLEN MD 11/11/18 Lisinopril* (Lisinopril*) 5 Mg Tablet, 5 MG PO DAILY for 90 Days, #90 TAB 3 Refills Prov:BAYRON MULLEN MD 11/11/18 Carvedilol* (Carvedilol*) 3.125 Mg Tablet, 3.125 MG PO BID for 60 Days, #120 TAB 5 Refills Prov:BAYRON MULLEN MD 11/11/18 Atorvastatin* (Atorvastatin*) 80 Mg Tablet, 80 MG PO DAILY@21 for 90 Days, #90 TAB 5 Refills Prov:BAYRON MULLEN MD 11/11/18 Amiodarone Hcl* (Amiodarone Hcl*) 200 Mg Tablet, 200 MG PO BID for 30 Days, #60 TAB Prov:BAYRON MULLEN MD 11/11/18 Ticagrelor* (Brilinta*) 90 Mg Tablet, 90 MG PO BID for 30 Days, #60 TAB 9 Refills Prov:BAYRON MULLEN MD 11/11/18 Reported Medications Aspirin Ec (Aspir 81) 81 Mg Tablet.dr, 81 MG PO DAILY, #30 TAB 7/2/19 Medications Current Medications Dextrose/Sodium Chloride 1,000 ml @ 75 mls/hr [id number] IV Last administered on 11/29/18 20:05; Admin Dose 75 MLS/HR; Start 11/29/18 at 06:34 IV Flush (NS 3 ml) 3 ml PER PROTOCOL IV ; Start 11/29/18 at 07:00 Ondansetron HCl (Zofran Inj) 4 mg Q6H PRN IV NAUSEA/VOMITING; Start 11/29/18 at 07:00 Nitroglycerin (Nitroglycerin (Sl Tab) 0.4 Mg) 1 tab Q5M PRN SL .CHEST PAIN; Start 11/29/18 at 07:00 Acetaminophen (Tylenol Tab) 650 mg Q6H PRN PO .PAIN 1-3 OR TEMP; Start 11/29/18 at 07:00 Albuterol/ Ipratropium (Duoneb) 3 ml Q2H RESP THERAPY PRN HHN SHORTNESS OF B REATH; Start 11/29/18 at 07:00 Amiodarone HCl (Cordarone) 200 mg BID PO Last administered on 11/29/18at 20:06; Admin Dose 200 MG; Start 11/29/18 at 09:00 Aspirin (Halfprin) 81 mg DAILY PO Last administered on 11/29/18at 12:01; Admin Dose 81 MG; Start 11/29/18 at 09:00 Atorvastatin Calcium (Lipitor) 80 mg DAILY@21 PO Last administered on 11/29/18at 20:05; Admin Dose 80 MG; Start 11/29/18 at 21:00 Carvedilol (Coreg) 3.125 mg BID PO Last administered on 11/29/18 20:05; Admin Dose 3.125 MG; Start 11/29/18 at 09:00 Lisinopril (Zestril) 5 mg DAILY PO Last administered on 11/29/18 12:01; Admin Dose 5 MG; Start 11/29/18 at 09:00 Ticagrelor (Brilinta) 90 mg BID PO Last administered on 11/29/18 20:19; Admin Dose 90 MG; Start 11/29/18 at 09:00 Diagnostic Test (Pha) (Accu-Chek) XX Last administered on 11/30/18at 02:32; Admin Dose 1 EA; Start 11/30/18 at 02:00 Insulin Aspart (Novolog Insulin Pen) NOVOLOG *MILD* ALGORITHM WITH MEALS BEDTIME SC Last administered on 11/29/18at 23:04; Admin Dose 3 UNIT; Start 11/29/18 at 22:30 Miscellaneous Information 1 ea NOTE XX ; Start 11/29/18 at 22:00 Glucose (Glutose) 15 gm Q15M PRN PO DECREASED GLUCOSE; Start 11/29/18 at 22:00 Glucose (Glutose) 22.5 gm Q15M PRN PO DECREASED GLUCOSE; Start 11/29/18 at 22:00 Dextrose (D50w Syringe) 25 ml Q15M PRN IV DECREASED GLUCOSE; Start 11/29/18 at 22:00 Dextrose (D50w Syringe) 50 ml Q15M PRN IV DECREASED GLUCOSE; Start 11/29/18 at 22:00 Glucagon (Glucagen) 1 mg Q15M PRN IM DECREASED GLUCOSE; Start 11/29/18 at 22:00 Glucose (Glutose) 15 gm Q15M PRN BUCCAL DECREASED GLUCOSE; Start 11/29/18 at 22:00 Assessment/Plan Hospital Course (Demo Recall) Chest pain: Appears to be nonanginal Coronary artery disease status post ST elevation [place] Status post multivessel stenting Diabetes hypertension Dyslipidemia Anxiety Nausea vomiting poor appetite Left arm and leg numbness rule out CVA. CT was read unremarkable. Recommendations: Continue with his home medications. Aspirin Brilinta statin beta-iván JULIA inhibitor to be continued Psych work-up and treatment as per internal medicine GI work-up and treatment as per internal medicine Consider medical clinic manager consult to assist the patient in scheduling follow-up appointments I will order an MRI of the head to rule out CVA. Otherwise no further cardiac work-up is indicated at this point DC planning as per internal medicine Thank you JEWEL HERNANDEZ MD [facility] JEWEL HERNANDEZ MD Nov 30, 2018 08:45
[2018-11-30] MEDS: TICAGRELOR 90 MG TABLET PO SCH ×2 (09:51→20:08)
[2018-11-30] MEDS: AMIODARONE 200 MG TAB PO SCH ×2 (09:56→20:03)
[2018-11-30] MEDS: ASPIRIN (EC) 81 MG TAB PO SCH (09:56)
[2018-11-30] MEDS: LISINOPRIL 5 MG TAB PO SCH (09:56)
[2018-11-30] MEDS: DEXTROSE 5%-0.45% NACL 1,000 ML IV SCH (10:42)
--- NOTE | 2018-11-30 11:09 | PN ---
Date/Time of Note Date/Time of Note DATE: 11/30/18 TIME: 11:08 Assessment/Plan VTE Prophylaxis Risk score (from Ns)>0 risk: 2 SCD applied (from Ns): Yes Pharmacological prophylaxis: other Lines/Catheters IV Catheter Type (from [facility]): Peripheral IV Assessment/Plan Hospital Course S: Patient seen by cardiology earlier today. No acute events overnight. Waiting for MRI of the brain to be performed. O: VS - see below PE: General: Conversive, lying in bed, no acute distress HEENT: NC/AT. pupils are equal. round. NECK: NO JVD. no stridor. CV: RRR. systolic murmur; no gallop or rubs. PULM: no wheezing or rhonchi. GI: SOFT, NT, ND, no rebound or guarding Extremity: trace B/L LE edema. no clubbing. neuro: No focal deficits Psych: calm and pleasant Assessment/Plan: 47-year-old male who presents with: 1. Chest pain: Has ruled out ACS -Patient was admitted here as a code STEMI about 3 weeks ago and underwent PCI with stent to LAD -Continue cardiac medications and antiplatelets -Cardiology consult -follow-up their further recommendations -Follow-up MRI brain results -Waiting for clarification from case management consult to investigate if patient qualifies for any more Brilinta since this is the preferred medication for him given his cardiac stent recently placed on prior admission. Again patient only has 1 month supply and is almost out of this now. 2. Left upper and lower extremity numbness: Head CT negative for acute findings -Again, follow-up MRI of the brain -Continue statin and antiplatelet therapy 3. Type 2 diabetes: Monitor, continue insulin while in-house 4. Dyslipidemia: Statin Result Diagram: 11/30/18 0604 11/30/18 0604 Results 24hrs Laboratory Tests Test 11/29/18 15:34 11/29/18 17:26 11/29/18 21:36 11/29/18 22:52 Bedside Glucose 163 227 H 288 H Creatine Kinase 57 Creatine Kinase Index 1.8 Creatinine Kinase MB 1.02 (Mass) Troponin I < 0.012 Test 11/30/18 02:36 11/30/18 06:04 11/30/18 08:04 Bedside Glucose 148 109 White Blood Count 8.5 # Red Blood Count 4.27 L Hemoglobin 12.9 L Hematocrit 37.9 L Mean Corpuscular Volume 88.8 Mean Corpuscular 30.2 Hemoglobin Mean Corpuscular 34.0 Hemoglobin Concent Red Cell Distribution 13.5 Width Platelet Count 254 # Mean Platelet Volume 11.9 H Immature Granulocytes % 0.400 Neutrophils % 64.1 Lymphocytes % 16.4 Monocytes % 14.2 H Eosinophils % 3.8 Basophils % 1.1 Nucleated Red Blood 0.0 Cells % Immature Granulocytes # 0.030 Neutrophils # 5.4 Lymphocytes # 1.4 Monocytes # 1.2 H Eosinophils # 0.3 Basophils # 0.1 Nucleated Red Blood 0.0 Cells # Sodium Level 143 Potassium Level 4.8 Chloride Level 107 Carbon Dioxide Level 28 Anion Gap 8 Blood Urea Nitrogen 12 Creatinine 0.97 Est Glomerular Filtrat > 60 Rate mL/min Glucose Level 107 Calcium Level 8.5 Total Bilirubin 1.0 Direct Bilirubin 0.00 Indirect Bilirubin 1.0 Aspartate Amino 28 Transf (AST/SGOT) Alanine 40 Aminotransferase (ALT/SG PT) Alkaline Phosphatase 92 Total Protein 6.9 Albumin 3.6 Globulin 3.30 H Albumin/Globulin Ratio 1.09 Exam/Review of Systems Exam Vitals Vital Signs Date Temp Pulse Resp B/P (MAP) Pulse Ox O2 O2 Flow FiO2 Time Delivery Rate 11/30/18 97.5 58 18 119/61 97 Room Air 10:50 (80) Intake and Output 11/29/18 11/29/18 11/30/18 1515:00 23:00 07:00 IntakeIntake Total 1000 ml 480 ml OutputOutput Total 600 ml 1200 ml BalanceBalance 400 ml -720 ml Results Results 24hrs Laboratory Tests Test 11/29/18 15:34 11/29/18 17:26 11/29/18 21:36 11/29/18 22:52 Bedside Glucose 163 227 H 288 H Creatine Kinase 57 Creatine Kinase Index 1.8 Creatinine Kinase MB 1.02 (Mass) Troponin I < 0.012 Test 11/30/18 02:36 11/30/18 06:04 11/30/18 08:04 Bedside Glucose 148 109 White Blood Count 8.5 # Red Blood Count 4.27 L Hemoglobin 12.9 L Hematocrit 37.9 L Mean Corpuscular Volume 88.8 Mean Corpuscular 30.2 Hemoglobin Mean Corpuscular 34.0 Hemoglobin Concent Red Cell Distribution 13.5 Width Platelet Count 254 # Mean Platelet Volume 11.9 H Immature Granulocytes % 0.400 Neutrophils % 64.1 Lymphocytes % 16.4 Monocytes % 14.2 H Eosinophils % 3.8 Basophils % 1.1 Nucleated Red Blood 0.0 Cells % Immature Granulocytes # 0.030 Neutrophils # 5.4 Lymphocytes # 1.4 Monocytes # 1.2 H Eosinophils # 0.3 Basophils # 0.1 Nucleated Red Blood 0.0 Cells # Sodium Level 143 Potassium Level 4.8 Chloride Level 107 Carbon Dioxide Level 28 Anion Gap 8 Blood Urea Nitrogen 12 Creatinine 0.97 Est Glomerular Filtrat > 60 Rate mL/min Glucose Level 107 Calcium Level 8.5 Total Bilirubin 1.0 Direct Bilirubin 0.00 Indirect Bilirubin 1.0 Aspartate Amino 28 Transf (AST/SGOT) Alanine 40 Aminotransferase (ALT/SG PT) Alkaline Phosphatase 92 Total Protein 6.9 Albumin 3.6 Globulin 3.30 H Albumin/Globulin Ratio 1.09 Medications Medication Current Medications Dextrose/Sodium Chloride 1,000 ml @ 75 mls/hr [id number] IV Last administered on 11/30/18at 10:42; Admin Dose 75 MLS/HR; Start 11/29/18 at 06:34 IV Flush (NS 3 ml) 3 ml PER PROTOCOL IV ; Start 11/29/18 at 07:00 Ondansetron HCl (Zofran Inj) 4 mg Q6H PRN IV NAUSEA/VOMITING; Start 11/29/18 at 07:00 Nitroglycerin (Nitroglycerin (Sl Tab) 0.4 Mg) 1 tab Q5M PRN SL .CHEST PAIN; Start 11/29/18 at 07:00 Acetaminophen (Tylenol Tab) 650 mg Q6H PRN PO .PAIN 1-3 OR TEMP Last administered on 11/30/18at 10:48; Admin Dose 650 MG; Start 11/29/18 at 07:00 Albuterol/ Ipratropium (Duoneb) 3 ml Q2H RESP THERAPY PRN HHN SHORTNESS OF BREATH; Start 11/29/18 at 07:00 Amiodarone HCl (Cordarone) 200 mg BID PO Last administered on 11/30/18 09:56; Admin Dose 200 MG; Start 11/29/18 at 09:00 Aspirin (Halfprin) 81 mg DAILY PO Last administered on 11/30/18at 09:56; Admin Dose 81 MG; Start 11/29/18 at 09:00 Atorvastatin Calcium (Lipitor) 80 mg DAILY@21 PO Last administered on 11/29/18at 20:05; Admin Dose 80 MG; Start 11/29/18 at 21:00 Carvedilol (Coreg) 3.125 mg BID PO Last administered on 11/30/18at 09:57; Admin Dose 3.125 MG; Start 11/29/18 at 09:00 Lisinopril (Zestril) 5 mg DAILY PO Last administered on 11/30/18at 09:56; Admin Dose 5 MG; Start 11/29/18 at 09:00 Ticagrelor (Brilinta) 90 mg BID PO Last administered on 11/30/18at 09:51; Admin Dose 90 MG; Start 11/29/18 at 09:00 Diagnostic Test (Pha) (Accu-Chek) 1 ea 02 XX Last administered on 11/30/18at 02:32; Admin Dose 1 EA; Start 11/30/18 at 02:00 Insulin Aspart (Novolog Insulin Pen) NOVOLOG *MILD* ALGORITHM WITH MEALS BEDTIME SC Last administered on 11/29/18at 23:04; Admin Dose 3 UNIT; Start 11/29/18 at 22:30 Miscellaneous Information 1 ea NOTE XX ; Start 11/29/18 at 22:00 Glucose (Glutose) 15 gm Q15M PRN PO DECREASED GLUCOSE; Start 11/29/18 at 22:00 Glucose (Glutose) 22.5 gm Q15M PRN PO DECREASED GLUCOSE; Start 11/29/18 at 22:00 Dextrose (D50w Syringe) 25 ml Q15M PRN IV DECREASED GLUCOSE; Start 11/29/18 at 22:00 Dextrose (D50w Syringe) 50 ml Q15M PRN IV DECREASED GLUCOSE; Start 11/29/18 at 22:00 Glucagon (Glucagen) 1 mg Q15M PRN IM DECREASED GLUCOSE; Start 11/29/18 at 22:00 Glucose (Glutose) 15 gm Q15M PRN BUCCAL DECREASED GLUCOSE; Start 11/29/18 at 22:00 CIERA BUTCHER Nov 30, 2018 11:09
[2018-11-30] MEDS: ATORVASTATIN 80 MG TAB PO SCH (20:03)
[2018-11-30] MEDS ORDERED: MAGNESIUM HYDROXIDE 30ML CUP PO PRN (21:30)
[2018-12-01 00:27] VITALS: BP 139/77; PULSE 68; RESP 20
[2018-12-01] MEDS ORDERED: MELATONIN 5 MG TABLET PO ONE (00:30)
[2018-12-01] MEDS: ACCU-CHEK XX SCH (01:59)
[2018-12-01 07:38] VITALS: BP 134/75; PULSE 59; RESP 19
[2018-12-01] MEDS: INSULIN ASPART [NOVOLOG] 3 ML PEN SC SCH ×3 (07:55→16:56)
[2018-12-01] MEDS: LISINOPRIL 5 MG TAB PO SCH (08:13)
[2018-12-01] MEDS: ASPIRIN (EC) 81 MG TAB PO SCH (08:13)
[2018-12-01] MEDS: TICAGRELOR 90 MG TABLET PO SCH (08:19)
[2018-12-01] MEDS: AMIODARONE 200 MG TAB PO SCH (08:47)
[2018-12-01 11:02] VITALS: BP 112/68; PULSE 60; RESP 18
--- NOTE | 2018-12-01 11:43 | PDOCDIS ---
Discharge Instructions CONDITION [id number] Patient Condition: [id number] Stable HOME CARE INSTRUCTIONS: [id number] Diet Instructions: [id number] Low Fat /Cholesterol ACTIVITY: [id number] Activity Restrictions: [id number] Slowly Increase Activity Rest between Activity Avoid heavy lifting FOLLOW UP/APPOINTMENTS Follow-up Plan Please take your medications as prescribed, see your doctor clinic in the next 1 week. CIERA BUTCHER Dec 01, 2018 11:43
[2018-12-01] MEDS ORDERED: DOCU-144 PO (11:44)
--- NOTE | 2018-12-01 11:48 | DS ---
Date/Time of Note Date/Time of Note DATE: 12/01/18 TIME: 11:45 Discharge Summary Admission/Discharge Info Admit Date/Time Nov 29, 2018 at 04:37 Discharge Date/Time Discharge Diagnosis 1. Chest pain: Has ruled out for ACS 2. NSTEMI: Occurred few weeks ago, status post stent placement at that time 3. Left upper and lower extremity numbness: Head CT negative for acute findings, as well as MRI brain 4. Type 2 diabetes 5. Dyslipidemia Patient Condition: Stable Hx of Present Illness 47-year-old male with a history of CAD with recent stent, type 2 diabetes, dyslipidemia who presents the ER complaining of left-sided chest pain and left upper and lower extremity numbness. Patient was discharged from here about 2 weeks ago after he was admitted as a code STEMI. At that time he had PCI with stent to LAD. 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 Attempt to crossing this lesion was unsuccessful. When presented to ER today, blood pressure was 192/89. First troponin negative. EKG without ST elevation or depression. Head CT negative for acute findings. Hospital Course Patient was admitted to telemetry floor. He ruled out for acute coronary syndrome. He was evaluated by the cardiology team as well. He was able to ambulate, tolerated p.o. diet. He did complain of some left upper lower extremity numbness and tingling symptoms and he had imaging studies performed of the brain including head CT and MRI brain which were negative for any acute findings. Case management was involved in the patient's care because patient apparently was having some problems getting insurance authorization for his Brilinta medication. In the meantime after discussion with cardiology team, patient will be switched over to Plavix if he cannot get full insurance approval for the Brilinta. He will take that medication along with his other medicines listed below. Patient will be discharged home today in improved condition. See below for list of discharge medications. Home Meds Active Scripts Docusate Sodium* (Colace*) 100 Mg Capsule, 100 MG PO BID, #60 CAP 2 Refills Prov:CIERA BUTCHER 12/01/18 Glipizide* (Glipizide*) 5 Mg Tablet, 5 MG PO AC BREAKFAST for 60 Days, #60 TAB Prov:BAYRON MULLEN MD 11/11/18 Metformin* (Glucophage*) 500 Mg Tab, 1000 MG PO BID WITH MEALS for 60 Days, #120 TAB 5 Refills Prov:BAYRON MULLEN MD 11/11/18 Lisinopril* (Lisinopril*) 5 Mg Tablet, 5 MG PO DAILY for 90 Days, #90 TAB 3 Refills Prov:BAYRON MULLEN MD 11/11/18 Carvedilol* (Carvedilol*) 3.125 Mg Tablet, 3.125 MG PO BID for 60 Days, #120 TAB 5 Refills Prov:BAYRON MULLEN MD 11/11/18 Atorvastatin* (Atorvastatin*) 80 Mg Tablet, 80 MG PO DAILY@21 for 90 Days, #90 TAB 5 Refills Prov:BAYRON MULLEN MD 11/11/18 Amiodarone Hcl* (Amiodarone Hcl*) 200 Mg Tablet, 200 MG PO BID for 30 Days, #60 TAB Prov:BAYRON MULLEN MD 11/11/18 Ticagrelor* (Brilinta*) 90 Mg Tablet, 90 MG PO BID for 30 Days, #60 TAB 9 Refills Prov:BAYRON MULLEN MD 11/11/18 Reported Medications Aspirin Ec (Aspir 81) 81 Mg Tablet., 81 MG PO DAILY, #30 TAB 11/29/18 Follow-up Plan Please take your medications as prescribed, see your doctor clinic in the next 1 week. Primary Care Provider Care Physician No Primary Time spent on discharge: > 30 minutes Pending Labs Laboratory Tests Test 11/30/18 11:56 11/30/18 17:55 11/30/18 20:01 12/01/18 07:40 Bedside 190 201 181 91 Glucose mg/dL (70-220) mg/dL (70-220) mg/dL (70-220) mg/dL (70-220) CIERA BUTCHER Dec 01, 2018 11:48
[2018-12-01] MEDS ORDERED: AMIO200T4 PO ×2 (13:45→13:55)
[2018-12-01 15:18] VITALS: BP 118/69; PULSE 63; RESP 19
== END 2018-12-01 17:38 | disposition home or self-care (01) ==
LOC: E/R 01:07 → TEL 04:37 → EDBEDREQSVC 08:43 → TEL 11-30 23:42
PROVIDERS: ADMIT Internal Medicine Interventional Cardiology; ATTEND Hospitalist
DX: R07.9 Chest pain, unspecified (principal); R20.0 Anesthesia of skin; I25.10 Atherosclerotic heart disease of native coronary artery without angina pectoris; Z95.5 Presence of coronary angioplasty implant and graft; E11.9 Type 2 diabetes mellitus without complications; E78.5 Hyperlipidemia, unspecified; I25.2 Old myocardial infarction; Z79.82 Long term (current) use of aspirin; Z79.84 Long term (current) use of oral hypoglycemic drugs
CPT/HCPCS: 36415; 70450; 70553; 71045; 80048; 80053; 82550; 82553; 82962; 84484; 85025; 87081; 93005; J1815; J2405; J7042; Z7500; Z7502; Z7610; 99217; G0378

== ENCOUNTER 2018-12-08 17:30 | Observation (INO) | payer OTHER ==
[~2018-12-08] VITALS: Ht 177.8 cm; Wt 95.5 kg
[~2018-12-08 17:30] MED LIST changes: +ASPI-535 PO; +DOCU-144 PO
[2018-12-08] MEDS ORDERED: DEXTROSE 5%-0.9% NACL 1,000 ML IV STA (18:00)
--- NOTE | 2018-12-08 21:32 | ERD ---
ER Documentation Chief Complaint Chief Complaint DIARRHEA, DECREASED APPETITE FOR 3 DAYS. BS 58 IN INTAKE. A&O X 4. HPI Patient is a 47-year-old male with coronary disease, hypertension, and diabetes who presents with low blood sugar. The patient said that he has had 2.5 days of nausea, vomiting, and diarrhea. He has a decreased appetite. He has no fevers. His blood sugar was 58 in the waiting room and he was given juice. He is on metformin and glipizide. He was recently discharged on December 01 and said that he is taking all medicines as directed. He said that he was eating well and did take his pills today at 1050 in the morning. He does not currently have a primary doctor. Upon review of old medical records this is the patient's eighth visit to the ER since 2012. ROS All systems reviewed and are negative except as per history of present illness. Medications Home Meds Active Scripts Amiodarone Hcl* (Amiodarone Hcl*) 200 Mg Tablet, 200 MG PO DAILY, #30 TAB 1 Refill Prov:CIERA BUTCHER S. 12/01/18 Docusate Sodium* (Colace*) 100 Mg Capsule, 100 MG PO BID, #60 CAP 2 Refills Prov:CIERA BUTCHER S. 12/01/18 Glipizide* (Glipizide*) 5 Mg Tablet, 5 MG PO AC BREAKFAST for 60 Days, #60 TAB Prov:BAYRON MULLEN MD 11/11/18 Metformin* (Glucophage*) 500 Mg Tab, 1000 MG PO BID WITH MEALS for 60 Days, #120 TAB 5 Refills Prov:BAYRON MULLEN MD 11/11/18 Lisinopril* (Lisinopril*) 5 Mg Tablet, 5 MG PO DAILY for 90 Days, #90 TAB 3 Refills Prov:BAYRON MULLEN MD 11/11/18 Carvedilol* (Carvedilol*) 3.125 Mg Tablet, 3.125 MG PO BID for 60 Days, #120 TAB 5 Refills Prov:BAYRON MULLEN MD 11/11/18 Atorvastatin* (Atorvastatin*) 80 Mg Tablet, 80 MG PO DAILY@21 for 90 Days, #90 TAB 5 Refills Prov:BAYRON MULLEN MD 11/11/18 Ticagrelor* (Brilinta*) 90 Mg Tablet, 90 MG PO BID for 30 Days, #60 TAB 9 Refills Prov:BAYRON MULLEN MD 11/11/18 Reported Medications Aspirin Ec (Aspir 81) 81 Mg Tablet.dr, 81 MG PO DAILY, #30 TAB 11/29/18 Discontinued Scripts Amiodarone Hcl* (Amiodarone Hcl*) 200 Mg Tablet, 200 MG PO BID for 30 Days, #60 TAB Prov:BAYRON MULLEN MD 11/11/18 Allergies Allergies: Coded Allergies: No Known Allergy (Unverified , 11/29/18) PMhx/Soc History of Surgery: Yes (Stent placement ) Anesthesia Reaction: No Hx Neurological Disorder: No Hx Respiratory Disorders: No Hx Cardiac Disorders: Yes Hx Psychiatric Problems: No Hx Miscellaneous Medical Probl: No Hx Alcohol Use: No Hx Substance Use: No Hx Tobacco Use: No Smoking Status: Never smoker FmHx Family History: No diabetes Physical Exam Vitals Vital Signs Date Temp Pulse Resp B/P (MAP) Pulse Ox O2 O2 Flow FiO2 Time Delivery Rate 12/08/18 69 16 141/83 97 Room Air 20:18 (102) 12/08/18 71 15 129/78 99 Room Air 18:38 (95) 12/08/18 97.9 89 18 183/81 98 17:46 (115) Physical Exam Const: No acute distress Head: Atraumatic Eyes: Normal Conjunctiva ENT: Normal External Ears, Nose and Mouth. Neck: Full range of motion. No meningismus. Resp: Clear to auscultation bilaterally Cardio: Regular rate and rhythm, no murmurs Abd: Soft, non tender, non distended. Normal bowel sounds Skin: No petechiae or rashes Back: No midline or flank tenderness Ext: No cyanosis, or edema Neur: Awake and alert Psych: Normal Mood and Affect Result Diagram: 12/08/18181712/08/181817 Results 24 hrs Laboratory Tests Test 12/08/18 18:13 12/08/18 18:18 12/08/18 19:05 12/08/18 20:16 Bedside Glucose 80 mg/dL 142 mg/dL 129 mg/dL White Blood Count 11.3 10^3/ul Red Blood Count 4.78 10^6/ul Hemoglobin 14.8 g/dl Hematocrit 42.4 % Mean Corpuscular 88.7 fl Volume Mean Corpuscular 31.0 pg Hemoglobin Mean Corpuscular 34.9 g/dl Hemoglobin Concent Red Cell 13.4 % Distribution Width Platelet Count 265 10^3/UL Mean Platelet 11.8 fl Volume Immature 0.200 % Granulocytes % Neutrophils % 73.4 % Lymphocytes % 11.1 % Monocytes % 12.6 % Eosinophils % 2.0 % Basophils % 0.7 % Nucleated Red Blood 0.0 /100WBC Cells % Immature 0.020 10^3/ul Granulocytes # Neutrophils # 8.3 10^3/ul Lymphocytes # 1.3 10^3/ul Monocytes # 1.4 10^3/ul Eosinophils # 0.2 10^3/ul Basophils # 0.1 10^3/ul Nucleated Red Blood 0.0 10^3/ul Cells # Sodium Level 140 mmol/L Potassium Level 4.4 mmol/L Chloride Level 104 mmol/L Carbon Dioxide 23 mmol/L Level Anion Gap 13 Blood Urea Nitrogen 16 mg/dl Creatinine 0.96 mg/dl Est Glomerular > 60 mL/min Filtrat Rate mL/min Glucose Level 80 mg/dl Calcium Level 9.3 mg/dl Total Bilirubin 1.2 mg/dl Direct Bilirubin 0.00 mg/dl Indirect Bilirubin 1.2 mg/dl Aspartate Amino 42 IU/L Transf (AST/SGOT) Alanine 65 IU/L Aminotransferase (A LT/SGPT) Alkaline 128 IU/L Phosphatase Total Protein 8.6 g/dl Albumin 4.5 g/dl Globulin 4.10 g/dl Albumin/Globulin 1.09 Ratio Lipase 48 U/L Test 12/08/18 21:05 Bedside Glucose 109 mg/dL Current Medications Medications Dose Sig/Dimitri Start Time Status Last (Trade) Ordered Route PRN Stop Time Admin Dose Reason Admin 1,000 ml @ Q10H STAT 12/08/18 12/08/18 Dextrose/Sodi 100 mls/hr IV 18:00 18:30 um Chloride 12/09/18 03:59 Procedures/MDM Patient is a 47-year-old male presents with acute hypoglycemia on oral hypoglycemic agents. I am concerned about persistent hypoglycemia. The patient was given juice but I started him on D5 normal saline at 100 mill liters per hour. He will be admitted to the care of Dr. Evangelista who was requested telemetry admission. The patient will be admitted to an observation status. He has gotten serial Accu-Cheks which the last 3 have been greater than 100. Departure Diagnosis: Primary Impression: Hypoglycemia Condition: OBDULIO Sidhu MD Dec 08, 2018 21:32
[2018-12-08] MEDS ORDERED: CLOP75TA28 PO (21:37)
[2018-12-08] MEDS ORDERED: LISI-313 PO (21:40)
[2018-12-08] MEDS ORDERED: AMIO200T4 PO (21:40)
[2018-12-08] MEDS ORDERED: NACL 0.9% 3 ML SYG IV SCH (22:00)
[2018-12-08] MEDS ORDERED: BISACODYL (EC) 5 MG TAB PO PRN (22:00)
[2018-12-08] MEDS ORDERED: ONDANSETRON 4 MG INJ IV PRN ×2 (22:00)
[2018-12-08] MEDS ORDERED: ACETAMINOPHEN 325 MG TAB PO PRN ×2 (22:00)
[2018-12-08] MEDS ORDERED: DOCUSATE SODIUM 100 MG CAP PO PRN (22:00)
--- NOTE | 2018-12-08 22:28 | HP ---
Date/Time of Note Date/Time of Note DATE: 12/08/18 TIME: 22:27 Assessment/Plan VTE Prophylaxis SCD applied (from Nsg): Yes Pharmacological prophylaxis: NA/contraindicated Pharm contraindication: low risk/ambulating Lines/Catheters IV Catheter Type (from Nrsg): Saline Lock Assessment/Plan Hospital Course This is a 47-year-old male being admitted to the telemetry floor for: #1 hypoglycemia: Secondary to poor p.o. intake, nausea vomiting diarrhea, diabetic med use. Patient reports that he has been continuing to take his metformin and glipizide despite having a poor appetite. At the current time we will put the patient on D5 half-normal saline. We will hold his metformin and glipizide. Will monitor sugars closely. #2 diarrhea: Patient has been having diarrhea for the last month but it becoming worse recently. Possibly gastrointestinal versus medication related. There is a possibility that this could be secondary to his metformin use as well. I will order stool studies. Will hold metformin and glipizide at the current time, hydrate the patient. Insulin sliding scale. Consider decreasing the dose of his metformin and assessing his response. Patient also reported a history of clots in the stool which has resolved, will need to continue to monitor. His hemoglobin appears at baseline. #3 coronary artery disease: Patient had a history of STEMI. He is status post multivessel stenting. He did have an ejection fraction of approximately 35%. We will continue patient's home medications including Plavix. Will consult cardiology check an ekg, normal sinus on tele. #4 diabetes mellitus: Recent hemoglobin A1c was 8.8. He is currently on metformin and glipizide, I have a suspicion at the metformin could be causing his diarrhea. Nonetheless we will check stool studies. Will hold metformin and glipizide at the current time given his hypoglycemia. Consider restarting metformin at a lower dose. #5 hypertension: Resume patient's home medications #6 history of paroxysmal A. fib: Currently on amiodarone, will consult cardiology for further guidance #7 cardiomyopathy: History of ejection fraction of 35%, currently not decompensated. Consult cardiology monitor closely. Continue patient's home medications. #8 dyslipidemia: Continue statin #9 DVT GI prophylaxis: SCDs, no GI prophylaxis indicated Further treatment strategy will be implemented as per the clinical course. Result Diagram: 12/08/18 1818 12/08/18 1818 Results 24hrs Laboratory Tests Test 12/08/18 18:13 12/08/18 18:18 12/08/18 19:05 12/08/18 20:16 Bedside Glucose 80 142 129 White Blood Count 11.3 #H Red Blood Count 4.78 Hemoglobin 14.8 Hematocrit 42.4 Mean Corpuscular 88.7 Volume Mean Corpuscular 31.0 Hemoglobin Mean Corpuscular 34.9 Hemoglobin Concent Red Cell 13.4 Distribution Width Platelet Count 265 Mean Platelet Volume 11.8 H Immature 0.200 Granulocytes % Neutrophils % 73.4 Lymphocytes % 11.1 L Monocytes % 12.6 H Eosinophils % 2.0 Basophils % 0.7 Nucleated Red Blood 0.0 Cells % Immature 0.020 Granulocytes # Neutrophils # 8.3 H Lymphocytes # 1.3 Monocytes # 1.4 H Eosinophils # 0.2 Basophils # 0.1 Nucleated Red Blood 0.0 Cells # Sodium Level 140 Potassium Level 4.4 Chloride Level 104 Carbon Dioxide Level 23 Anion Gap 13 Blood Urea Nitrogen 16 Creatinine 0.96 Est Glomerular > 60 Filtrat Rate mL/min Glucose Level 80 Calcium Level 9.3 Total Bilirubin 1.2 Direct Bilirubin 0.00 Indirect Bilirubin 1.2 H Aspartate Amino 42 Transf (AST/SGOT) Alanine 65 Aminotransferase (AL T/SGPT) Alkaline Phosphatase 128 H Total Protein 8.6 H Albumin 4.5 Globulin 4.10 H Albumin/Globulin 1.09 Ratio Lipase 48 Test 12/08/18 21:05 12/08/18 22:13 Bedside Glucose 109 98 HPI/ROS Admit Date/Time Admit Date/Time Hx of Present Illness Chief complaint: Nausea vomiting and diarrhea over the last few weeks worse over the last 3 days weakness This is a 47-year-old male with a recent history of STEMI status post stent, paroxysmal A. fib, cardiomyopathy, diabetes mellitus who presents to the emergency department complaining of nausea vomiting and diarrhea for the last few weeks with a getting worse over the last 3 days. Patient reports that he has been having diarrhea over the course of the last few weeks when he started his hospitalization. He is unable to pinpoint the exact initiation of the diarrhea but he does feel that it was during his hospitalization that is started. He does report an episode of having blood clots however these are longer occurring. He did have approximately 6 bowel movements a day for the l ast 2 to 3 days. He denies any foul-smelling stool or any fevers. He has felt weak. He is appetite has been decreased. He has been taking his diabetes medications despite his decreased appetite. He is also on Plavix, as his Brilinta was not able to be authorized. When he arrived to the emergency department his blood sugar was noted to be 58. He does report that after he eats he usually ends up having a loose bowel movement. Patient also does report that he did eat some old eggs, however he does report that the diarrhea has started prior to him eating eggs as well. Allergies: NKDA Medications:Glipizide 5 mg p.o. daily Metformin 1000 mg p.o. twice daily Amiodarone 200 mg p.o. twice daily Aspirin 81 mg p.o. daily Atorvastatin 80 mg p.o. daily Carvedilol 3.125 p.o. twice daily Plavix 75 mg p.o. daily Colace 100 mg p.o. twice daily Lisinopril 5 mg p.o. daily ROS Const: As per HPI Eyes : No pain discharge or redness or change in visual acuity ENT: No pain, sore throat, congestion, congestion, dysphagia or discharge Respiratory: No shortness of breath, cough, sputum, wheezing, or pleuritic pain Cardiovascular: No chest pain, palpitation, PND, or edema GI : As per HPI Genitourinary: No dysuria, hematuria, flank pain , discharge or CVA tenderness Musculoskeletal: No joint pain, back pain, neck pain, restricted range of motion in neck or joints Skin: No rash, bruising or hives Neuro: No headache, dizziness, syncope, seizure, focal weakness Endocrine: No polyuria, polydipsia, temperature intolerance Psych: No hallucination, depression, anxiety or suicidal ideation PMH/Family/Social Past Medical History Coronary artery disease status post multivessel stenting Cardiomyopathy with ejection fraction of approximately 35% Diabetes mellitus Hypertension Dyslipidemia Anxiety Paroxysmal A. fib Medications Current Medications Dextrose/Sodium Chloride 1,000 ml @ 100 mls/hr Q10H STAT IV Last administered on 12/08/18at 18:30; Admin Dose 100 MLS/HR; Start 12/08/18 at 18:00; Stop 12/09/18 at 03:59 Ondansetron HCl (Zofran Inj) 4 mg ER BRIDGE PRN IV NAUSEA/VOMITING; Start 12/08/18 at 22:00; Stop 12/09/18 at 21:59 Acetaminophen (Tylenol Tab) 650 mg ER BRIDGE PRN PO .MILD PAIN 1-3 OR TEMP; Start 12/08/18 at 22:00; Stop 12/09/18 at 21:59 IV Flush (NS 3 ml) 3 ml PER PROTOCOL IV ; Start 12/08/18 at 22:00 Ondansetron HCl (Zofran Inj) 4 mg Q6H PRN IV NAUSEA/VOMITING; Start 12/08/18 at 22:00 Acetaminophen (Tylenol Tab) 650 mg Q6H PRN PO .PAIN 1-3 OR TEMP; Start 12/08/18 at 22:00 Docusate Sodium (Colace) 100 mg Q12H PRN PO .CONSTIPATION; Start 12/08/18 at 22:00 Bisacodyl (Dulcolax) 5 mg DAILY PRN PO .CONSTIPATION; Start 12/08/18 at 22:00 Aspirin (Halfprin) 81 mg QAM PO ; Start 12/09/18 at 09:00 Atorvastatin Calcium (Lipitor) 80 mg DAILY@21 PO ; Start 12/09/18 at 21:00 Clopidogrel Bisulfate (plaVIX) 75 mg DAILY PO ; Start 12/09/18 at 09:00 Docusate Sodium (Colace) 100 mg BID PO ; Start 12/09/18 at 09:00 Lisinopril (Zestril) 5 mg QAM PO ; Start 12/09/18 at 09:00 Diagnostic Test (Pha) (Accu-Chek) 1 ea 02 XX ; Start 12/09/18 at 02:00 Insulin Aspart (Novolog Insulin Pen) NOVOLOG *MILD* ALGORITHM WITH MEALS BEDTIME SC ; Start 12/09/18 at 08:00 Miscellaneous Information 1 ea NOTE XX ; Start 12/08/18 at 22:30 Glucose (Glutose) 15 gm Q15M PRN PO DECREASED GLUCOSE; Start 12/08/18 at 22:30 Glucose (Glutose) 22.5 gm Q15M PRN PO DECREASED GLUCOSE; Start 12/08/18 at 22:30 Dextrose (D50w Syringe) 25 ml Q15M PRN IV DECREASED GLUCOSE; Start 12/08/18 at 22:30 Dextrose (D50w Syringe) 50 ml Q15M PRN IV DECREASED GLUCOSE; Start 12/08/18 at 22:30 Glucagon (Glucagen) 1 mg Q15M PRN IM DECREASED GLUCOSE; Start 12/08/18 at 22:30 Glucose (Glutose) 15 gm Q15M PRN BUCCAL DECREASED GLUCOSE; Start 12/08/18 at 22:30 Coded Allergies: No Known Allergy (Unverified , 12/08/18) Past Surgical History PCI status post stent x2 Family History Significant Family History: no pertinent family hx Social History Alcohol Use: none Smoking Status: Never smoker Drug Use: none Exam/Review of Systems Vital Signs Vitals Vital Signs Date Temp Pulse Resp B/P (MAP) Pulse Ox O2 O2 Flow FiO2 Time Delivery Rate 12/08/18 71 16 125/81 99 Room Air 22:20 (96) 12/08/18 97.9 17:46 Exam Exam General: Patient is a pleasant male currently lying in bed in no acute distress. HEENT: Atraumatic, normocephalic. The pupils are equal, round and reactive. Extraocular motor are intact Neck: Supple with full range of motion. No rigidity or meningismus Chest: Nontender Lungs: Clear to auscultation bilaterally no crackles rales or wheezing Heart: Normal S1-S2, Regular rhythm and rate. No murmur, S3, or S4 Abdomen: Soft , nontender, nondistended , bowel sounds are present. No guarding no rebound tenderness , No masses or organomegaly. No costovertebral temporal angle mass Extremities: Normal to inspection, no edema no cyanosis Neurologic: Normal mental status, speech normal, cranial nerves II through XII are intact, motor and sensory are intact, Additional Comments PROCEDURE: US Abdomen. CLINICAL INDICATION: abdominal pain TECHNIQUE: Multiple real-time images were acquired of the patient's right upper quadrant abdomen and retroperitoneum utilizing a high resolution transducer. COMPARISON: US ABDOMEN 07/02/2017 FINDINGS: The liver demonstrates normal echogenicity. The liver is normal in size and no focal solid lesions are seen. The liver measures 12.9 cm in length. The portal vein is patent with normal direction of flow. No intrahepatic biliary dilatation is seen. The gallbladder is filled with multiple calcified stones. There is no pericholecystic fluid or gallbladder wall thickening. The common bile duct measures 3 mm in maximal dimension. The pancreas is not well seen due to overlying bowel gas. No free fluid is identified. The right kidney is normal in size, and demonstrate normal echogenicity and cortical thickness. The right kidney measures 12.5 cm in long dimension. There is no evidence of hydronephrosis. There are no kidney stones. RPTAT: AA IMPRESSION: Gallbladder filled with multiple calcified stones. .Dale Mao MD, MD Date Time Electronically viewed and signed by .Dale Mao MD, MD on 12/08/2018 18:50 .S/ CC: OBDULIO LOVE MD [id number] NORMA FLYNN Dec 08, 2018 22:28
[2018-12-08] MEDS ORDERED: GLUCOSE GEL 15 GRAM TUBE BUCCAL PRN (22:30)
[2018-12-08] MEDS ORDERED: GLUCAGON 1 MG INJ IM PRN (22:30)
[2018-12-08] MEDS ORDERED: GLUCOSE GEL 15 GRAM TUBE PO PRN ×2 (22:30)
[2018-12-08] MEDS ORDERED: DEXTROSE 50% 50 ML SYRINGE IV PRN ×2 (22:30)
[2018-12-08 23:10] VITALS: BP 161/77; PULSE 82; RESP 18
[2018-12-08 23:35] VITALS: Ht 177.8 cm; Wt 95.5 kg
[2018-12-09] MEDS ORDERED: ACCU-CHEK XX SCH (02:00)
[2018-12-09] MEDS ORDERED: MELATONIN 5 MG TABLET PO SCH (02:15)
[2018-12-09 03:17] VITALS: BP 91/56; PULSE 62; RESP 18
[2018-12-09 05:59] VITALS: BP 122/75; PULSE 63
[2018-12-09 07:18] VITALS: BP 123/67; PULSE 65; RESP 18
[2018-12-09] MEDS: INSULIN ASPART [NOVOLOG] 3 ML PEN SC SCH ×3 (07:46→17:24)
[2018-12-09] MEDS ORDERED: CLOPIDOGREL 75 MG TAB PO SCH ×2 (09:00→17:30)
[2018-12-09] MEDS ORDERED: DOCUSATE SODIUM 100 MG CAP PO SCH (09:00)
[2018-12-09] MEDS ORDERED: ASPIRIN (EC) 81 MG TAB PO SCH (09:00)
[2018-12-09] MEDS ORDERED: AMIODARONE 200 MG TAB PO SCH (09:00)
[2018-12-09] MEDS ORDERED: LISINOPRIL 5 MG TAB PO SCH (09:00)
[2018-12-09 11:22] VITALS: BP 108/64; PULSE 62; RESP 18
--- NOTE | 2018-12-09 14:12 | DS ---
Date/Time of Note Date/Time of Note DATE: 12/09/18 TIME: 14:03 Discharge Summary Admission/Discharge Info Admit Date/Time Dec 08, 2018 at 21:57 Discharge Date/Time Discharge Diagnosis 1. Hypoglycemia due to poor intake, resolved 2. DM, resume metformin follow up with PCP 3. Acute gastroenteritis, resolved 4. CAD with h/o STEMI and stent, on plavix and statin 5. CHF due to ischemic cardiomyopathy, systolic with LVEF 35%, chronic, stable, follow up cardiology 6. HTN, controlled 7. Dyslipidemia, on statin 8. h/o paroxysmal atrial fibrillation, sinus now, on amiodarone Patient Condition: Stable Hospital Course This is a 47-year-old male with a recent history of STEMI status post stent, paroxysmal A. fib, cardiomyopathy, diabetes mellitus who presents to the emergency department complaining of nausea vomiting and diarrhea for the last f ew weeks with a getting worse over the last 3 days. Patient reports that he has been having diarrhea over the course of the last few weeks when he started his hospitalization. He is unable to pinpoint the exact initiation of the diarrhea but he does feel that it was during his hospitalization that is started. He does report an episode of having blood clots however these are longer occurring. He did have approximately 6 bowel movements a day for the last 2 to 3 days. He denies any foul-smelling stool or any fevers. He has felt weak. He is appetite has been decreased. He has been taking his diabetes medications despite his dec reased appetite. He is also on Plavix, as his Brilinta was not able to be authorized. When he arrived to the emergency department his blood sugar was noted to be 58. He does report that after he eats he usually ends up having a loose bowel movement. Patient also does report that he did eat some old eggs, however he does report that the diarrhea has started prior to him eating eggs as well. Metformin and glipizide are on hold. Blood glucose has been stable after admission. He is instructed to resume metformin tomorrow and follow up with FS, resume glipizide if Blood glucose >120 and if he has adequate intake. No nausea or vomiting, no diarrhea after the admission. Home Meds Active Scripts Metformin* (Glucophage*) 500 Mg Tab, 1000 MG PO BID WITH MEALS for 60 Days, #120 TAB 5 Refills Prov:BAYRON MULLEN MD 11/11/18 Carvedilol* (Carvedilol*) 3.125 Mg Tablet, 3.125 MG PO BID for 60 Days, #120 TAB 5 Refills Prov:BAYRON MULLEN MD 11/11/18 Atorvastatin* (Atorvastatin*) 80 Mg Tablet, 80 MG PO DAILY@21 for 90 Days, #90 TAB 5 Refills Prov:BAYRON MULLEN MD 11/11/18 Reported Medications Lisinopril* (Lisinopril*) 5 Mg Tablet, 5 MG PO QAM, #30 TAB 12/08/18 Amiodarone Hcl* (Amiodarone Hcl*) 200 Mg Tablet, 200 MG PO BID, #60 TAB 12/08/18 Clopidogrel Bisulfate (Clopidogrel) 75 Mg Tablet, 75 MG PO DAILY for 30 Days, #30 TAB TAKE 1 TABLET BY MOUTH EVERY DAY 12/08/18 Aspirin Ec (Aspir 81) 81 Mg Tablet.dr, 81 MG PO QAM, #30 TAB 11/29/18 Discontinued Scripts Docusate Sodium* (Colace*) 100 Mg Capsule, 100 MG PO BID, #60 CAP 2 Refills Prov:CIERA BUTCHER S. 12/01/18 Glipizide* (Glipizide*) 5 Mg Tablet, 5 MG PO AC BREAKFAST for 60 Days, #60 TAB Prov:BAYRON MULLEN MD 11/11/18 Ticagrelor* (Brilinta*) 90 Mg Tablet, 90 MG PO BID for 30 Days, #60 TAB 9 Refills Prov:BAYRON MULLEN MD 11/11/18 Amiodarone Hcl* (Amiodarone Hcl*) 200 Mg Tablet, 200 MG PO DAILY, #30 TAB 1 Refill Prov:CIERA BUTCHER S. 12/01/18 Lisinopril* (Lisinopril*) 5 Mg Tablet, 5 MG PO DAILY for 90 Days, #90 TAB 3 Refills Prov:BAYRON MULLEN MD 11/11/18 Follow-up Plan PCP and cardiology in one week Primary Care Provider Care Physician No Primary Pending Labs Laboratory Tests Test 12/08/18 18:13 12/08/18 18:18 12/08/18 19:05 12/08/18 20:16 Bedside 80 142 129 Glucose mg/dL (70-220) mg/dL (70-220) mg/dL (70-220) White Blood 11.3 Count 10^3/ul (4.8-1 0.8) Red Blood 4.78 Count 10^6/ul (4.70- 6.10) Hemoglobin 14.8 g/dl (14.0-18. 0) Hematocrit 42.4 % (42.0-52.0) Mean 88.7 Corpuscular fl (82.0-101.0 Volume ) Mean 31.0 Corpuscular pg (29.0-33.0) Hemoglobin Mean 34.9 Corpuscular g/dl (32.0-37. Hemoglobin Conc 0) ent Red Cell 13.4 Distribution % (11.5-14.5) Width Platelet Count 265 10^3/UL (140-4 15) Mean Platelet 11.8 Volume fl (7.4-10.4) Immature 0.200 Granulocytes % % (0.001-0.429 ) Neutrophils % 73.4 % (39.0-77.0) Lymphocytes % 11.1 % (15.0-51.0) Monocytes % 12.6 % (0.0-11.0) Eosinophils % 2.0 % (0.0-7.0) Basophils % 0.7 % (0.0-2.0) Nucleated Red 0.0 Blood Cells % /100WBC (0.0-0 .0) Immature 0.020 Granulocytes # 10^3/ul (0.0-0 .031) Neutrophils # 8.3 10^3/ul (1.6-7 .5) Lymphocytes # 1.3 10^3/ul (0.8-2 .9) Monocytes # 1.4 10^3/ul (0.3-0 .9) Eosinophils # 0.2 10^3/ul (0.0-0 .5) Basophils # 0.1 10^3/ul (0.0-0 .1) Nucleated Red 0.0 Blood Cells # 10^3/ul (0.0-0 .0) Sodium Level 140 mmol/L (135-14 4) Potassium 4.4 Level mmol/L (3.5-5. 1) Chloride Level 104 mmol/L (97-110 ) Carbon Dioxide 23 Level mmol/L (21-31) Anion Gap 13 (5-13) Blood Urea 16 Nitrogen mg/dl (7-20) Creatinine 0.96 mg/dl (0.61-1. 24) Est Glomerular > 60 Filtrat mL/min (>60) Rate mL/min Glucose Level 80 mg/dl (70-220) Calcium Level 9.3 mg/dl (8.4-10. 2) Total 1.2 Bilirubin mg/dl (0.2-1.3 ) Direct 0.00 Bilirubin mg/dl (0.00-0. 20) Indirect 1.2 Bilirubin mg/dl (0-1.1) Aspartate Amino 42 Transf (AST/SGO IU/L (15-46) T) Alanine 65 Aminotransferas IU/L (13-69) e (ALT/SGPT) Alkaline 128 Phosphatase IU/L (42-121) Total Protein 8.6 g/dl (6.1-8.1) Albumin 4.5 g/dl (3.3-4.9) Globulin 4.10 g/dl (1.3-3.2) Albumin/Globuli 1.09 n Ratio Lipase 48 U/L (23-300) Test 12/08/18 21:05 12/08/18 22:13 12/09/18 01:35 12/09/18 07:45 Bedside 109 98 145 71 Glucose mg/dL (70-220) mg/dL (70-220) mg/dL (70-220) mg/dL (70-220) Test 12/09/18 07:46 12/09/18 11:39 White Blood 8.9 Count 10^3/ul (4.8-10 .8) Red Blood 4.25 Count 10^6/ul (4.70-6 .10) Hemoglobin 13.1 g/dl (14.0-18.0 ) Hematocrit 37.7 % (42.0-52.0) Mean 88.7 Corpuscular fl (82.0-101.0) Volume Mean 30.8 Corpuscular pg (29.0-33.0) Hemoglobin Mean 34.7 Corpuscular g/dl (32.0-37.0 Hemoglobin Conc ) ent Red Cell 13.3 Distribution % (11.5-14.5) Width Platelet Count 207 10^3/UL (140-41 5) Mean Platelet 12.1 Volume fl (7.4-10.4) Immature 0.200 Granulocytes % % (0.001-0.429) Neutrophils % 64.2 % (39.0-77.0) Lymphocytes % 16.5 % (15.0-51.0) Monocytes % 14.7 % (0.0-11.0) Eosinophils % 3.6 % (0.0-7.0) Basophils % 0.8 % (0.0-2.0) Nucleated Red 0.0 Blood Cells % /100WBC (0.0-0. 0) Immature 0.020 Granulocytes # 10^3/ul (0.0-0. 031) Neutrophils # 5.7 10^3/ul (1.6-7. 5) Lymphocytes # 1.5 10^3/ul (0.8-2. 9) Monocytes # 1.3 10^3/ul (0.3-0. 9) Eosinophils # 0.3 10^3/ul (0.0-0. 5) Basophils # 0.1 10^3/ul (0.0-0. 1) Nucleated Red 0.0 Blood Cells # 10^3/ul (0.0-0. 0) Sodium Level 142 mmol/L (135-144 ) Potassium 3.7 Level mmol/L (3.5-5.1 ) Chloride Level 108 mmol/L (97-110) Carbon Dioxide 25 Level mmol/L (21-31) Anion Gap 9 (5-13) Blood Urea 12 mg/dl (7-20) Nitrogen Creatinine 0.79 mg/dl (0.61-1.2 4) Est Glomerular > 60 Filtrat mL/min (>60) Rate mL/min Glucose Level 64 mg/dl (70-220) Calcium Level 8.6 mg/dl (8.4-10.2 ) Total 1.0 Bilirubin mg/dl (0.2-1.3) Direct 0.00 Bilirubin mg/dl (0.00-0.2 0) Indirect 1.0 Bilirubin mg/dl (0-1.1) Aspartate Amino 36 IU/L (15-46) Transf (AST/SGO T) Alanine 58 IU/L (13-69) Aminotransferas e (ALT/SGPT) Alkaline 95 Phosphatase IU/L (42-121) Total Protein 7.3 g/dl (6.1-8.1) Albumin 3.9 g/dl (3.3-4.9) Globulin 3.40 g/dl (1.3-3.2) Albumin/Globuli 1.14 n Ratio Bedside 98 Glucose mg/dL (70-220) BALDO VALDEZ MD Dec 09, 2018 14:12
--- NOTE | 2018-12-09 15:07 | RADRPT ---
Vent Rate: 60 bpm RR Interval: 996 msec [place] Interval: 192 msec QRS Duration: 104 msec QT Interval: 474 msec QTC Interval: 475 msec P-R-T [place]: 17 - -8 - 81 degrees Sinus rhythm...normal P axis, V-rate 50- 99 Anteroseptal infarct, age indeterminate...Q >35mS, T neg, V1-V2 Electronically Signed By: Beny Hernandez
[2018-12-09 15:21] VITALS: BP 112/67; PULSE 65; RESP 18
--- NOTE | 2018-12-09 17:22 | CONS ---
Assessment/Plan Assessment/Plan Hospital Course (Demo Recall) Coronary artery disease WITH HISTOYR OF ST elevation LA: currently with no angina Status post multivessel stenting Diabetes hypertension Dyslipidemia Anxiety Nausea vomiting poor appetite Recommendations: cont ASA pt states he can not afford brilinta and wants to be switched to plaivx. he was startedon plavix this am. will give extra 150 bolus dose now. DM management as per IM GI work-up and treatment as per internal medicine cont other home cardiac meds except dec amiodarone 200 qd DC planning as per internal medicine Thank you JEWEL HERNANDEZ MD [facility] Consultation Date/Type/Reason Admit Date/Time Date of Consultation: Dec 09, 2018 Type of Consult Cardiology Reason for Consultation CAD Requesting Provider: NORMA FLYNN Date/Time of Note DATE: 12/09/18 TIME: 17:17 Hx of Present Illness Interventional cardiology consultation note Chief complaint: hypoglycemia , n/v/ d Reason for consult: CAD History of present illness: Thank you for this referral. History was informed the patient discussion physician and staff review of the old chart This is a 39-year-old gentleman with history of coronary artery disease status post anterior ST elevation myocardial infarction about A month ago status post emergent PCI of the LAD and also PCI of the ramus intermediate who presents emergency above complaint. pt has had N/V diarrhea and poor appetite and was admitted for hypoglycemia no cp. Allergies: No known drug allergies Medications as per medical reconciliation sheet which was personally reviewed Family history: No history of early coronary artery disease Social history: Does not smoke or drink Past medical history: History of pancreatitis 2017. Diabetes hypertension dyslipidemia History of anterior ST elevation myocardial infarction October 2018 he underwent P CI of his LAD at that time. He also had ramus intermediate disease which was successfully stented. 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 During the acute LA he also had episode of proximal atrial fibrillation but has remained sinus rhythm now Review of system: Patient denies all others except for above-mentioned Past Medical History Home Meds Active Scripts Metformin* (Glucophage*) 500 Mg Tab, 1000 MG PO BID WITH MEALS for 60 Days, #120 TAB 5 Refills Prov:BAYRON MULLEN MD 11/11/18 Carvedilol* (Carvedilol*) 3.125 Mg Tablet, 3.125 MG PO BID for 60 Days, #120 TAB 5 Refills Prov:BAYRON MULLEN MD 11/11/18 Atorvastatin* (Atorvastatin*) 80 Mg Tablet, 80 MG PO DAILY@21 for 90 Days, #90 TAB 5 Refills Prov:BAYRON MULLEN MD 11/11/18 Reported Medications Lisinopril* (Lisinopril*) 5 Mg Tablet, 5 MG PO QAM, #30 TAB 12/08/18 Amiodarone Hcl* (Amiodarone Hcl*) 200 Mg Tablet, 200 MG PO BID, #60 TAB 12/08/18 Clopidogrel Bisulfate (Clopidogrel) 75 Mg Tablet, 75 MG PO DAILY for 30 Days, #30 TAB TAKE 1 TABLET BY MOUTH EVERY DAY 12/08/18 Aspirin Ec (Aspir 81) 81 Mg Tablet.dr, 81 MG PO QAM, #30 TAB 11/29/18 Discontinued Scripts Docusate Sodium* (Colace*) 100 Mg Capsule, 100 MG PO BID, #60 CAP 2 Refills Prov:CIERA BUTCHER 12/01/18 Glipizide* (Glipizide*) 5 Mg Tablet, 5 MG PO AC BREAKFAST for 60 Days, #60 TAB Prov:BAYRON MULLEN MD 11/11/18 Ticagrelor* (Brilinta*) 90 Mg Tablet, 90 MG PO BID for 30 Days, #60 TAB 9 Refills Prov:BAYRON MULLEN MD 11/11/18 Amiodarone Hcl* (Amiodarone Hcl*) 200 Mg Tablet, 200 MG PO DAILY, #30 TAB 1 Refill Prov:CIERA BUTCHER 12/01/18 Lisinopril* (Lisinopril*) 5 Mg Tablet, 5 MG PO DAILY for 90 Days, #90 TAB 3 Refills Prov:BAYRON MULLEN MD 11/11/18 Medications Current Medications IV Flush (NS 3 ml) 3 ml PER PROTOCOL IV ; Start 12/08/18 at 22:00 Ondansetron HCl (Zofran Inj) 4 mg Q6H PRN IV NAUSEA/VOMITING; Start 12/08/18 at 22:00 Acetaminophen (Tylenol Tab) 650 mg Q6H PRN PO .PAIN 1-3 OR TEMP; Start 12/08/18 at 22:00 Docusate Sodium (Colace) 100 mg Q12H PRN PO .CONSTIPATION; Start 12/08/18 at 22:00 Bisacodyl (Dulcolax) 5 mg DAILY PRN PO .CONSTIPATION; Start 12/08/18 at 22:00 Aspirin (Halfprin) 81 mg QAM PO Last administered on 12/09/18at 08:23; Admin Dose 81 MG; Start 12/09/18 at 09:00 Atorvastatin Calcium (Lipitor) 80 mg DAILY@21 PO ; Start 12/09/18 at 21:00 Clopidogrel Bisulfate (plaVIX) 75 mg DAILY PO Last administered on 12/09/18at 08:23; Admin Dose 75 MG; Start 12/09/18 at 09:00 Docusate Sodium (Colace) 100 mg BID PO ; Start 12/09/18 at 09:00 Lisinopril (Zestril) 5 mg QAM PO Last administered on 12/09/18at 08:25; Admin Dose 5 MG; Start 12/09/18 at 09:00 Diagnostic Test (Pha) (Accu-Chek) 1 ea 02 XX Last administered on 12/09/18at 02:05; Admin Dose 1 EA; Start 12/09/18 at 02:00 Insulin Aspart (Novolog Insulin Pen) NOVOLOG *MILD* ALGORITHM WITH MEALS BEDTIME SC ; Start 12/09/18 at 07:55 Miscellaneous Information 1 ea NOTE XX ; Start 12/08/18 at 22:30 Glucose (Glutose) 15 gm Q15M PRN PO DECREASED GLUCOSE; Start 12/08/18 at 22:30 Glucose (Glutose) 22.5 gm Q15M PRN PO DECREASED GLUCOSE; Start 12/08/18 at 22:30 Dextrose (D50w Syringe) 25 ml Q15M PRN IV DECREASED GLUCOSE; Start 12/08/18 at 22:30 Dextrose (D50w Syringe) 50 ml Q15M PRN IV DECREASED GLUCOSE; Start 12/08/18 at 22:30 Glucagon (Glucagen) 1 mg Q15M PRN IM DECREASED GLUCOSE; Start 12/08/18 at 22:30 Glucose (Glutose) 15 gm Q15M PRN BUCCAL DECREASED GLUCOSE; Start 12/08/18 at 22:30 Melatonin (Melatonin) 5 mg HS PO Last administered on 12/09/18at 02:07; Admin Dose 5 MG; Start 12/09/18 at 02:15 Carvedilol (Coreg) 3.125 mg BID PO Last administered on 12/09/18at 08:24; Admin Dose 3.125 MG; Start 12/09/18 at 09:00 Amiodarone HCl (Cordarone) 200 mg BID PO Last administered on 12/09/18at 08:24; Admin Dose 200 MG; Start 12/09/18 at 09:00 Allergies: Coded Allergies: No Known Allergy (Unverified , 12/08/18) Social History Alcohol Use: none Smoking Status: Never smoker Drug Use: none Exam/Review of Systems Vital Signs Vitals Vital Signs Date Temp Pulse Resp B/P (MAP) Pulse Ox O2 O2 Flow FiO2 Time Delivery Rate 12/09/18 98.2 65 18 112/67 97 Room Air 15:21 (82) Intake and Output 12/08/18 12/08/18 12/09/18 1515:00 23:00 07:00 OutputOutput Total 725 ml BalanceBalance -725 ml Exam Exam General: no acute distress HEENT: NC/AT. pupils are equal. round. NECK: NO JVD. no stridor. CV: RRR. systolic murmur; no gallop or rubs. PULM: no wheezing or rhonchi. GI: SOFT, NT, ND, no rebound or guarding Extremity: trace B/L LE edema. no clubbing. neuro: awake and alert, OX3. Psych: calm and pleasant rectal: deferred : normal Labs Result Diagram: 12/09/18 0746 12/09/18 0746 Results 24hrs Laboratory Tests Test 12/08/18 18:13 12/08/18 18:18 12/08/18 19:05 12/08/18 20:16 Bedside Glucose 80 142 129 White Blood Count 11.3 #H Red Blood Count 4.78 Hemoglobin 14.8 Hematocrit 42.4 Mean Corpuscular 88.7 Volume Mean Corpuscular 31.0 Hemoglobin Mean Corpuscular 34.9 Hemoglobin Concent Red Cell 13.4 Distribution Width Platelet Count 265 Mean Platelet Volume 11.8 H Immature 0.200 Granulocytes % Neutrophils % 73.4 Lymphocytes % 11.1 L Monocytes % 12.6 H Eosinophils % 2.0 Basophils % 0.7 Nucleated Red Blood 0.0 Cells % Immature 0.020 Granulocytes # Neutrophils # 8.3 H Lymphocytes # 1.3 Monocytes # 1.4 H Eosinophils # 0.2 Basophils # 0.1 Nucleated Red Blood 0.0 Cells # Sodium Level 140 Potassium Level 4.4 Chloride Level 104 Carbon Dioxide Level 23 Anion Gap 13 Blood Urea Nitrogen 16 Creatinine 0.96 Est Glomerular > 60 Filtrat Rate mL/min Glucose Level 80 Calcium Level 9.3 Total Bilirubin 1.2 Direct Bilirubin 0.00 Indirect Bilirubin 1.2 H Aspartate Amino 42 Transf (AST/SGOT) Alanine 65 Aminotransferase (AL T/SGPT) Alkaline Phosphatase 128 H Total Protein 8.6 H Albumin 4.5 Globulin 4.10 H Albumin/Globulin 1.09 Ratio Lipase 48 Test 12/08/18 21:05 12/08/18 22:13 12/09/18 01:35 12/09/18 07:45 Bedside Glucose 109 98 145 71 Test 12/09/18 07:46 12/09/18 11:39 White Blood Count 8.9 # Red Blood Count 4.25 L Hemoglobin 13.1 L Hematocrit 37.7 L Mean Corpuscular 88.7 Volume Mean Corpuscular 30.8 Hemoglobin Mean Corpuscular 34.7 Hemoglobin Concent Red Cell 13.3 Distribution Width Platelet Count 207 # Mean Platelet Volume 12.1 H Immature 0.200 Granulocytes % Neutrophils % 64.2 Lymphocytes % 16.5 Monocytes % 14.7 H Eosinophils % 3.6 Basophils % 0.8 Nucleated Red Blood 0.0 Cells % Immature 0.020 Granulocytes # Neutrophils # 5.7 Lymphocytes # 1.5 Monocytes # 1.3 H Eosinophils # 0.3 Basophils # 0.1 Nucleated Red Blood 0.0 Cells # Sodium Level 142 Potassium Level 3.7 Chloride Level 108 Carbon Dioxide Level 25 Anion Gap 9 Blood Urea Nitrogen 12 Creatinine 0.79 Est Glomerular > 60 Filtrat Rate mL/min Glucose Level 64 #L Calcium Level 8.6 Total Bilirubin 1.0 Direct Bilirubin 0.00 Indirect Bilirubin 1.0 Aspartate Amino 36 Transf (AST/SGOT) Alanine 58 Aminotransferase (AL T/SGPT) Alkaline Phosphatase 95 Total Protein 7.3 # Albumin 3.9 Globulin 3.40 H Albumin/Globulin 1.14 Ratio Bedside Glucose 98 Medications Medications Current Medications IV Flush (NS 3 ml) 3 ml PER PROTOCOL IV ; Start 12/08/18 at 22:00 Ondansetron HCl (Zofran Inj) 4 mg Q6H PRN IV NAUSEA/VOMITING; Start 12/08/18 at 22:00 Acetaminophen (Tylenol Tab) 650 mg Q6H PRN PO .PAIN 1-3 OR TEMP; Start 12/08/18 at 22:00 Docusate Sodium (Colace) 100 mg Q12H PRN PO .CONSTIPATION; Start 12/08/18 at 22:00 Bisacodyl (Dulcolax) 5 mg DAILY PRN PO .CONSTIPATION; Start 12/08/18 at 22:00 Aspirin (Halfprin) 81 mg QAM PO Last administered on 12/09/18at 08:23; Admin Dose 81 MG; Start 12/09/18 at 09:00 Atorvastatin Calcium (Lipitor) 80 mg DAILY@21 PO ; Start 12/09/18 at 21:00 Clopidogrel Bisulfate (plaVIX) 75 mg DAILY PO Last administered on 12/09/18at 08:23; Admin Dose 75 MG; Start 12/09/18 at 09:00 Docusate Sodium (Colace) 100 mg BID PO ; Start 12/09/18 at 09:00 Lisinopril (Zestril) 5 mg QAM PO Last administered on 12/09/18at 08:25; Admin Dose 5 MG; Start 12/09/18 at 09:00 Diagnostic Test (Pha) (Accu-Chek) 1 ea 02 XX Last administered on 12/09/18at 02:05; Admin Dose 1 EA; Start 12/09/18 at 02:00 Insulin Aspart (Novolog Insulin Pen) NOVOLOG *MILD* ALGORITHM WITH MEALS BEDTIME SC ; Start 12/09/18 at 07:55 Miscellaneous Information 1 ea NOTE XX ; Start 12/08/18 at 22:30 Glucose (Glutose) 15 gm Q15M PRN PO DECREASED GLUCOSE; Start 12/08/18 at 22:30 Glucose (Glutose) 22.5 gm Q15M PRN PO DECREASED GLUCOSE; Start 12/08/18 at 22:30 Dextrose (D50w Syringe) 25 ml Q15M PRN IV DECREASED GLUCOSE; Start 12/08/18 at 22:30 Dextrose (D50w Syringe) 50 ml Q15M PRN IV DECREASED GLUCOSE; Start 12/08/18 at 22:30 Glucagon (Glucagen) 1 mg Q15M PRN IM DECREASED GLUCOSE; Start 12/08/18 at 22:30 Glucose (Glutose) 15 gm Q15M PRN BUCCAL DECREASED GLUCOSE; Start 12/08/18 at 22:30 Melatonin (Melatonin) 5 mg HS PO Last administered on 12/09/18at 02:07; Admin Dose 5 MG; Start 12/09/18 at 02:15 Carvedilol (Coreg) 3.125 mg BID PO Last administered on 12/09/18at 08:24; Admin Dose 3.125 MG; Start 12/09/18 at 09:00 Amiodarone HCl (Cordarone) 200 mg BID PO Last administered on 12/09/18 08:24; Admin Dose 200 MG; Start 12/09/18 at 09:00 JEWEL HERNANDEZ MD Dec 09, 2018 17:21
[2018-12-09] MEDS ORDERED: ATORVASTATIN 80 MG TAB PO SCH (21:00)
[2018-12-10] MEDS ORDERED: AMIODARONE 200 MG TAB PO SCH (09:00)
== END 2018-12-09 18:24 | disposition home or self-care (01) ==
LOC: E/R 17:30 → TEL 21:57
PROVIDERS: ADMIT Family Medicine; ATTEND Family Medicine
DX: E11.649 Type 2 diabetes mellitus with hypoglycemia without coma (principal); K52.9 Noninfective gastroenteritis and colitis, unspecified; I25.10 Atherosclerotic heart disease of native coronary artery without angina pectoris; Z95.5 Presence of coronary angioplasty implant and graft; I10 Essential (primary) hypertension; Z79.84 Long term (current) use of oral hypoglycemic drugs; E78.5 Hyperlipidemia, unspecified; F41.9 Anxiety disorder, unspecified; I25.5 Ischemic cardiomyopathy; I48.0 Paroxysmal atrial fibrillation; Z79.01 Long term (current) use of anticoagulants
CPT/HCPCS: 36415; 76705; 80053; 82962; 83690; 85025; 93005; J1815; J7042; Z7500; Z7502; Z7610; G0378